=== PATIENT | female | born 1935 | race Caucasian/White ===

== ENCOUNTER 2017-07-05 02:18 | Inpatient (IN) | payer OTHER ==
[~2017-07-05] VITALS: Ht 160 cm; Wt 57.6 kg
[~2017-07-05 02:18] MED LIST: ALLO100T PO; AML5T PO; ASPI-231 PO; Atorvastatin Calcium PO; CLOP75TA28 PO; LEVO112T4 PO; LISI40TA PO; METO50TA7 PO; NITR0.4S29 SL
[2017-07-05] MEDS ORDERED: ONDANSETRON ODT 4 MG TAB PO ONE (02:45)
[2017-07-05 03:03] LABS: Basophils # (auto) 0 uL; CONDITION Y; DEFINITIVE SEE PRINTOUT; Eosinophils # (auto) 0 uL; Eosinophils % (auto) 0.1 % (0.0-7.0); Hematocrit 35.8 % (36.0-46.0); Hemoglobin 11.9 g/dL (12.2-16.2); Lymphocytes # (auto) 0.4 uL; Lymphocytes % (auto) 2.7 % (10.0-50.0); Mean Corpuscular Hemoglobin 27.8 pg (28.0-32.0); Mean Corpuscular Hgb Conc. 33.3 g/dL (32.0-36.0); Mean Corpuscular Volume 83.6 fL (80.0-100.0); Mean Platelet Volume 7.9 fL (7.4-10.4); Monocytes # (auto) 1.2 uL; Monocytes % (auto) 8.9 % (0.0-12.0); Neutrophils # (auto) 11.8 uL; Neutrophils % (auto) 88.3 % (37.0-80.0); Platelet Count (auto) 376 10^3/uL (140-450); White Blood Cell 13.4 10^3/uL (4.4-10.8)
[2017-07-05 03:21] LABS: Albumin 3.1 g/dL (3.4-5.0); Anion Gap 12 (5-15); Aspartate Aminotransferase 15 U/L (15-37); BUN/Creatinine Ratio 22.7; Blood Urea Nitrogen 32 mg/dL (7-18); Calcium 8.8 mg/dL (8.5-10.1); Carbon Dioxide 24 mmol/L (21-32); Chloride 108 mmol/L (98-107); GFR African American 46 mL/min; GFR Non-African American 38 mL/min; Glucose 144 mg/dL (74-106); Potassium 3.3 mmol/L (3.5-5.1); Sodium 144 mmol/L (136-145)
[2017-07-05 03:26] LABS: Alkaline Phosphatase 100 U/L (45-117); Bilirubin, Total 0.7 mg/dL (0.2-1.0); Total Protein 7.1 g/dL (6.4-8.2)
[2017-07-05 03:35] LABS: Platelet Estimate Adequate
[2017-07-05 03:36] LABS: Anisocytosis Slight; Ovalocytes FEW
[2017-07-05 08:02] LABS: Urine Blood Negative /uL (Negative); Urine Color Yellow (Yellow); Urine Glucose Normal (Normal); Urine Hyaline Cast MANY /lpf (0 - 2); Urine Ketone Negative (Negative); Urine Mucus FEW (None Seen); Urine Nitrite Negative (Negative); Urine RBC 3 /hpf (0 - 4); Urine Squamous Epithelial Cell FEW /hpf (<5)
[2017-07-05 08:17] LABS: Urine Bilirubin 1+ (Negative)
[2017-07-05] MEDS ORDERED: cefTRIAXone 1GM/50ML D5W 50 ML IV ONE ×2 (08:38→08:45)
[2017-07-05] MEDS ORDERED: SODIUM CHLORIDE 0.9% 1,000 ML IV ONE (08:45)
[2017-07-05] MEDS ORDERED: GASTROGRAFIN 120 ML SOL ONE (09:52)
[2017-07-05] MEDS ORDERED: ONDANSETRON HCL 4 MG/2 ML VIAL IV ONE (11:20)
[2017-07-05] MEDS ORDERED: ONDANSETRON HCL 4 MG/2 ML VIAL ONE (11:26)
[2017-07-05] MEDS ORDERED: LOSA100T25 PO (14:49)
[2017-07-05] MEDS ORDERED: HYDR100T9 PO (14:49)
[2017-07-05] MEDS ORDERED: ATOR40TA52 PO (14:49)
[2017-07-05] MEDS ORDERED: AMLO10TA2 PO (14:49)
[2017-07-05] MEDS ORDERED: FER325T PO (14:49)
[2017-07-05] MEDS ORDERED: LEV100T PO (14:49)
[2017-07-05] MEDS ORDERED: RANI1TAB6 PO (14:49)
[2017-07-05] MEDS ORDERED: ACETAMINOPHEN 325 MG TAB PO PRN (15:15)
[2017-07-05] MEDS ORDERED: NITROGLYCERIN 0.4 MG SL TAB SL PRN (15:15)
[2017-07-05] MEDS ORDERED: ONDANSETRON HCL 4 MG/2 ML VIAL IV PRN (15:15)
[2017-07-05] MEDS ORDERED: MORPHINE SULF INJ 2 MG/ML SYRINGE 1ML IV PRN (15:15)
[2017-07-05] MEDS ORDERED: POTASSIUM CHLORIDE 20 MEQ, LIDOCAINE 1% (LOCAL ANESTH.) 2 ML in SODIUM CHL 0.9% 100 ML IV ONE (15:15)
[2017-07-05] MEDS: SOD CHL 0.9%/ KCL 20MEQ 1,000 ML IV SCH (16:05)
[2017-07-05] MEDS: FAMOTIDINE (10MG/ML) 2ML VL IV SCH (16:05)
[2017-07-05 17:30] VITALS: BP 121/49
[2017-07-05] MEDS: metroNIDAZOLE 500MG/100ML 100 ML IV SCH (17:38)
[2017-07-05 20:00] VITALS: BP 127/61
[2017-07-05 22:00] VITALS: BP 127/61
[2017-07-06] MEDS: metroNIDAZOLE 500MG/100ML 100 ML IV SCH ×3 (00:37→12:08)
[2017-07-06] MEDS: SOD CHL 0.9%/ KCL 20MEQ 1,000 ML IV SCH ×2 (04:36→11:15)
[2017-07-06 04:58] VITALS: BP 99/46
[2017-07-06 06:24] LABS: Basophils # (auto) 0 uL; Basophils % (auto) 0.3 % (0.0-2.0); CONDITION Y; DEFINITIVE SEE PRINTOUT; Eosinophils # (auto) 0.1 uL; Eosinophils % (auto) 2.1 % (0.0-7.0); Hematocrit 27.8 % (36.0-46.0); Lymphocytes # (auto) 0.8 uL; Lymphocytes % (auto) 17.2 % (10.0-50.0); Mean Corpuscular Hemoglobin 27.7 pg (28.0-32.0); Mean Corpuscular Hgb Conc. 32.5 g/dL (32.0-36.0); Mean Corpuscular Volume 85.2 fL (80.0-100.0); Mean Platelet Volume 8.1 fL (7.4-10.4); Monocytes # (auto) 0.4 uL; Monocytes % (auto) 7.8 % (0.0-12.0); Neutrophils # (auto) 3.3 uL; Neutrophils % (auto) 72.6 % (37.0-80.0); Platelet Count (auto) 253 10^3/uL (140-450); White Blood Cell 4.6 10^3/uL (4.4-10.8)
[2017-07-06 06:49] LABS: Potassium 3.7 mmol/L (3.5-5.1)
[2017-07-06 06:57] LABS: Albumin 2.4 g/dL (3.4-5.0); BUN/Creatinine Ratio 25.2; Calcium 7.9 mg/dL (8.5-10.1)
[2017-07-06 07:00] LABS: Bilirubin, Total 0.3 mg/dL (0.2-1.0); Total Protein 5.5 g/dL (6.4-8.2)
[2017-07-06 07:20] LABS: Anisocytosis Slight; Platelet Estimate Adequate
[2017-07-06 09:00] VITALS: BP 143/66
[2017-07-06] MEDS: FAMOTIDINE (10MG/ML) 2ML VL IV SCH (09:09)
[2017-07-06] MEDS ORDERED: LEVOTHYROXINE SODIUM 100 MCG TAB PO ONE (10:45)
[2017-07-06] MEDS ORDERED: METR250T PO (11:05)
[2017-07-06 13:11] VITALS: BP 107/60
[2017-07-06 17:00] VITALS: BP 158/70
[2017-07-06] MEDS ORDERED: ATORVASTATIN 20 MG TAB PO SCH (22:00)
[2017-07-07] MEDS ORDERED: LEVOTHYROXINE SODIUM 100 MCG TAB PO SCH (10:00)
== END 2017-07-06 18:00 | disposition home health service (06) | DRG 389 ==
LOC: ER 02:18 → TELE 02:19 → TELE-CENTR 17:30
PROVIDERS: ADMIT Hospitalist; ATTEND Hospitalist
DX: K56.60 Unspecified intestinal obstruction (principal); N39.0 Urinary tract infection, site not specified; I11.9 Hypertensive heart disease without heart failure; I10 Essential (primary) hypertension; M10.9 Gout, unspecified; K21.9 Gastro-esophageal reflux disease without esophagitis; I25.10 Atherosclerotic heart disease of native coronary artery without angina pectoris; K59.00 Constipation, unspecified; E03.9 Hypothyroidism, unspecified; Z96.643 Presence of artificial hip joint, bilateral; Z90.710 Acquired absence of both cervix and uterus; Z85.41 Personal history of malignant neoplasm of cervix uteri; Z82.49 Family history of ischemic heart disease and other diseases of the circulatory system; I25.2 Old myocardial infarction; Z92.21 Personal history of antineoplastic chemotherapy; Z79.82 Long term (current) use of aspirin; Z79.899 Other long term (current) drug therapy
CPT/HCPCS: 36415; 74176; 74250; 80053; 81001; 83690; 84484; 85025; 87493; 93005; 96365; 96375; 97163; J0696; J2001; J2405; J3490; Q0162

== ENCOUNTER 2018-04-15 20:28 | Emergency (ER) | payer OTHER ==
[~2018-04-15] VITALS: Ht 157.5 cm; Wt 60.8 kg
[~2018-04-15 20:28] MED LIST changes: -ALLO100T PO; -AML5T PO; +AMLO10TA2 PO; +ATOR40TA52 PO; -Atorvastatin Calcium PO; +HYDR-4298 PO; +LEV100T PO; -LEVO112T4 PO; -LISI40TA PO; -METO50TA7 PO; +METR250T PO; -NITR0.4S29 SL; +RANI1TAB6 PO
[2018-04-15] MEDS ORDERED: PANTOPRAZOLE 40 MG/10 ML VIAL IV STA (20:34)
[2018-04-15] MEDS ORDERED: KETOROLAC TROMETH 30 MG/ML 1ML VIAL IV ONE (20:45)
[2018-04-15] MEDS ORDERED: ONDANSETRON HCL 4 MG/2 ML VIAL IV ONE (20:45)
[2018-04-15 21:42] LABS: Basophils # (auto) 0 uL; Basophils % (auto) 0.1 % (0.0-2.0); Eosinophils # (auto) 0 uL; Eosinophils % (auto) 0.2 % (0.0-7.0); Hematocrit 35.3 % (36.0-46.0); Hemoglobin 11.9 g/dL (12.2-16.2); Lymphocytes # (auto) 0.3 uL; Lymphocytes % (auto) 3.2 % (10.0-50.0); Mean Corpuscular Hemoglobin 29.8 pg (28.0-32.0); Mean Corpuscular Hgb Conc. 33.6 g/dL (32.0-36.0); Mean Corpuscular Volume 88.7 fL (80.0-100.0); Monocytes # (auto) 0.5 uL; Monocytes % (auto) 4.9 % (0.0-12.0); Neutrophils # (auto) 9.9 uL; Neutrophils % (auto) 91.6 % (37.0-80.0); Nucleated Red Blood Cells % 0.1 %; Platelet Count (auto) 242 10^3/uL (140-450); Red Blood Cells 3.98 10^6/uL (4.0-5.20); Red Cell Distribution Width 14.7 % (11.8-14.3); White Blood Cell 10.9 10^3/uL (4.4-10.8)
[2018-04-15 21:56] LABS: Amylase 43 U/L (25-115); Anion Gap 10 (5-15); Blood Urea Nitrogen 26 mg/dL (7-18); Calcium 8.6 mg/dL (8.5-10.1); Carbon Dioxide 20 mmol/L (21-32); Chloride 115 mmol/L (98-107); Glucose 140 mg/dL (74-106); INR 0.95 (0.9-1.15); Lipase 136 U/L (73-393); Magnesium 1.8 mg/dL (1.6-2.6); Partial Thromboplastin Time 27.9 sec (23.78-33.04); Potassium 3.4 mmol/L (3.5-5.1); Prothrombin Time 10.2 sec (9.27-12.13); Sodium 145 mmol/L (136-145)
[2018-04-15 21:57] LABS: Alanine Aminotransferase 18 U/L (13-56); Aspartate Aminotransferase 15 U/L (15-37); GFR African American 59 mL/min; GFR Non-African American 49 mL/min
[2018-04-15] MEDS ORDERED: IOHEXOL 300 MG/ML 100ML BOTTLE IJ ONE (21:58)
[2018-04-15 22:03] LABS: Alkaline Phosphatase 78 U/L (45-117); Bilirubin, Total 0.4 mg/dL (0.2-1.0); Total Protein 6.9 g/dL (6.4-8.2)
[2018-04-16 00:39] VITALS: BP 148/75
== END 2018-04-16 00:40 | disposition home or self-care (01) ==
LOC: ER 20:28 → EDBD 20:28 → ER 04-16 00:40
DX: K80.20 Calculus of gallbladder without cholecystitis without obstruction (principal); R07.89 Other chest pain; I25.2 Old myocardial infarction; E07.89 Other specified disorders of thyroid; K21.9 Gastro-esophageal reflux disease without esophagitis; Z90.710 Acquired absence of both cervix and uterus; Z79.899 Other long term (current) drug therapy
CPT/HCPCS: 36415; 71045; 74176; 80053; 82150; 83690; 83735; 83880; 84443; 84484; 85025; 85610; 85730; 93005; 94761; 96374; 96375; 99285; C9113; J1885; J2405; 81001

== ENCOUNTER 2020-03-04 18:15 | Inpatient (IN) | payer OTHER ==
[~2020-03-04] VITALS: Ht 157.5 cm; Wt 56.5 kg
[~2020-03-04 18:15] MED LIST changes: +AMLO10TA13 PO; -AMLO10TA2 PO; -CLOP75TA28 PO; -METR250T PO; +RANI-435 PO; -RANI1TAB6 PO
[2020-03-04] MEDS ORDERED: PANTOPRAZOLE 40 MG/10 ML VIAL INJ IV ONE (18:30)
[2020-03-04 18:46] LABS: Basophils # (auto) 0.1 10 ^3/uL (0-0.2); Basophils % (auto) 0.5 % (0.0-2.0); Eosinophils # (auto) 0 10 ^3/uL (0-0.8); Eosinophils % (auto) 0.1 % (0.0-7.0); Hematocrit 37.2 % (36.0-46.0); Lymphocytes # (auto) 0.5 10 ^3/uL (0.4-5.4); Lymphocytes % (auto) 4.2 % (10.0-50.0); Mean Corpuscular Hemoglobin 26.9 pg (28.0-32.0); Mean Corpuscular Hgb Conc. 32.3 g/dL (32.0-36.0); Mean Corpuscular Volume 83.2 fL (80.0-100.0); Monocytes # (auto) 0.8 10 ^3/uL (0-1.3); Monocytes % (auto) 6.8 % (0.0-12.0); Neutrophils # (auto) 10.8 10 ^3/uL (1.6-8.6); Neutrophils % (auto) 88.4 % (37.0-80.0); Nucleated Red Blood Cells % 0.1 %; Platelet Count (auto) 418 10^3/uL (140-450); Red Blood Cells 4.47 10^6/uL (4.0-5.20); Red Cell Distribution Width 16.8 % (11.8-14.3); White Blood Cell 12.2 10^3/uL (4.4-10.8)
[2020-03-04 19:01] LABS: Albumin 3.7 g/dL (3.4-5.0); Anion Gap 11 (5-15); Blood Urea Nitrogen 54 mg/dL (7-18); Calcium 9.3 mg/dL (8.5-10.1); Carbon Dioxide 20 mmol/L (21-32); Chloride 105 mmol/L (98-107); Glucose 137 mg/dL (74-106); Lipase 124 U/L (73-393); Magnesium 2.4 mg/dL (1.6-2.6); Potassium 4.3 mmol/L (3.5-5.1); Sodium 136 mmol/L (136-145)
[2020-03-04 19:05] LABS: Alanine Aminotransferase 13 U/L (13-56); Alkaline Phosphatase 114 U/L (45-117); Aspartate Aminotransferase 16 U/L (15-37); BUN/Creatinine Ratio 36.2; Bilirubin, Total 0.7 mg/dL (0.2-1.0); GFR African American 43 mL/min; GFR Non-African American 35 mL/min; Total Protein 8.3 g/dL (6.4-8.2)
[2020-03-04 21:09] LABS: Urine Bacteria NONE SEEN /hpf (None Seen); Urine Blood Negative /uL (Negative); Urine Hyaline Cast FEW /lpf (0 - 2); Urine Specific Gravity 1.019 (1.001-1.035); Urine WBC 14 /hpf (0 - 5)
[2020-03-04] MEDS ORDERED: NITROGLYCERIN 0.4 MG SL TAB SL PRN (21:15)
[2020-03-04] MEDS ORDERED: hydrALAZINE HCL 20 MG/ML VL IV PRN (21:15)
[2020-03-04] MEDS ORDERED: MORPHINE SULF INJ 2 MG/ML SYRINGE 1ML IV PRN (21:15)
[2020-03-04] MEDS ORDERED: FURO20TA3 PO (23:27)
[2020-03-04] MEDS ORDERED: SPIR50TA5 PO (23:27)
[2020-03-04] MEDS ORDERED: POTA10TA51 PO (23:27)
[2020-03-04] MEDS ORDERED: MAGN400T40 OR (23:27)
[2020-03-04] MEDS ORDERED: LOSA-39 PO (23:27)
[2020-03-04] MEDS ORDERED: LORazepam 2MG/ML-1ML VIAL IV ONE (23:30)
[2020-03-04 23:31] VITALS: BP 155/76
[2020-03-05 05:00] VITALS: BP 145/63
[2020-03-05 05:54] LABS: Basophils # (auto) 0 10 ^3/uL (0-0.2); Basophils % (auto) 0.3 % (0.0-2.0); Eosinophils # (auto) 0.1 10 ^3/uL (0-0.8); Eosinophils % (auto) 1.1 % (0.0-7.0); Hematocrit 33.3 % (36.0-46.0); Hemoglobin 10.9 g/dL (12.2-16.2); Lymphocytes # (auto) 0.5 10 ^3/uL (0.4-5.4); Lymphocytes % (auto) 6.4 % (10.0-50.0); Mean Corpuscular Hemoglobin 27.2 pg (28.0-32.0); Mean Corpuscular Hgb Conc. 32.9 g/dL (32.0-36.0); Mean Corpuscular Volume 82.7 fL (80.0-100.0); Monocytes % (auto) 12.3 % (0.0-12.0); Neutrophils # (auto) 6.5 10 ^3/uL (1.6-8.6); Neutrophils % (auto) 79.9 % (37.0-80.0); Nucleated Red Blood Cells % 0.1 %; Platelet Count (auto) 357 10^3/uL (140-450); Red Blood Cells 4.02 10^6/uL (4.0-5.20); Red Cell Distribution Width 16.6 % (11.8-14.3); White Blood Cell 8.1 10^3/uL (4.4-10.8)
[2020-03-05 06:34] LABS: Calcium 8.8 mg/dL (8.5-10.1); Potassium 4.1 mmol/L (3.5-5.1)
[2020-03-05 06:37] LABS: BUN/Creatinine Ratio 40.7
[2020-03-05 07:55] LABS: INR 1.03 (0.9-1.15); Partial Thromboplastin Time 26.2 sec (23.64-32.05)
[2020-03-05] MEDS ORDERED: GASTROGRAFIN 120 ML SOL ONE (09:17)
[2020-03-05] MEDS: ENOXAPARIN SOD 30 MG/0.3 ML SYRINGE SC SCH (11:16)
[2020-03-05] MEDS: LEVOTHYROXINE SODIUM 100 MCG/5 ML INJ IV SCH (11:16)
[2020-03-05] MEDS ORDERED: hydrALAZINE HCL 20 MG/ML VL IV PRN (11:45)
[2020-03-05 13:00] VITALS: BP 154/72
[2020-03-05] MEDS: MORPHINE SULFATE 4 MG/ML SYR/VIAL IV PRN ×2 (14:17→18:42)
[2020-03-05] MEDS: ONDANSETRON HCL 4 MG/2 ML VIAL IV PRN ×3 (14:18→23:16)
[2020-03-05] MEDS: SOD CHL 0.45% 1,000 ML IV SCH (17:01)
[2020-03-05 17:13] VITALS: BP 135/57
[2020-03-05 22:00] VITALS: BP 136/59
[2020-03-06] MEDS: ONDANSETRON HCL 4 MG/2 ML VIAL IV PRN ×2 (03:54→11:18)
[2020-03-06 05:00] VITALS: BP 139/66
[2020-03-06 06:41] LABS: Basophils # (auto) 0 10 ^3/uL (0-0.2); Basophils % (auto) 0.3 % (0.0-2.0); Eosinophils # (auto) 0 10 ^3/uL (0-0.8); Eosinophils % (auto) 0.4 % (0.0-7.0); Hematocrit 35.8 % (36.0-46.0); Hemoglobin 11.6 g/dL (12.2-16.2); Lymphocytes # (auto) 0.4 10 ^3/uL (0.4-5.4); Lymphocytes % (auto) 9.6 % (10.0-50.0); Mean Corpuscular Hemoglobin 27.2 pg (28.0-32.0); Mean Corpuscular Hgb Conc. 32.3 g/dL (32.0-36.0); Mean Corpuscular Volume 84.2 fL (80.0-100.0); Monocytes # (auto) 0.7 10 ^3/uL (0-1.3); Monocytes % (auto) 15.4 % (0.0-12.0); Neutrophils # (auto) 3.3 10 ^3/uL (1.6-8.6); Neutrophils % (auto) 74.3 % (37.0-80.0); Nucleated Red Blood Cells % 0.1 %; Platelet Count (auto) 408 10^3/uL (140-450); Red Blood Cells 4.25 10^6/uL (4.0-5.20); Red Cell Distribution Width 16.2 % (11.8-14.3); White Blood Cell 4.4 10^3/uL (4.4-10.8)
[2020-03-06 06:58] LABS: BUN/Creatinine Ratio 38.4; Calcium 9.2 mg/dL (8.5-10.1); Potassium 4.5 mmol/L (3.5-5.1)
[2020-03-06 09:00] VITALS: BP 157/61
[2020-03-06] MEDS: LEVOTHYROXINE SODIUM 100 MCG/5 ML INJ IV SCH (09:17)
[2020-03-06] MEDS: ENOXAPARIN SOD 30 MG/0.3 ML SYRINGE SC SCH (09:17)
[2020-03-06] MEDS: SOD CHL 0.45% 1,000 ML IV SCH (11:18)
[2020-03-06 13:00] VITALS: BP 139/57
[2020-03-06] MEDS ORDERED: PROMETHAZINE HCL 25 MG/ML 1ML IV PRN (14:15)
[2020-03-06] MEDS ORDERED: FLEET MINERAL OIL ENEMA 133 ML PR ONE (14:15)
[2020-03-06] MEDS ORDERED: BENZOCAINE (DENTAL) 20 % SPRAY 60ML MT PRN (14:15)
[2020-03-06] MEDS ORDERED: SORE THROAT SPRAY 6OZ BOTTLE MT PRN (15:30)
[2020-03-06 17:40] VITALS: BP 163/62
[2020-03-06 18:07] VITALS: BP 152/66
[2020-03-06 22:00] VITALS: BP 144/57
[2020-03-07 05:00] VITALS: BP 131/51
[2020-03-07 06:10] LABS: Basophils # (auto) 0 10 ^3/uL (0-0.2); Basophils % (auto) 0.5 % (0.0-2.0); Eosinophils # (auto) 0.1 10 ^3/uL (0-0.8); Eosinophils % (auto) 1.9 % (0.0-7.0); Hematocrit 31.5 % (36.0-46.0); Hemoglobin 10.2 g/dL (12.2-16.2); Lymphocytes # (auto) 0.5 10 ^3/uL (0.4-5.4); Lymphocytes % (auto) 12.9 % (10.0-50.0); Mean Corpuscular Hemoglobin 27.1 pg (28.0-32.0); Mean Corpuscular Hgb Conc. 32.3 g/dL (32.0-36.0); Mean Corpuscular Volume 83.8 fL (80.0-100.0); Monocytes # (auto) 0.5 10 ^3/uL (0-1.3); Monocytes % (auto) 13.6 % (0.0-12.0); Neutrophils # (auto) 2.6 10 ^3/uL (1.6-8.6); Neutrophils % (auto) 71.1 % (37.0-80.0); Nucleated Red Blood Cells % 0.1 %; Platelet Count (auto) 316 10^3/uL (140-450); Red Blood Cells 3.76 10^6/uL (4.0-5.20); Red Cell Distribution Width 16.5 % (11.8-14.3); White Blood Cell 3.6 10^3/uL (4.4-10.8)
[2020-03-07 06:29] LABS: BUN/Creatinine Ratio 52.3; Calcium 8.3 mg/dL (8.5-10.1); Potassium 3.6 mmol/L (3.5-5.1)
[2020-03-07 09:00] VITALS: BP 145/81
[2020-03-07] MEDS: LEVOTHYROXINE SODIUM 100 MCG/5 ML INJ IV SCH (09:08)
[2020-03-07] MEDS: SOD CHL 0.45% 1,000 ML IV SCH (09:08)
[2020-03-07] MEDS: ENOXAPARIN SOD 30 MG/0.3 ML SYRINGE SC SCH (09:09)
[2020-03-07 13:00] VITALS: BP 119/58
[2020-08-01] MEDS ORDERED: LOP2C PO (11:42)
[2020-08-01] MEDS ORDERED: SULF400T11 PO (11:42)
[2020-08-01] MEDS ORDERED: NYS15TP TOP (12:13)
[2020-08-01] MEDS ORDERED: CHL4PW PO (12:24)
[2020-08-01] MEDS ORDERED: HYDR50TA15 PO (12:24)
[2020-08-01] MEDS ORDERED: LEVO112T4 PO (12:24)
[2020-08-01] MEDS ORDERED: POTA10TA32 PO (12:24)
[2020-08-01] MEDS ORDERED: FURO20TA3 PO (12:24)
[2020-08-01] MEDS ORDERED: DEXA4TAB PO (12:24)
[2020-08-01] MEDS ORDERED: SPIR25TA8 PO (12:24)
[2020-08-01] MEDS ORDERED: SODI650T PO (12:24)
[2020-08-01] MEDS ORDERED: APIX2.5T PO (12:24)
[2020-08-01] MEDS ORDERED: FAMO-12 PO (12:24)
[2020-08-01] MEDS ORDERED: FLUC150T38 PO (17:55)
== END 2020-03-07 14:50 | disposition home health service (06) | DRG 389 ==
LOC: EDBD 18:15 → ER 18:15 → TELE 18:16 → TELE-WESTW 22:51
PROVIDERS: ADMIT Hospitalist; ATTEND Hospitalist
PROC: 0D9670Z Drainage of Stomach with Drainage Device, Via Natural or Artificial Opening (ICD-10-PCS; principal; 2020-03-07)
DX: K56.609 Unspecified intestinal obstruction, unspecified as to partial versus complete obstruction (principal); I13.0 Hypertensive heart and chronic kidney disease with heart failure and stage 1 through stage 4 chronic kidney disease, or unspecified chronic kidney disease; N18.3 Chronic kidney disease, stage 3 (moderate); K80.20 Calculus of gallbladder without cholecystitis without obstruction; E11.22 Type 2 diabetes mellitus with diabetic chronic kidney disease; E03.9 Hypothyroidism, unspecified; E78.5 Hyperlipidemia, unspecified; I25.10 Atherosclerotic heart disease of native coronary artery without angina pectoris; I44.1 Atrioventricular block, second degree; I48.91 Unspecified atrial fibrillation; K21.9 Gastro-esophageal reflux disease without esophagitis; I50.9 Heart failure, unspecified; Z85.41 Personal history of malignant neoplasm of cervix uteri; Z90.49 Acquired absence of other specified parts of digestive tract; I25.2 Old myocardial infarction; Z95.5 Presence of coronary angioplasty implant and graft; Z96.643 Presence of artificial hip joint, bilateral; Z90.710 Acquired absence of both cervix and uterus
CPT/HCPCS: 36415; 74176; 74250; 76705; 80048; 80053; 81001; 83690; 83735; 84484; 85025; 85610; 85730; 93005; 93306; C9113; G0378; J2405; J3490

== ENCOUNTER 2020-03-08 17:20 | Inpatient (IN) | payer OTHER ==
[~2020-03-08] VITALS: Ht 157.5 cm; Wt 71.6 kg
[~2020-03-08 17:20] MED LIST changes: +FURO20TA3 PO; +LOSA-39 PO; +MAGN400T40 OR; +POTA10TA51 PO; +SPIR50TA5 PO
[2020-03-08] MEDS ORDERED: SODIUM CHLORIDE 0.9% 500 ML IVB ONE (17:53)
[2020-03-08] MEDS ORDERED: ONDANSETRON HCL 4 MG/2 ML VIAL IV ONE ×2 (18:00→21:30)
[2020-03-08] MEDS ORDERED: MORPHINE SULFATE 4 MG/ML SYR/VIAL IV ONE (18:00)
[2020-03-08 18:19] LABS: Basophils # (auto) 0 10 ^3/uL (0-0.2); Basophils % (auto) 0.1 % (0.0-2.0); Eosinophils # (auto) 0 10 ^3/uL (0-0.8); Eosinophils % (auto) 0.1 % (0.0-7.0); Hematocrit 37.8 % (36.0-46.0); Hemoglobin 12.3 g/dL (12.2-16.2); Lymphocytes # (auto) 0.5 10 ^3/uL (0.4-5.4); Lymphocytes % (auto) 7.2 % (10.0-50.0); Mean Corpuscular Hemoglobin 27.2 pg (28.0-32.0); Mean Corpuscular Hgb Conc. 32.4 g/dL (32.0-36.0); Mean Corpuscular Volume 83.8 fL (80.0-100.0); Monocytes # (auto) 1.1 10 ^3/uL (0-1.3); Monocytes % (auto) 17.7 % (0.0-12.0); Neutrophils # (auto) 4.8 10 ^3/uL (1.6-8.6); Neutrophils % (auto) 74.9 % (37.0-80.0); Platelet Count (auto) 416 10^3/uL (140-450); Red Blood Cells 4.51 10^6/uL (4.0-5.20); Red Cell Distribution Width 16.4 % (11.8-14.3); White Blood Cell 6.3 10^3/uL (4.4-10.8)
[2020-03-08 18:38] LABS: Albumin 3.2 g/dL (3.4-5.0); BUN/Creatinine Ratio 45.2; Calcium 9.1 mg/dL (8.5-10.1); Potassium 4.2 mmol/L (3.5-5.1)
[2020-03-08 18:41] LABS: Bilirubin, Total 0.7 mg/dL (0.2-1.0); Total Protein 7.7 g/dL (6.4-8.2)
[2020-03-08] MEDS ORDERED: MORPHINE SULF INJ 2 MG/ML SYRINGE 1ML IV ONE (21:30)
[2020-03-09] MEDS ORDERED: MORPHINE SULF INJ 2 MG/ML SYRINGE 1ML IV PRN ×2 (00:30)
[2020-03-09] MEDS ORDERED: NITROGLYCERIN 0.4 MG SL TAB SL PRN (00:30)
[2020-03-09] MEDS ORDERED: LACTULOSE 20Gm/30ML SOLN PO ONE (00:30)
[2020-03-09 01:50] VITALS: BP 155/49
--- NOTE | 2020-03-09 01:50 | NUR ---
MS admit from [facility] admitted to [facility]. Patient oriented to CRISTINA MARCIAL, RN primary RN, unit, room, bed, and unit policies regarding patient care and visiting hours. Patient weighed by bedscale and encouraged to call if they need something. All questions and concerns addressed, patient verbalized understanding.
[2020-03-09 04:35] LABS: Urine Bacteria FEW /hpf (None Seen); Urine Blood Negative /uL (Negative); Urine Hyaline Cast MOD /lpf (0 - 2); Urine Mucus FEW (None Seen); Urine Specific Gravity 1.022 (1.001-1.035); Urine WBC 1 /hpf (0 - 5)
[2020-03-09 05:00] VITALS: BP 132/80
[2020-03-09 06:03] LABS: Basophils # (auto) 0 10 ^3/uL (0-0.2); Basophils % (auto) 0.2 % (0.0-2.0); Eosinophils # (auto) 0 10 ^3/uL (0-0.8); Eosinophils % (auto) 0.5 % (0.0-7.0); Hematocrit 31.5 % (36.0-46.0); Hemoglobin 10.4 g/dL (12.2-16.2); Lymphocytes # (auto) 0.5 10 ^3/uL (0.4-5.4); Lymphocytes % (auto) 12.4 % (10.0-50.0); Mean Corpuscular Hemoglobin 27.5 pg (28.0-32.0); Mean Corpuscular Volume 83.2 fL (80.0-100.0); Monocytes # (auto) 0.6 10 ^3/uL (0-1.3); Monocytes % (auto) 13.8 % (0.0-12.0); Neutrophils # (auto) 2.9 10 ^3/uL (1.6-8.6); Neutrophils % (auto) 73.1 % (37.0-80.0); Platelet Count (auto) 309 10^3/uL (140-450); Red Blood Cells 3.79 10^6/uL (4.0-5.20); Red Cell Distribution Width 16.6 % (11.8-14.3)
[2020-03-09 06:11] LABS: Potassium 4.2 mmol/L (3.5-5.1)
[2020-03-09 06:21] LABS: Albumin 2.7 g/dL (3.4-5.0); Bilirubin, Total 0.5 mg/dL (0.2-1.0); Calcium 8.7 mg/dL (8.5-10.1); Total Protein 6.7 g/dL (6.4-8.2)
[2020-03-09] MEDS: LEVOTHYROXINE SODIUM 100 MCG TAB PO SCH (06:27)
[2020-03-09] MEDS: SODIUM CHLORIDE 0.9% 1,000 ML IV SCH (08:00)
--- NOTE | 2020-03-09 08:00 | NUR ---
RECEIVED PATIENT ALERT AND ORIENTED X4, NOT IN DISTRESS, CLEAR LS IN BILATERAL LUNG LOBED, RR=18, SAT=97%, DEEP BREATHING AND COUGHING ENCOURAGED, DEMONSTRATED WELL, HEART R=58, DENIED CHEST PAIN OR SOB AT THIS MOMENT, ABDOMEN SOFT WITH HYPO ACTIVE BS, LAST BM=03/08/20 REPORTED, URINE INCONTINENT REPORTED, SKIN INTACT WARM TO TOUCH, RADIAL AND PEDAL PULSES PALPABLE, CAP REFILL<3 SECONDS, RESTING ON BED, DENIED PAIN, HEAD OF BED ELEVATED, BED ON LOW POSITION, RAILS UP X2, CALL LIGHT ON REACH, PENDING DIETARY AND SURGICAL CONSULT, WILL CONTINUE MONITORING.
[2020-03-09 08:54] LABS: INR 1.04 (0.9-1.15)
[2020-03-09 09:00] VITALS: BP 150/67
[2020-03-09] MEDS ORDERED: GASTROGRAFIN 120 ML SOL ONE (09:42)
[2020-03-09] MEDS: SPIRONOLACTONE 25 MG TAB PO SCH (10:22)
[2020-03-09] MEDS: LOSARTAN POTASSIUM 50 MG TAB PO SCH (10:23)
[2020-03-09] MEDS: FUROSEMIDE 20 MG TAB PO SCH (10:24)
[2020-03-09] MEDS: ASPirin-EC 81 mg tab PO SCH (10:24)
[2020-03-09] MEDS: amLODIPine BESYLATE 5 MG TAB PO SCH (10:25)
--- NOTE | 2020-03-09 12:11 | NUR ---
Nutrition Assessment Notes Please refer to link for full assessment notes. Est Energy needs: 7621-1259 kcals (20-23 kcal/kgBW) Est Protein needs: 54-60 gms/day (1.0-1.1 gm/kgBW) Will continue to monitor and reassess prn. Addendum: 03/09/20 at [address] Amended: Links added.
[2020-03-09 13:00] VITALS: BP 99/57
[2020-03-09] MEDS: ONDANSETRON HCL 4 MG/2 ML VIAL IV PRN (13:56)
--- NOTE | 2020-03-09 14:00 | NUR ---
NGT INSERTION PROVIDED ORDERED AND REFUSED, C/O N/V VOMIT VELEZ AND GREEN COLORED EMESES NOTED, ZOFRAN IV PRN WAS GIVEN ORDERED.
--- NOTE | 2020-03-09 16:09 | NUR ---
NGT EDUCATION PROVIDED, VERBALIZED UNDERSTANDING, NGT INSERTED ORDERED, TOLERATED AND COOPERATED WELL, PLACEMENT VERIFICATION X RAY WAS DONE, CONNECTED TO LOW CONTINUOS SUCTION, VELEZ AND GREEN COLORED EMESES ON SUCTION NOTED, RESTING ON BED AND DENIED PAIN AT THIS MOMENT, WILL CONTINUE MONITORING.
[2020-03-09 17:00] VITALS: BP 145/51
--- NOTE | 2020-03-09 19:10 | NUR ---
OPENING NOTE- NOC SHIFT PATIENT IS ALERT AND ORIENTED X4, ANSWERS IN COMPLETE SENTENCES AND MAKES APPROPRIATE EYE CONTACT. NO S/SX OF DISTRESS, SOB OR PAIN. PATIENT IS IN BED WATCHING TELEVISION. BED IS LOCKED AT LOWEST, BED RAILS UP X2, BEDSIDE TABLE WITHIN REACH, CALL LIGHT WITHIN REACH. DISCUSSED POC WITH PATIENT AND INSTRUCTED PATIENT TO CALL PRN; PATIENT VERBALIZED UNDERSTANDING. PATIENT HAS NG TUBE WITH INTERMITTENT SUCTION ORDERED. APPROX 5MLS IN CANISTER. SUCTION IS CONNECTED PROPERLY.
--- NOTE | 2020-03-09 19:21 | NUR ---
RESTING ON BED, NGT SUCTION CANISTER FULL OF LIGHT GREEN EMESIS NOTED, CANISTER REMOVED AND REPLACED WITH NEW, NOT IN DISTRESS, REPORT WAS GIVEN TO THE BARREL SCRAPER RN. Addendum: 03/10/20 at 1923 by Anuja Hunt RN RESTING ON BED, NGT SUCTION CANISTER FULL OF LIGHT GREEN 900 CC EMESIS NOTED, CANISTER REMOVED AND REPLACED WITH NEW, NOT IN DISTRESS, REPORT WAS GIVEN TO THE BARREL SCRAPER RN.
--- NOTE | 2020-03-09 20:00 | NUR ---
PATIENT REPORTS NG TUBE FELL OUT. PATIENT REFUSES TO HAVE ANOTHER NG TUBE INSERTED. PATIENT STATES THAT SHE BELIEVES IT IS DONE DRAINING. EDUCATED PATIENT WITH IMPORTANCE OF NG TUBE INSERTION; PATIENT VERBALIZED UNDERSTANDING AND STATED SHE WOULD SPEAK WITH THE DOCTOR IN THE MORNING AND THAT SHE WOULD ALSO BE REQUESTING TO HAVE BREAKFAST.
[2020-03-09 22:00] VITALS: BP 113/43
[2020-03-10] MEDS: SODIUM CHLORIDE 0.9% 1,000 ML IV SCH (04:17)
[2020-03-10 05:00] VITALS: BP 133/34
[2020-03-10 06:08] LABS: Basophils # (auto) 0 10 ^3/uL (0-0.2); Basophils % (auto) 0.2 % (0.0-2.0); Eosinophils # (auto) 0.1 10 ^3/uL (0-0.8); Eosinophils % (auto) 1.3 % (0.0-7.0); Hematocrit 35.5 % (36.0-46.0); Hemoglobin 11.4 g/dL (12.2-16.2); Lymphocytes # (auto) 0.7 10 ^3/uL (0.4-5.4); Lymphocytes % (auto) 12.5 % (10.0-50.0); Mean Corpuscular Hgb Conc. 32.2 g/dL (32.0-36.0); Mean Corpuscular Volume 83.9 fL (80.0-100.0); Monocytes # (auto) 0.4 10 ^3/uL (0-1.3); Monocytes % (auto) 7.2 % (0.0-12.0); Neutrophils # (auto) 4.4 10 ^3/uL (1.6-8.6); Neutrophils % (auto) 78.8 % (37.0-80.0); Nucleated Red Blood Cells % 0.2 %; Platelet Count (auto) 385 10^3/uL (140-450); Red Blood Cells 4.23 10^6/uL (4.0-5.20); Red Cell Distribution Width 16.4 % (11.8-14.3); White Blood Cell 5.5 10^3/uL (4.4-10.8)
[2020-03-10] MEDS: LEVOTHYROXINE SODIUM 100 MCG TAB PO SCH (06:32)
[2020-03-10 06:33] LABS: Potassium 3.8 mmol/L (3.5-5.1)
[2020-03-10 06:42] LABS: BUN/Creatinine Ratio 55.6; Calcium 8.9 mg/dL (8.5-10.1)
--- NOTE | 2020-03-10 07:20 | NUR ---
CLOSING NOTE- NOC SHIFT ENDORSED PATIENT CARE TO DAY SHIFT NURSE ESTEFANY ADORNO. PATIENT IS ALERT AND ORIENTED, RESTING IN BED. NO S/SX OF DISTRESS, SOB OR PAIN. PATIENT IS RUNNING NS AT 50 MLS. ESTEFANY ADORNO IS AWARE THAT PATIENT'S NG TUBE IS OUT AND ENDORSED FOLLOW UP WITH MD.
--- NOTE | 2020-03-10 08:00 | NUR ---
RECEIVED PATIENT ALERT AND ORIENTED X4, NOT IN DISTRESS, CLEAR LS IN BILATERAL LUNG LOBED, RR=18, SAT=98%, DEEP BREATHING AND COUGHING ENCOURAGED, DEMONSTRATED WELL, HEART R=68, DENIED CHEST PAIN OR SOB AT THIS MOMENT, ABDOMEN SOFT WITH HYPO ACTIVE BS, LAST BM=03/08/20 REPORTED, URINE INCONTINENT NOTED, SKIN INTACT WARM TO TOUCH, RADIAL AND PEDAL PULSES PALPABLE, CAP REFILL<3 SECONDS, RESTING ON BED, DENIED PAIN, HEAD OF BED ELEVATED, BED ON LOW POSITION, RAILS UP X2, CALL LIGHT ON REACH, WILL CONTINUE MONITORING.
[2020-03-10 09:00] VITALS: BP 141/48
[2020-03-10] MEDS: SPIRONOLACTONE 25 MG TAB PO SCH (10:24)
[2020-03-10] MEDS: FUROSEMIDE 20 MG TAB PO SCH (10:25)
[2020-03-10] MEDS: ASPirin-EC 81 mg tab PO SCH (10:25)
[2020-03-10] MEDS: LOSARTAN POTASSIUM 50 MG TAB PO SCH (10:27)
[2020-03-10] MEDS: amLODIPine BESYLATE 5 MG TAB PO SCH (10:27)
[2020-03-10 14:00] VITALS: BP 140/54
--- NOTE | 2020-03-10 14:56 | NUR ---
PENDING CARDIAC CONSULT AND ECHO, OUT OF BED TO THE CHAIR FOR 90 MINUETS, BACK TO BED AND RESTING ON BED PENDING NGT INSERTION ORDERED.
[2020-03-10 16:43] VITALS: BP 138/41
--- NOTE | 2020-03-10 17:30 | NUR ---
RESTING ON BED, NGT INSERTED AND CONNECTED TO SUCTION 300CC OF LIGHT GREEN EMESIS NOTED.
--- NOTE | 2020-03-10 19:05 | NUR ---
OPENING NOTE- NOC SHIFT RECEIVED REPORT FROM DAY SHIFT NURSE. PATIENT IS IN BED, BED IS LOCKED AT LOWEST POSITION. HEAD OF BED IS UP >45 DEGREES FOR SAFETY PRECAUTIONS. BEDSIDE TABLE WITHIN REACH, CALL LIGHT WITHIN REACH. PATIENT HAS NG TUBE DRAINING PROPERLY, 200 MLS OF GREEN LIQUID IN CANISTER. DISCUSSED POC WITH PATIENT AND INSTRUCTED PATIENT TO CALL PRN; PATIENT VERBALIZED UNDERSTANDING. WILL CONTINUE TO MONITOR Q1H AND PRN.
--- NOTE | 2020-03-10 19:24 | NUR ---
REPORT WAS GIVEN TO THE ORNAMENTAL METAL FABRICATOR APPRENTICE RN.
[2020-03-10 22:00] VITALS: BP 124/50
--- NOTE | 2020-03-10 22:00 | NUR ---
DAUGHTER CLAIR CALLED. UPDATED FAMILY WITH PATIENT CONDITION AFTER ACCOUNT PASSWORD CONFIRMED. DAUGHTER REQUESTS KATY FOR PATIENT; WILL CONFIRM WITH PATIENT. DAUGHTER STATES THAT PATIENT CALLED HER CRYING WORRIED ABOUT HAVING SURGERY.
--- NOTE | 2020-03-10 23:11 | NUR ---
IV INSERTION IV access obtained, via clean sterile technique by inserting 22 gauge catheter at left forearm after 4 attempt(s) from 3 different nurses. IV secured properly. No trauma to site. Patient tolerated well.
--- NOTE | 2020-03-10 23:11 | NUR ---
BOWEL MOVEMENT PATIENT REQUESTED BED CROWLEY. MODERATE AMOUNT OF DARK STOOL BOTH FORMED AND LIQUID.
--- NOTE | 2020-03-11 | NUR ---
BOWEL MOVEMENT PATIENT HAD SECOND BOWEL MOVEMENT FOR THIS SHIFT. MODERATE AMOUNT OF BOTH FORMED AND LIQUID USING BEDPAN.
[2020-03-11] MEDS: SODIUM CHLORIDE 0.9% 1,000 ML IV SCH (04:55)
[2020-03-11 05:00] VITALS: BP 132/53
[2020-03-11 06:08] LABS: Basophils # (auto) 0 10 ^3/uL (0-0.2); Basophils % (auto) 0.3 % (0.0-2.0); Eosinophils # (auto) 0.1 10 ^3/uL (0-0.8); Eosinophils % (auto) 1.1 % (0.0-7.0); Hematocrit 37.2 % (36.0-46.0); Hemoglobin 11.5 g/dL (12.2-16.2); Lymphocytes # (auto) 0.7 10 ^3/uL (0.4-5.4); Lymphocytes % (auto) 11.4 % (10.0-50.0); Mean Corpuscular Hemoglobin 27.2 pg (28.0-32.0); Mean Corpuscular Hgb Conc. 30.9 g/dL (32.0-36.0); Mean Corpuscular Volume 87.9 fL (80.0-100.0); Monocytes # (auto) 0.4 10 ^3/uL (0-1.3); Monocytes % (auto) 6.5 % (0.0-12.0); Neutrophils # (auto) 5.3 10 ^3/uL (1.6-8.6); Neutrophils % (auto) 80.7 % (37.0-80.0); Platelet Count (auto) 376 10^3/uL (140-450); Red Blood Cells 4.23 10^6/uL (4.0-5.20); Red Cell Distribution Width 17.8 % (11.8-14.3); White Blood Cell 6.6 10^3/uL (4.4-10.8)
[2020-03-11 06:15] LABS: BUN/Creatinine Ratio 60.2; Calcium 8.4 mg/dL (8.5-10.1); Potassium 3.9 mmol/L (3.5-5.1)
[2020-03-11] MEDS: LEVOTHYROXINE SODIUM 100 MCG TAB PO SCH (07:07)
--- NOTE | 2020-03-11 08:00 | NUR ---
Morning note Patient resting in bed with even and unlabored respirations, no distress noted. Instructed patient on POC, fall precautions and to call for assistance as needed. Patient verbalized understanding. Fall precautions in place with call light within reach. NGT present and connected to suction per MD order.
--- NOTE | 2020-03-11 08:26 | NUR ---
Paged Dr. Dooley to notify MD of patient's BM's
[2020-03-11 09:00] VITALS: BP 125/51
--- NOTE | 2020-03-11 09:28 | NUR ---
Updated Dr. Dooley Updated MD on patient's BM's and recent glucose level. MD verbalized understanding. Orders received and read back to verify.
[2020-03-11] MEDS: FUROSEMIDE 20 MG TAB PO SCH (10:35)
[2020-03-11] MEDS: SPIRONOLACTONE 25 MG TAB PO SCH (10:36)
[2020-03-11] MEDS: amLODIPine BESYLATE 5 MG TAB PO SCH (10:36)
[2020-03-11] MEDS: D5W/SOD CHL 0.45%/KCL 20MEQ 1,000 ML IV SCH ×2 (10:37→19:59)
[2020-03-11] MEDS: LOSARTAN POTASSIUM 50 MG TAB PO SCH (10:37)
[2020-03-11] MEDS: ASPirin-EC 81 mg tab PO SCH (10:37)
--- NOTE | 2020-03-11 10:41 | NUR ---
NGT removed per MD order Patient tolerated well. Suction container discolored. 400ml of green liquid in container. Call light within reach.
--- NOTE | 2020-03-11 12:30 | NUR ---
Patient tolerated lunch meal Patient denies N/V, abdominal pain.
[2020-03-11 13:00] VITALS: BP 121/53
--- NOTE | 2020-03-11 14:34 | NUR ---
Nutrition Follow-up Notes Wt.: 59.0 kg Pt was with MD when rounded this am. per pt records pt with SBO slowly resolving. pt now initiated on clear liq diet with no PO recorded yet as pt was NPO this am Est Energy needs: 8234-6840 kcals (20-23 kcal/kgBW), Est Protein needs: 54-60 gms/day (1.0-1.1 gm/kgBW). Will continue to monitor and reassess prn. Labs: BUN 71 H, CREAT 1.18 H, CA 8.4 L. Skin: Damon scale 18 mod risk GI: Pt had 1 BM yesterday per crm marketing specialist. PES: Altered nutrition related lab values r/t current medical condition aeb elev RFTs, low GFR, hyperglycemia, hypoalbuminemia Increased nutrient needs r/t low PO aeb pt`s npo Will continue to monitor PO intake, skin status, pertinent labs and weight trend. F/u in 2-3 days. Rec.: 1.) Gradually advance pt to oral diet when medically feasible and as tolerated . 2) Continue current plan of care
--- NOTE | 2020-03-11 15:15 | NUR ---
Patient had a large liquid brown BM - passing gas Patient cleansed and repositioned. Patient able to turn self independently. Patient denies N/V or abdominal pain. Bed returned to lowest locked position with call light within reach.
--- NOTE | 2020-03-11 15:18 | NUR ---
RE: diet Notified Dr. Vargas of KUB results. verbalized understanding. Order received and read back to verify.
[2020-03-11 16:40] VITALS: BP 116/50
--- NOTE | 2020-03-11 18:10 | NUR ---
Patient tolerated dinner meal Patient denies N/V, abdominal pain.
--- NOTE | 2020-03-11 18:42 | NUR ---
Closing note Patient resting in bed with even and unlabored respirations, no distress noted. Fall precautions in place with call light within reach. Patient denies N/V, or abdominal pain.
--- NOTE | 2020-03-11 19:15 | NUR ---
OPENING NOTE- NOC SHIFT PATIENT IS IN BED RESTING. NO S/SX OF DISTRESS OR SOB. BED IS LOCKED AT LOWEST POSITION, BED RAILS UP X2. PATIENT DENIES PAIN AT THIS TIME. BEDSIDE TABLE WITHIN REACH, CALL LIGHT WITHIN REACH. DISCUSSED POC WITH PATIENT AND INSTRUCTED PATIENT TO CALL USING CALL LIGHT; PATIENT VERBALIZED UNDERSTANDING. WILL CONTINUE TO MONITOR Q1H AND PRN.
--- NOTE | 2020-03-11 19:20 | NUR ---
Care endorsed to KYREE Farley.
--- NOTE | 2020-03-11 19:30 | NUR ---
USED BED CROWLEY. MODERATE AMOUNT LIQUID WITH FORMED STOOL. PARTIAL BED BATH COMPLETED AND COMPLETE BED LINEN CHANGE COMPLETED BY NURSE TURN DOWN WORKER. PATIENT COMFORTABLE IN BED.
[2020-03-11 22:00] VITALS: BP 134/101
--- NOTE | 2020-03-12 01:35 | NUR ---
PATIENT SITTING UP IN BED EATING JELLO INDEPENDENTLY. PATIENT TOLERATES WELL.
[2020-03-12] MEDS: D5W/SOD CHL 0.45%/KCL 20MEQ 1,000 ML IV SCH ×2 (04:26→16:31)
[2020-03-12 05:00] VITALS: BP 165/47
[2020-03-12 06:37] LABS: Basophils # (auto) 0.1 10 ^3/uL (0-0.2); Basophils % (auto) 0.6 % (0.0-2.0); Eosinophils # (auto) 0.1 10 ^3/uL (0-0.8); Eosinophils % (auto) 1.3 % (0.0-7.0); Hematocrit 35.8 % (36.0-46.0); Hemoglobin 11.2 g/dL (12.2-16.2); Lymphocytes # (auto) 0.8 10 ^3/uL (0.4-5.4); Lymphocytes % (auto) 8.7 % (10.0-50.0); Mean Corpuscular Hemoglobin 26.8 pg (28.0-32.0); Mean Corpuscular Hgb Conc. 31.2 g/dL (32.0-36.0); Mean Corpuscular Volume 85.9 fL (80.0-100.0); Monocytes # (auto) 0.7 10 ^3/uL (0-1.3); Monocytes % (auto) 7.2 % (0.0-12.0); Neutrophils % (auto) 82.2 % (37.0-80.0); Platelet Count (auto) 390 10^3/uL (140-450); Red Blood Cells 4.17 10^6/uL (4.0-5.20); Red Cell Distribution Width 17.1 % (11.8-14.3); White Blood Cell 9.8 10^3/uL (4.4-10.8)
[2020-03-12] MEDS: LEVOTHYROXINE SODIUM 100 MCG TAB PO SCH (06:44)
[2020-03-12 06:53] LABS: Calcium 8.2 mg/dL (8.5-10.1); Potassium 4.3 mmol/L (3.5-5.1)
[2020-03-12 06:57] LABS: BUN/Creatinine Ratio 43.1
--- NOTE | 2020-03-12 07:07 | NUR ---
CLOSING NOTE- NOC SHIFT PATIENT IS RESTING IN BED. PATIENT COMPLAINS OF DISCOMFORT TO ABDOMEN; HEAT PACK WAS PROVIDED AND PATIENT REPORTED RELIEF. NO S/SX OF DISTRESS, SOB OR PAIN. WILL ENDORSE PATIENT CARE TO DAY SHIFT RN.
--- NOTE | 2020-03-12 07:30 | NUR ---
Opening Shift Note Assumed care of patient, awake and alert. No S/S of distress/SOB or pain. Bed is low, locked with 2x side rails up. Call light is within reach. Instructed on POC and to call for assist PRN, will continue to monitor for changes Q1hr and PRN.
--- NOTE | 2020-03-12 08:30 | NUR ---
Spoke with Dr. Parkinson Received orders to discharge patient. Orders read back and verified. Will proceed with discharge.
[2020-03-12 09:00] VITALS: BP 163/74
--- NOTE | 2020-03-12 09:05 | NUR ---
Dr. Dooley would like gastrografin enema to be done by radiology before discharging patient. This nurse to inform MD of results. Will continue to monitor.
[2020-03-12] MEDS ORDERED: GASTROGRAFIN 120 ML SOL ONE (09:26)
--- NOTE | 2020-03-12 10:55 | NUR ---
Dr. Vargas at bedside Dr. Vargas recommending colonoscopy for Sunday based on gastrografin enema results. Will notify MD on case.
--- NOTE | 2020-03-12 11:45 | NUR ---
Holding Discharge Spoke with Dr. Parkinson and informed him that Dr. Vargas would like to do a Colonoscopy on Sunday based on results of this mornings gastrografin enema. Received orders to hold discharge at this time. Will carry out orders.
[2020-03-12] MEDS: SPIRONOLACTONE 25 MG TAB PO SCH (11:54)
[2020-03-12] MEDS: ASPirin-EC 81 mg tab PO SCH (11:54)
[2020-03-12] MEDS: amLODIPine BESYLATE 5 MG TAB PO SCH (11:54)
[2020-03-12] MEDS: FUROSEMIDE 20 MG TAB PO SCH (11:55)
[2020-03-12] MEDS: LOSARTAN POTASSIUM 50 MG TAB PO SCH (11:55)
--- NOTE | 2020-03-12 12:16 | NUR ---
Paging Dr. Vargas To inform him that patient agreed to do Colonoscopy on Sunday. Waiting for call back.
[2020-03-12 13:00] VITALS: BP 156/60
[2020-03-12] MEDS ORDERED: MAGNESIUM CITRATE SOLUTION 300 ML BTL PO ONE (13:30)
[2020-03-12] MEDS: ONDANSETRON HCL 4 MG/2 ML VIAL IV PRN ×2 (14:09→21:33)
--- NOTE | 2020-03-12 15:19 | NUR ---
Colonoscopy tomorrow Patient to have colonoscopy tomorrow with Dr. Vargas. Mag citrate to be given today. Will carry out orders.
[2020-03-12 16:33] VITALS: BP 128/62
--- NOTE | 2020-03-12 19:25 | NUR ---
assumed care, pt. awake, no c/o pain and nausea at this time, no sob.
[2020-03-12 22:09] VITALS: BP 155/65
[2020-03-13] VITALS (7 sets, daily range): BP systolic 114–149; BP diastolic 51–64
[2020-03-13] MEDS ORDERED: PANTOPRAZOLE 40 MG/10 ML VIAL INJ IV ONE
[2020-03-13] MEDS ORDERED: PANTOPRAZOLE 40 MG/10 ML VIAL INJ IV PRN
[2020-03-13] MEDS: MORPHINE SULF INJ 2 MG/ML SYRINGE 1ML IV PRN ×4 (00:19→21:09)
[2020-03-13] MEDS: D5W/SOD CHL 0.45%/KCL 20MEQ 1,000 ML IV SCH ×3 (01:33→21:58)
[2020-03-13] MEDS: ONDANSETRON HCL 4 MG/2 ML VIAL IV PRN ×3 (04:49→23:44)
[2020-03-13] MEDS: LEVOTHYROXINE SODIUM 100 MCG TAB PO SCH (06:05)
[2020-03-13 06:35] LABS: Basophils # (auto) 0 10 ^3/uL (0-0.2); Basophils % (auto) 0.2 % (0.0-2.0); Eosinophils # (auto) 0.1 10 ^3/uL (0-0.8); Eosinophils % (auto) 0.7 % (0.0-7.0); Hematocrit 32.7 % (36.0-46.0); Hemoglobin 10.7 g/dL (12.2-16.2); Lymphocytes # (auto) 0.7 10 ^3/uL (0.4-5.4); Lymphocytes % (auto) 10.2 % (10.0-50.0); Mean Corpuscular Hemoglobin 27.4 pg (28.0-32.0); Mean Corpuscular Hgb Conc. 32.8 g/dL (32.0-36.0); Mean Corpuscular Volume 83.3 fL (80.0-100.0); Monocytes # (auto) 0.8 10 ^3/uL (0-1.3); Monocytes % (auto) 10.7 % (0.0-12.0); Neutrophils # (auto) 5.7 10 ^3/uL (1.6-8.6); Neutrophils % (auto) 78.2 % (37.0-80.0); Platelet Count (auto) 356 10^3/uL (140-450); Red Blood Cells 3.93 10^6/uL (4.0-5.20); Red Cell Distribution Width 16.6 % (11.8-14.3); White Blood Cell 7.3 10^3/uL (4.4-10.8)
[2020-03-13 06:57] LABS: Calcium 8.2 mg/dL (8.5-10.1); Potassium 4.4 mmol/L (3.5-5.1)
[2020-03-13 07:02] LABS: Albumin 2.4 g/dL (3.4-5.0); BUN/Creatinine Ratio 29.6
[2020-03-13 07:04] LABS: Bilirubin, Total 0.3 mg/dL (0.2-1.0); Total Protein 5.9 g/dL (6.4-8.2)
--- NOTE | 2020-03-13 07:25 | NUR ---
Opening Shift Note Assumed care of patient, awake and alert and oriented x4. No S/S of distress/SOB, denies pain at this time. Plan of care discussed. Bed is low, locked with 2x side rails up. Call light is within reach. Encouraged to call for assist PRN, will continue to monitor for changes Q1hr and PRN. Patient is scheduled to have colonoscopy today consent signed
[2020-03-13] MEDS ORDERED: diphenhdrAMINE HCL 50 MG/1 ML VL ONE (08:42)
[2020-03-13] MEDS ORDERED: SODIUM CHLORIDE LOCK 10 ML ONE (08:42)
--- NOTE | 2020-03-13 09:00 | NUR ---
Tap water enema done and patient prepared to go to colonoscopy.
--- NOTE | 2020-03-13 09:48 | NUR ---
Patient's heart rate from AM vital signs is 44, and 47 upon recheck before taking for colonoscopy. Made RN in PACU aware of bradycardia. Patient is asymptomatic, denies dizziness or SOB.
--- NOTE | 2020-03-13 09:50 | NUR ---
patient currently is off unit for colonoscopy. will resume scheduled medication upon return to unit.
[2020-03-13] MEDS: MIDAZOLAM HCL 5 MG/ML-1ML VIAL ONE ×2 (10:00→10:08)
[2020-03-13] MEDS: amLODIPine BESYLATE 5 MG TAB PO SCH (10:00)
[2020-03-13] MEDS: fentaNYL CITRATE 100 MCG/2 ML VL ONE ×2 (10:00→10:08)
[2020-03-13] MEDS: SPIRONOLACTONE 25 MG TAB PO SCH (10:00)
[2020-03-13] MEDS: LOSARTAN POTASSIUM 50 MG TAB PO SCH (10:00)
--- NOTE | 2020-03-13 10:18 | NUR ---
Per Dr. Vargas, Colonoscopy went well and cleared from GI perspective. Ordered to advance diet as tolerated.
[2020-03-13] MEDS ORDERED: NALOXONE HCL 0.4 MG/ML VIAL ONE (10:30)
[2020-03-13] MEDS ORDERED: FLUMAZENIL 0.1 MG/ML INJ 10ML MDV IV ONE (10:30)
[2020-03-13] MEDS: ASPirin-EC 81 mg tab PO SCH (11:31)
[2020-03-13] MEDS: FUROSEMIDE 20 MG TAB PO SCH (11:31)
--- NOTE | 2020-03-13 11:40 | NUR ---
Paged Dr. De Leon regarding patient s/p colonoscopy and bradycardia status. Left a message with office staff. Awaiting a call back from Addendum: 03/13/20 at 1237 by Yara Valencia RN Time error Call time was 1040
--- NOTE | 2020-03-13 11:45 | NUR ---
Patient currently on tele monitor due to bradycardia status in the 40s. Patient is asymptomatic. Will continue to monitor for changes.
--- NOTE | 2020-03-13 13:28 | NUR ---
Paged and made MD aware of s/p colonoscopy update and informed of bradycardia, A-fib/A-flutter status. ordered to Monitor HR after eating. Phone cut off in the process. Will page and follow up with doctor to confirm complete orders.
--- NOTE | 2020-03-13 13:32 | NUR ---
Patient's HR continues to fluctuate in the 40s. Patient is resting in bed, denies pain or dizziness. Will continue to monitor.
--- NOTE | 2020-03-13 13:35 | NUR ---
Reassessed patient after paging the MD. HR is 44 while sitting up. Will continue to monitor for changes. paged MD again and awaiting callback
--- NOTE | 2020-03-13 16:33 | NUR ---
Assumed care of patient.
--- NOTE | 2020-03-13 16:46 | NUR ---
RE: Pain; discharge Notified Dr. Parkinson of patient's report of 4/10 pain in the abdomen. Patient reports passing gas. Patient provided with a heat pack for comfort and requesting pain medication. PRN pain medication not available for the rated pain. MD verbalized understanding. Okay to administer one dose of PRN morphine and continue to monitor patient's pain per MD. Patient is okay for discharge after monitoring patient for 1 hour after administration of PRN morphine per MD. Patient verbalized understanding to the plan and is okay with being discharged.
--- NOTE | 2020-03-13 17:32 | NUR ---
Spoke with MD RE: pain & nausea; discharge Updated Dr. Parkinson that patient's pain and nausea has improved, although patient feels "out of it" and "not okay to go home". Patient reports abdominal discomfort. MD verbalized understanding. Order received and read back to verify.
--- NOTE | 2020-03-13 18:52 | NUR ---
Closing note Patient resting in bed with eyes closed; respirations even and unlabored on 1L NC, no distress noted. Fall precautions in place with call light within reach; bed alarm on for safety.
--- NOTE | 2020-03-13 19:19 | NUR ---
Care endorsed to KYREE Lr.
--- NOTE | 2020-03-13 19:20 | NUR ---
OPENING SHIFT NOTE Assumed care or patient who s A&O x4. Currently on 1L NC with no s/s of distress. Patient denies pain at this time, reports nausea. Patient states that she had one episode of emesis "just a little bit ago". Reports that the nausea/emesis returned after eating dinner. Informed that nausea medication is not due at this time. Patient removed from bedpan at this time and keiko-care provided. PIV in right forearm is intact and patent. IVF infusing as ordered. PIV in left forearm intact and patent. NS locked. Bed is in low locked position with side rails up x2. Call light is within reach and patient encouraged to call for assistance when needed. Will continue to monitor for changes PRN.
--- NOTE | 2020-03-13 21:05 | NUR ---
NAUSEA/EMESIS Patient has had 4 episodes of clear yellow emesis totaling 200mL. Patient states she began feeling nauseous after attempting to eat her dinner (full liquid diet). Bowel sounds are present, and abdomen is soft and non-tender. Will continue to monitor.
--- NOTE | 2020-03-13 21:10 | NUR ---
PAIN Patient report 4/10 pain to abdomen. PRN pain medication not available for the rated pain. MD made aware of this my previous RN. Okay to administer PRN morphine and continue to monitor patient's pain per MD.
--- NOTE | 2020-03-14 | NUR ---
OPENING SHIFT NOTE Assumed care of patient who is A&O x4. Currently on RA with no s/s of distress. Denies pain a this time. NGT in right nare at 55cm, to LIS. Yellow colored drainage noted. Patient denies Abdominal pain or nausea at this time. PIV in left forearm intact and patent. Infusing Dobutamine as ordered. Continuous telemetry monitoring in place and current reading is A-flutter at 51. PIV in left hand is in tact and patent, infusing IVF as ordered. POC discussed and patient verbalizes understanding. Bed is in low locked position with collection systems technician rails up x2. Call light is within reach and patient encouraged to call for assistance when needed. Will continue to monitor for changes PRN. Addendum: 03/15/20 at 0028 by RANGEL MCCARTNEY RN RN incorrect time
[2020-03-14 05:00] VITALS: BP 128/52
[2020-03-14 05:16] LABS: Basophils # (auto) 0 10 ^3/uL (0-0.2); Basophils % (auto) 0.3 % (0.0-2.0); Eosinophils # (auto) 0.1 10 ^3/uL (0-0.8); Eosinophils % (auto) 1.1 % (0.0-7.0); Hematocrit 37.1 % (36.0-46.0); Hemoglobin 11.9 g/dL (12.2-16.2); Lymphocytes # (auto) 0.8 10 ^3/uL (0.4-5.4); Lymphocytes % (auto) 8.7 % (10.0-50.0); Mean Corpuscular Hemoglobin 27.1 pg (28.0-32.0); Mean Corpuscular Hgb Conc. 32.2 g/dL (32.0-36.0); Mean Corpuscular Volume 84.4 fL (80.0-100.0); Monocytes # (auto) 0.5 10 ^3/uL (0-1.3); Monocytes % (auto) 5.8 % (0.0-12.0); Neutrophils # (auto) 7.5 10 ^3/uL (1.6-8.6); Neutrophils % (auto) 84.1 % (37.0-80.0); Platelet Count (auto) 309 10^3/uL (140-450); Red Cell Distribution Width 17.1 % (11.8-14.3); White Blood Cell 8.9 10^3/uL (4.4-10.8)
[2020-03-14 05:34] LABS: BUN/Creatinine Ratio 23.5; Calcium 7.9 mg/dL (8.5-10.1); Potassium 4.8 mmol/L (3.5-5.1)
--- NOTE | 2020-03-14 05:45 | NUR ---
PATIENT CARE Per-care provided. Full linen change performed. Patient began to feel nauseous due to turning during care. HOB elevated and emesis bag provided. Will continue to monitor.
[2020-03-14] MEDS: ONDANSETRON HCL 4 MG/2 ML VIAL IV PRN ×2 (06:23→15:27)
[2020-03-14] MEDS: LEVOTHYROXINE SODIUM 100 MCG TAB PO SCH (06:23)
--- NOTE | 2020-03-14 07:30 | NUR ---
Morning note Patient resting in bed with eyes closed; respirations even and unlabored, no distress noted. Fall precautions in place with call light within reach.
[2020-03-14 09:00] VITALS: BP 167/57
[2020-03-14] MEDS: SPIRONOLACTONE 25 MG TAB PO SCH (09:52)
[2020-03-14] MEDS: amLODIPine BESYLATE 5 MG TAB PO SCH (09:52)
[2020-03-14] MEDS: ASPirin-EC 81 mg tab PO SCH (09:52)
[2020-03-14] MEDS: LOSARTAN POTASSIUM 50 MG TAB PO SCH (09:53)
[2020-03-14] MEDS: FUROSEMIDE 20 MG TAB PO SCH (09:53)
[2020-03-14] MEDS: D5W/SOD CHL 0.45%/KCL 20MEQ 1,000 ML IV SCH ×2 (09:54→17:30)
--- NOTE | 2020-03-14 10:06 | NUR ---
Received phone call from Dr. Parkinson Patient's status provided to . verbalized understanding. Orders received and read back to verify.
--- NOTE | 2020-03-14 10:08 | NUR ---
Called Dr. Vargas per request of Dr. Parkinson Updated Dr. Varags on patient's N/V and abdominal discomfort. verbalized understanding. Order received and read back to verify.
--- NOTE | 2020-03-14 11:15 | NUR ---
Called Dr. Vargas to inform MD of KUB results Voicemail left.
--- NOTE | 2020-03-14 11:37 | NUR ---
Patient's daughter called for update Password obtained. Update provided.
--- NOTE | 2020-03-14 12:36 | NUR ---
was at bedside - Dr. Parkinson This Rn was at bedside. Orders received and read back to verify.
--- NOTE | 2020-03-14 12:45 | NUR ---
Paged Dr. Dooley per request of Dr. Parkinson POC to be discussed with the surgeon prior to placement of NGT per Dr. Parkinson.
--- NOTE | 2020-03-14 13:05 | NUR ---
Updated Dr. Dooley RE: KUB results and patient's status. Orders received and read back to verify.
--- NOTE | 2020-03-14 13:56 | NUR ---
Paged Dr. Dooley per request of Dr. Parkinson To notify MD of bradycardia.
--- NOTE | 2020-03-14 14:03 | NUR ---
Spoke with Dr. Vargas & updated MD on KUB results. MD verbalized understanding. Continue to monitor and follow orders of Dr. Dooley and Dr. Parkinson.
--- NOTE | 2020-03-14 14:10 | NUR ---
at bedside - Dr. Garnett
--- NOTE | 2020-03-14 15:00 | NUR ---
RE: NGT Patient anxious regarding inserting of NGT. Allowed patient time to talk and express her feelings. Patient requesting to speak with daughter prior to insertion of NGT.
[2020-03-14] MEDS: MORPHINE SULF INJ 2 MG/ML SYRINGE 1ML IV PRN (15:27)
--- NOTE | 2020-03-14 15:47 | NUR ---
NGT inserted per MD order NGT inserted with clean technique into the right nare. Measurement at 53 cm. Patient tolerated okay. Patient premedicated with PRN Morphine per patient's request. Patient medicated with PRN anti-nausea medication due to nausea. Respirations even and unlabored, no distress noted. Bed returned to lowest locked position with call light within reach.
--- NOTE | 2020-03-14 15:51 | NUR ---
Portable x-ray at bedside
--- NOTE | 2020-03-14 16:39 | NUR ---
Nutrition Follow-up Notes Wt.: 56.0 kg Pt was awake when rounded this morning. Pt noted she is with N/V and abdominal pain, with SBO slowly resolving. pt now initiated on full liq diet with negligible appetite aeb ave 17% PO intake over two days. Will continue to closely monitor pertinent labs, PO intake and skin status prn. Will followup in 2-3 days Est Energy needs: 9359-1329 kcals (20-23 kcal/kgBW), Est Protein needs: 54-60 gms/day (1.0-1.1 gm/kgBW). Will continue to monitor and reassess prn. Labs: GLUC 121 H, ALB 2.4 L Skin: Damon scale 15 mod risk, no wounds. Please refer to wound assessment report for full details. GI: Pt had 1 BM on 03/12 per car bracer. PES: Altered nutrition related lab values r/t current medical condition aeb elev RFTs, low GFR, hyperglycemia, hypoalbuminemia Increased nutrient needs r/t low PO aeb pt`s npo Will continue to monitor PO intake, skin status, pertinent labs and weight trend. F/u in 2-3 days. Rec.: 1.) Gradually advance pt to oral diet when medically feasible and as tolerated . 2) Continue current plan of care
--- NOTE | 2020-03-14 16:47 | NUR ---
Attempted to contact radiology RE: CXR results No answer.
--- NOTE | 2020-03-14 16:55 | NUR ---
IV started 20g IV started to the LFA with clean technique. IV secured and IV education provided. Patient verbalized understanding.
[2020-03-14 17:00] VITALS: BP 119/50
--- NOTE | 2020-03-14 17:15 | NUR ---
Called radiology RE: CXR result Spoke with Charles x-ray tech.
--- NOTE | 2020-03-14 17:26 | NUR ---
Orders received from Dr. Garnett Orders received and read back to verify.
--- NOTE | 2020-03-14 17:41 | NUR ---
Called pharmacy RE: Dobutamine order Medication to be sent to the unit in the next 15 minutes per pharmacy.
--- NOTE | 2020-03-14 17:45 | NUR ---
NGT placed to LIS Drained yellow liquid. NGT secured to nose.
--- NOTE | 2020-03-14 17:57 | NUR ---
Called patient's daughter, Kimberly, to update on patient's status. Kimberly verbalized understanding.
[2020-03-14] MEDS: DOBUTamine 1000MCG/ML 250 ML IV SCH (18:04)
--- NOTE | 2020-03-14 18:53 | NUR ---
Closing note Patient resting in bed with even and unlabored respirations, no distress noted. NGT to LIS per MD order; draining yellow liquid. Patient able to turn self independently in bed. Fall precautions in place with call light within reach.
--- NOTE | 2020-03-14 19:28 | NUR ---
Voicemail left with Dr. Garnett updating MD per MD's request MD requested to be updated an hour after Dobutamine was initiated. Voicemail left.
--- NOTE | 2020-03-14 19:30 | NUR ---
Care endorsed to KYREE Lr.
--- NOTE | 2020-03-14 19:31 | NUR ---
OPENING SHIFT NOTE Assumed care of patient who is A&O x4. Currently on RA with no s/s of distress. Denies pain a this time. NGT in right nare at 55cm, to LIS. Yellow colored drainage noted. Patient denies Abdominal pain or nausea at this time. PIV in left forearm intact and patent. Infusing Dobutamine as ordered. Continuous telemetry monitoring in place and current reading is A-flutter at 51. PIV in left hand is in tact and patent, infusing IVF as ordered. POC discussed and patient verbalizes understanding. Bed is in low locked position with beam sealer rails up x2. Call light is within reach and patient encouraged to call for assistance when needed. Will continue to monitor for changes PRN.
[2020-03-14 20:00] VITALS: BP 127/45
[2020-03-14 22:00] VITALS: BP 127/45
[2020-03-15] VITALS (24 sets, daily range): BP systolic 88–157; BP diastolic 39–72
--- NOTE | 2020-03-15 00:28 | NUR ---
TAP WATER ENEMA Patient instructed on procedure. Patient agrees and verbalizes understanding. Placed onto left side. Lubricated tubing inserted into patient's rectum. Tap water slowly instilled; patient instructed to retain the fluid if possible. Return of small yellow-brown mucous like stool with return of instilled fluid. Patient cleansed and repositioned for comfort. Tolerated procedure well.
[2020-03-15] MEDS: MORPHINE SULF INJ 2 MG/ML SYRINGE 1ML IV PRN ×3 (01:35→09:41)
[2020-03-15] MEDS: D5W/SOD CHL 0.45%/KCL 20MEQ 1,000 ML IV SCH ×3 (03:43→21:55)
--- NOTE | 2020-03-15 03:52 | NUR ---
PAIN Patient requesting pain medication for 4/10 right lower abdominal pain. Informed patient that it was too soon to receive another dose of Morphine. Patient verbalized understanding. Heat pack provided. will continue to monitor.
[2020-03-15] MEDS: hydrALAZINE HCL 20 MG/ML VL IV PRN (05:02)
--- NOTE | 2020-03-15 05:06 | NUR ---
PAIN Patient is reporting cramping pain in right lower quadrant, unrelieved by previous dose of Morphine and heat packs. Spoke with Dr. Mckeon. New orders received to change Morphine schedule to Q4. Will follow through.
[2020-03-15] MEDS: LEVOTHYROXINE SODIUM 100 MCG TAB PO SCH (06:28)
--- NOTE | 2020-03-15 06:30 | NUR ---
NGT OUTPUT 150mL of green-brown fluid out from NGT this shift.
--- NOTE | 2020-03-15 06:32 | NUR ---
Patient is anxious, yelling out in pain. Calming techniques practiced with patient. Pain medication is not due at this time. Heat pack has been applied to area of concern, however patient denies relief. NGT to LIS is patent and draining. Bowel sounds are hypoactive. Patient reports tenderness to palpation of abdomen. Dr. Mckeon has been made aware. Breathing exercises practice with patient to help reduce anxiety.
--- NOTE | 2020-03-15 07:30 | NUR ---
Opening Shift Note Assumed care of patient, who is alert and oriented x4. No S/S of distress/SOB. Patient reporting persistent abdominal pain. Will medicate per MD order. NGT to right nare at 55cm and set to LIS. Noted green fluid in canister. Bed is low, locked with 2x side rails up. Call light is within reach. Instructed on POC and to call for assist PRN, will continue to monitor for changes Q1hr and PRN.
[2020-03-15] MEDS: DOBUTamine 1000MCG/ML 250 ML IV SCH (07:56)
[2020-03-15] MEDS: ONDANSETRON HCL 4 MG/2 ML VIAL IV PRN (09:40)
[2020-03-15] MEDS: LOSARTAN POTASSIUM 50 MG TAB PO SCH (10:00)
[2020-03-15] MEDS: SPIRONOLACTONE 25 MG TAB PO SCH (10:00)
[2020-03-15] MEDS: ASPirin-EC 81 mg tab PO SCH (10:00)
[2020-03-15] MEDS: FUROSEMIDE 20 MG TAB PO SCH (10:00)
[2020-03-15] MEDS: amLODIPine BESYLATE 5 MG TAB PO SCH (10:00)
--- NOTE | 2020-03-15 11:39 | NUR ---
Spoke with Dr. Dooley Updated MD on patients status and read results of abd xray. Per MD he will be doing surgery later today or tomorrow. Will update family.
--- NOTE | 2020-03-15 12:20 | NUR ---
Spoke with Dr. Zelaya Updated MD on patients status. This nurse let him know that per Dr. Dooley surgery will be later on today or possibly tomorrow. Md Zelaya requests that this nurse get in contact with Dr. Dooley and ask if surgery can be done today. This nurse put a page out for Dr. Dooley at this time. Waiting for a call back. This nurse also updated MD on patient's pain level and received new orders at this time. See orders. Will continue to monitor.
[2020-03-15] MEDS ORDERED: MORPHINE SULFATE 4 MG/ML SYR/VIAL IV PRN (12:30)
--- NOTE | 2020-03-15 14:10 | NUR ---
Dr. Dooley at bedside
--- NOTE | 2020-03-15 14:42 | NUR ---
Updated Family Password verified; updated family and let them know that the patient will be having surgery with Dr. Dooley. Family verbalized understanding.
--- NOTE | 2020-03-15 14:48 | NUR ---
Patient taken down to pre-op Both IV's are patent and intact. Dobutamine drip is still running at this time. NGT is clamped. Respirations are even and unlabored. No distress noted upon departure.
[2020-03-15] MEDS ORDERED: ROCURONIUM 10MG/ML 10ML VIAL IV ONE ×4 (15:28→21:30)
[2020-03-15] MEDS ORDERED: fentaNYL CITRATE 100 MCG/2 ML VL ONE (15:28)
[2020-03-15] MEDS ORDERED: SUCCINYLCHOLINE CHLORIDE 20 MG/ML 10ML VIAL IV ONE (15:29)
[2020-03-15] MEDS ORDERED: PROPOFOL 10 MG/ML 20 ML IV ONE (15:38)
[2020-03-15] MEDS ORDERED: ceFAZolin 1GM VL IV ONE (15:40)
[2020-03-15] MEDS ORDERED: MIDAZOLAM HCL 1MG/1ML-2 ML VIAL ONE ×4 (15:41→18:25)
[2020-03-15] MEDS ORDERED: ceFAZolin 1GM/50ML 50 ML IV ONE (15:44)
[2020-03-15] MEDS ORDERED: METHYLENE BLUE 0.5% 5MG/ML 10ml AMP IV ONE (16:59)
[2020-03-15] MEDS ORDERED: POVIDONE IODINE 10 % TOPICAL OINT 30GM TOP ONE (18:02)
[2020-03-15] MEDS ORDERED: DOBUTamine 1000MCG/ML 250 ML IV SCH (18:15)
[2020-03-15] MEDS ORDERED: TPN PER PHARMACY 0 ML IV SCH (18:15)
--- NOTE | 2020-03-15 18:27 | NUR ---
OPEN: RECEIVED PATIENT FROM OR PATIENT BROUGHT OVER FROM OR TO ROOM 105 IN THE ICU. PATIENT PLACED ON VENT AT BEDSIDE BY Yvan BOTELLO. CURRENT VENT SETTINGS ARE AC 14, VT 480 , 50%FIO2, PEEP +5. ETT #7.0, 21 CM AT LIP. NGT TO RIGHT FLOREZ, PLACED TO LIS AT THIST JOSUE PER DR. CHADWICK'S ORDERS. GILLETTE TO GRAVITY, URINE BLUE/GREEN IN COLOR. SCD'S TO CYNTHIA LE. BEAR HUGGER PLACED ON PATIENT AT THIS TIME DUE TO CURRENT TEMP RECTALLY AT 94.3. WARMING MEASURES APPLIED. MD'S AWARE OF PATIENT'S HYPOTHERMIA. CXR AND ABG TO BE TAKEN. CURRENT V/S FOLLOWED: HR 66, A. FIB, RR 14, BP 116/39. MRSA SWAB OF NARES SENT TO LAB. PATIENT HAS PERIPHERAL IV TO LEFT WRIST AND LEFT HAND 20G AND 22G IV'S. DOBUTAMINE GTT INFUSING AT SET RATE OF 5 MCG/KG/MIN. WILL GIVE REPORT TO ONCOMING RN.
--- NOTE | 2020-03-15 19:30 | NUR ---
REPORT RECEIVED, ASSUMED CARE.
[2020-03-15 20:07] LABS: Albumin 1.3 g/dL (3.4-5.0); Anion Gap 10 (5-15); Blood Urea Nitrogen 23 mg/dL (7-18); Calcium 6.9 mg/dL (8.5-10.1); Carbon Dioxide 17 mmol/L (21-32); Chloride 107 mmol/L (98-107); Glucose 140 mg/dL (74-106); Potassium 5.3 mmol/L (3.5-5.1); Sodium 134 mmol/L (136-145)
[2020-03-15 20:11] LABS: Alanine Aminotransferase < 6 U/L (13-56); Alkaline Phosphatase 56 U/L (45-117); Aspartate Aminotransferase 10 U/L (15-37); BUN/Creatinine Ratio 15.9; Bilirubin, Total 0.4 mg/dL (0.2-1.0); GFR African American 44 mL/min; GFR Non-African American 36 mL/min; Total Protein 3.7 g/dL (6.4-8.2)
[2020-03-15] MEDS ORDERED: AMINO ACID INFUSION IN D5W 1,000 ML IV NR (20:30)
--- NOTE | 2020-03-15 20:30 | NUR ---
MD DURANT @ BEDSIDE TO ASSESS PT, GAVE UPDATE AND NEW ORDERS OBTAINED.
--- NOTE | 2020-03-15 20:40 | NUR ---
CALLED SPOKE WITH BOTH PT DAUGHTERS CLIFF AND CLAIR. OBTAINED CONSENT FOR PROCEDURE, PLACED CONSENT IN CHART FOR VIEWING.
[2020-03-15] MEDS: metroNIDAZOLE 500MG/100ML 100 ML IV SCH (21:54)
[2020-03-15] MEDS ORDERED: SODIUM BICARBONATE 8.4 % INJ 50ML VIAL IV ONE (22:15)
--- NOTE | 2020-03-15 22:15 | NUR ---
NOTIFIED MD DURANT OF CXR RESULTS, NEW ORDERS OBTAINED. PT IN NO APPARENT DISTRESS.
[2020-03-15] MEDS: MIDAZOLAM DRIP 50 mg/50mL 50 ML IV SCH (23:02)
--- NOTE | 2020-03-15 23:35 | NUR ---
CALLED MD DURANT WITH ABG RESULTS, LEFT MESSAGE.
[2020-03-15] MEDS: ACCU-CHEK COMFORT CURVE STRIP VI SCH (23:54)
[2020-03-15] MEDS: InsuLIN REG 1unit/0.01ml Soln (100units/ml) SC SCH (23:56)
[2020-03-15] MEDS: ceFAZolin 1GM/50ML 50 ML IV SCH (23:57)
[2020-03-16] VITALS (102 sets, daily range): BP systolic 83–169; BP diastolic 30–52
[2020-03-16] MEDS ORDERED: DEXTROSE (50%) 50ML SYRG IV SCH
[2020-03-16 04:31] LABS: Chloride 106 mmol/L (98-107); Potassium 5.5 mmol/L (3.5-5.1); Sodium 132 mmol/L (136-145)
[2020-03-16 04:36] LABS: Basophils # (auto) 0 10 ^3/uL (0-0.2); Basophils % (auto) 0.2 % (0.0-2.0); Eosinophils # (auto) 0 10 ^3/uL (0-0.8); Eosinophils % (auto) 0.1 % (0.0-7.0); Lymphocytes # (auto) 0.1 10 ^3/uL (0.4-5.4); Lymphocytes % (auto) 1.3 % (10.0-50.0); Mean Corpuscular Hemoglobin 26.8 pg (28.0-32.0); Mean Corpuscular Hgb Conc. 32.1 g/dL (32.0-36.0); Mean Corpuscular Volume 83.6 fL (80.0-100.0); Monocytes # (auto) 0.2 10 ^3/uL (0-1.3); Monocytes % (auto) 1.3 % (0.0-12.0); Neutrophils % (auto) 97.1 % (37.0-80.0); Nucleated Red Blood Cells % 0.1 %; Platelet Count (auto) 193 10^3/uL (140-450); Red Blood Cells 2.99 10^6/uL (4.0-5.20); Red Cell Distribution Width 16.7 % (11.8-14.3); White Blood Cell 11.4 10^3/uL (4.4-10.8)
[2020-03-16 04:48] LABS: Alanine Aminotransferase < 6 U/L (13-56); Albumin 1.1 g/dL (3.4-5.0); Alkaline Phosphatase 51 U/L (45-117); Anion Gap 6 (5-15); Aspartate Aminotransferase 12 U/L (15-37); BUN/Creatinine Ratio 16.8; Bilirubin, Total 0.5 mg/dL (0.2-1.0); Blood Urea Nitrogen 28 mg/dL (7-18); Calcium 6.9 mg/dL (8.5-10.1); Carbon Dioxide 20 mmol/L (21-32); GFR African American 37 mL/min; GFR Non-African American 31 mL/min; Glucose 195 mg/dL (74-106); Magnesium 1.4 mg/dL (1.6-2.6); Phosphorus 2.7 mg/dL (2.5-4.90); Pre Albumin 4.2 mg/dL (20.0-40.0); Total Protein 3.3 g/dL (6.4-8.2)
[2020-03-16] MEDS: ceFAZolin 1GM/50ML 50 ML IV SCH (05:49)
[2020-03-16] MEDS: LEVOTHYROXINE SODIUM 100 MCG TAB PO SCH (05:50)
[2020-03-16] MEDS: ACCU-CHEK COMFORT CURVE STRIP VI SCH ×3 (05:50→18:00)
[2020-03-16] MEDS: InsuLIN REG 1unit/0.01ml Soln (100units/ml) SC SCH ×3 (06:02→18:03)
[2020-03-16] MEDS: metroNIDAZOLE 500MG/100ML 100 ML IV SCH ×3 (06:33→22:13)
--- NOTE | 2020-03-16 06:33 | NUR ---
Respiratory note: RECEIVED PATIENT ON V11 ESPRIT VENT ORALLY INTUBATED WITH A 7.0 ETT SECURED VIA MARIUSZ AT THE 21CM MARKING AT THE LIP, AND MECHANICALLY VENTILATED WITH THE CHARTED SETTINGS. SPO2 95%, LUNG SOUNDS CLEAR T/O, NO SECRETIONS WHEN SUCTIONED. SKIN IS WARM/DRY TO THE TOUCH AND IS INTACT NEAR MARIUSZ SITE. THERE IS A NGT PLACED IN THE RIGHT NARE AND SECURED TO THE NOSE, A TRIPLE LUMEN CENTRAL LINE IS PLACED IN THE LEFT IJ. THERE IS AN ABDOMINAL BINDER ON COVERING SURGICAL SITE, AND TWO BARBIE DRAINS WHICH ARE DRAINING WELL. NO NEW AM CXR TO ASSESS. PATIENT IS UNRESPONSIVE TO BOTH VERBAL/TACTILE STIMULI, AND IS SEDATED ON A VERSED DRIP. SHE IS RESTING COMFORTABLY AND TOLERATING VENT WELL, NO CHANGES MADE. VENT PLUGGED INTO RED OUTLET AND ALL ALARMS ARE SET AND AUDIBLE. WILL CONTINUE TO ASSESS PATIENT WELL VENTILATOR FUNCTION.
--- NOTE | 2020-03-16 07:30 | NUR ---
IVF WITH POTASSIUM SHUT OFF AT THIS TIME DUE TO POTASSIUM LEVEL 5.5. NO ECTOPY ASSESSED.
--- NOTE | 2020-03-16 07:54 | NUR ---
SPOKE WITH DR LARKIN AFTER PAGING HIM, AWARE OF POTASSIUM LEVEL, ORDER TO REPEAT AND CALL BACK.
--- NOTE | 2020-03-16 07:54 | NUR ---
SPOKE WITH DTR CLIFF UPDATED ON PLAN OF CARE
[2020-03-16] MEDS: HYDROmorphone HCL 2 MG/ML VL IV PRN (08:34)
[2020-03-16] MEDS ORDERED: NOREPINEPHRINE 8 MG/250ML KIT 250 ML IV ONE (08:48)
[2020-03-16] MEDS: D5W/SOD CHL 0.45%/KCL 20MEQ 1,000 ML IV SCH (08:52)
[2020-03-16] MEDS: NOREPINEPHRINE 8 MG/250ML KIT 250 ML IV SCH ×2 (08:56→23:01)
--- NOTE | 2020-03-16 09:00 | NUR ---
DR CHADWICK AT BEDSIDE, NEW ORDERS RECEIVED OK FOR DAILY DSG CHANGES TO MEDIAL ABDOMINAL SURGICAL INCISION
[2020-03-16] MEDS: DOPamine 1600MCG/ML D5W 250 ML IV SCH (09:11)
[2020-03-16] MEDS ORDERED: ALBUMIN 25% 50 ML IV ONE ×2 (09:45→16:00)
--- NOTE | 2020-03-16 09:46 | NUR ---
Respiratory note: VENT CHANGES MADE. RR DECREASED TO 16, PEEP INCREASED TO 5, AND VT DECREASED TO [address] BAKER'S VERBAL ORDER. KYREE KNIGHT AWARE OF CHANGES MADE.
[2020-03-16] MEDS ORDERED: FUROSEMIDE 20 MG/2 ML VIAL IV SCH (10:00)
[2020-03-16] MEDS ORDERED: FUROSEMIDE 20 MG/2 ML VIAL IV ONE (10:30)
[2020-03-16] MEDS: MAGNESIUM SULFATE 1GM/100ML 100 ML IV SCH ×4 (11:00→13:32)
[2020-03-16] MEDS: PANTOPRAZOLE 40 MG/10 ML VIAL INJ IV SCH (11:02)
[2020-03-16] MEDS: PIPERACILLIN-TAZOB 2.25GM 50 ML IV SCH ×2 (11:24→20:09)
[2020-03-16] MEDS: MIDAZOLAM DRIP 50 mg/50mL 50 ML IV SCH ×2 (11:28→19:34)
--- NOTE | 2020-03-16 11:35 | NUR ---
Nutrition Follow-up Notes Wt.: 68.1 kg Pt`s intubated sedated post sx yesterday with no family by bedside. pt is currently NPO with possible initiating TPN tonight. Est Energy needs: 6671-3863 kcals (20-23 kcal/kgBW), Est Protein needs: 54-60 gms/day (1.0-1.1 gm/kgBW). Will continue to monitor and reassess prn. Labs: ALB 1.1 L, PREALB 4.2 L,CA 6.9 L, GLU 195 H, BUN 28 H, CREAT 1.67 H Skin: Damon scale 16 mod risk, incision at site of sx. Please refer to wound assessment report for full details. GI: Pt had 1 BM on 03/12 with 150 ml gastric drainage today per locomotive oiler. PES: Altered nutrition related lab values r/t current medical condition aeb elev RFTs, low GFR, hyperglycemia, hypoalbuminemia Increased nutrient needs r/t low PO aeb pt`s npo Will continue to monitor NPO status, skin status, pertinent labs and weight trend. F/u in 2-3 days. Rec.: 1.) Advance PN support to meet > 75% of needs. 2) Gradually advance pt to oral diet when medically feasible and as tolerated . 2) Continue current plan of care
[2020-03-16] MEDS: fentaNYL Drip 2500mCg/250mlNS 250 ML IV SCH (14:00)
--- NOTE | 2020-03-16 14:29 | NUR ---
assessment Patient is 84 year old female in ICU on a vent. Per patients daughter Kimberly prior to admission patient lived home alone and was independent. Patient has a fww for home use. Patient uses [facility] for PCP. Per Kimberly she is moving in with patient on discharge. Kimberly informed me patient will need a shower chair and home health nursing on discharge. I informed Kimberly we would work on patients post discharge needs after extubation and prior to discharge. Kimberly verbalized understanding. Addendum: 03/16/20 at 1433 by Cynthia BURNETT Amended: Links added.
[2020-03-16 14:47] LABS: Hematocrit 29.6 % (36.0-46.0); Hemoglobin 9.6 g/dL (12.2-16.2)
--- NOTE | 2020-03-16 15:23 | NUR ---
PAGED DR Julio BAKER REGARDING MOST RECENT ABG RESULTS, MOST RECENT POTASSIUM AND TO MAKE AWARE OF ONLY 200 ML OUTPUT SINCE LASIX GIVEN AND POSSIBLE NEED FOR MAINTENANCE FLUIDS.
[2020-03-16] MEDS ORDERED: D5W/SOD CHL 0.45% 1,000 ML IV SCH (16:00)
--- NOTE | 2020-03-16 16:00 | NUR ---
PAGED DR CHADWICK REGARDING 200 ML URINE OUTPUT SINCE LASIX GIVEN, GAVE NEW ORDER FOR D5 1/2 NS AT 125ML/HR
--- NOTE | 2020-03-16 16:14 | NUR ---
SPOKE WITH DR Julio BAKER REGARDING ABG RESULTS, LAST POTASSIUM LEVEL GAVE NO ORDERS.
--- NOTE | 2020-03-16 18:00 | NUR ---
SPOKE WITH DR JA PERALTA LAST POTASSIUM LEVEL 5.3. NEW ORDER FOR NS AT 125 ML/HR AND MAG LEVEL IN AM
[2020-03-16] MEDS: SODIUM CHLORIDE 0.9% 1,000 ML IV SCH (18:25)
--- NOTE | 2020-03-16 19:00 | NUR ---
Opening shift note: Primary RN Canelo received report on patient. Patient intubated ETT 7.0/21@LL, VENT settings: AC 16, TV 450, FIO2 40, PEEP 5, O2 Sat 98%, bilateral lungs clear. Central line left IJ 3 lumen, infusing Versed @ 10, Fentanyl @ 75, Levo @ 8, Dopamine @ 2 and NS @ 125mL/hr. Chen catheter draining via gravity with yellow urine. Rectal probe in place. Safety precautions in place. Will continue to monitor.
[2020-03-16] MEDS ORDERED: TPN PER PHARMACY IV NR ×8 (20:00)
[2020-03-17] VITALS (92 sets, daily range): BP systolic 93–165; BP diastolic 28–54
[2020-03-17] MEDS: ACCU-CHEK COMFORT CURVE STRIP VI SCH ×5 (00:18→23:44)
[2020-03-17] MEDS: InsuLIN REG 1unit/0.01ml Soln (100units/ml) SC SCH ×5 (00:19→23:44)
[2020-03-17] MEDS: SODIUM CHLORIDE 0.9% 1,000 ML IV SCH ×3 (02:15→17:23)
[2020-03-17] MEDS: PIPERACILLIN-TAZOB 2.25GM 50 ML IV SCH ×3 (04:00→18:38)
[2020-03-17 04:31] LABS: Chloride 103 mmol/L (98-107); Potassium 4.1 mmol/L (3.5-5.1); Sodium 131 mmol/L (136-145)
[2020-03-17 04:37] LABS: Alanine Aminotransferase < 6 U/L (13-56); Albumin 1.8 g/dL (3.4-5.0); Alkaline Phosphatase 80 U/L (45-117); Anion Gap 6 (5-15); Aspartate Aminotransferase 12 U/L (15-37); BUN/Creatinine Ratio 24.1; Bilirubin, Total 2.2 mg/dL (0.2-1.0); Blood Urea Nitrogen 34 mg/dL (7-18); Calcium 6.8 mg/dL (8.5-10.1); Carbon Dioxide 22 mmol/L (21-32); GFR African American 45 mL/min; GFR Non-African American 38 mL/min; Glucose 166 mg/dL (74-106); Magnesium 2.5 mg/dL (1.6-2.6); Phosphorus 3.1 mg/dL (2.5-4.90); Total Protein 4.5 g/dL (6.4-8.2)
[2020-03-17 04:43] LABS: Hematocrit 27.7 % (36.0-46.0); Hemoglobin 9.2 g/dL (12.2-16.2); Mean Corpuscular Hemoglobin 27.7 pg (28.0-32.0); Mean Corpuscular Hgb Conc. 33.1 g/dL (32.0-36.0); Mean Corpuscular Volume 83.7 fL (80.0-100.0); Platelet Count (auto) 176 10^3/uL (140-450); Red Blood Cells 3.32 10^6/uL (4.0-5.20); Red Cell Distribution Width 17.1 % (11.8-14.3); White Blood Cell 22.9 10^3/uL (4.4-10.8)
[2020-03-17 04:45] LABS: Basophils % (manual) 0 (0.0-2.0); Blast Cells 0; Eosinophils % (manual) 0 (0-7); Metamyelocytes % 0; Myelocytes % 0; Promyelocytes % 0; Reactive Lymphocytes 0
[2020-03-17] MEDS: DOPamine 1600MCG/ML D5W 250 ML IV SCH ×2 (05:26→13:49)
[2020-03-17] MEDS: MIDAZOLAM DRIP 50 mg/50mL 50 ML IV SCH ×3 (05:27→19:18)
[2020-03-17] MEDS: metroNIDAZOLE 500MG/100ML 100 ML IV SCH (05:36)
[2020-03-17 06:25] LABS: Band Neutrophils % (manual) 36; Lymphocytes % (manual) 1 (10.0-50.0); Monocytes % (manual) 1 (0-12)
--- NOTE | 2020-03-17 07:30 | NUR ---
AM ASSESSMENT COMPLETED PT REMAINS INTUBATED SEDATED . PT ON DOPAMINE GTT FOR BRADYCARDIA CURRENTLY AT 11 MCG/KG/MIN, LEVOPHED BEING TITRATED OFF. PT S/P SMALL BOWEL OBSTRUCTION REPAIR. CURRENTLY ON TPN FOR NUTRITION INFUSING VIA TLC CENTRAL LINE. ORAL CARE RENDERED. SUCTIONED MODERATE AMOUNTS OF THICK PETIT SECRETIONS THROUGH ETT. FC DRAINING ADEQUATE AMOUNTS AF CLEAR YELLOW URINE. MONITOR ALARMS VERIFIED.
--- NOTE | 2020-03-17 08:14 | NUR ---
PAGED DR. Julio ROTHMAN , I LEFT A MESSAGE WITH HIS ANSWERING SERVICES TO CALL BACK FOR ABG RESULTS.
[2020-03-17] MEDS: PANTOPRAZOLE 40 MG/10 ML VIAL INJ IV SCH (09:21)
[2020-03-17] MEDS: LEVOTHYROXINE SODIUM 100 MCG/5 ML INJ IV SCH (09:24)
--- NOTE | 2020-03-17 09:24 | NUR ---
DR. Julio SMITH IN TO SEE PT. ALL CURRENT GTTS DISCUSSED WITH . HE'LL REVIEW PT'S CHEST X-RAY AND ABG. MD AWARE THAT PT IS ON SYNTHROID AND WANTS TO RECHECK LABS FOR THYROID. AWARE THAT DR. MENDOZA IS CONTEMPLATING A PACEMAKER. PT CURRENTLY ON DOPAMINE FOR BRADYCARDIA.
--- NOTE | 2020-03-17 09:56 | NUR ---
SEDATION VACATION NOT DONE. PT BRADYCARDIC. ABG UNSTABLE. VENTILATOR SETTINGS ADJUSTED. PT'S SEDATION LEVEL ADEQUATE. DR. SMITH AWARE AND PT'S PRIMARY MD AWARE. DR. GIMENEZ JUST CALLED TO GET AN UPDATE ON PT'S CONDITION. HE WANTS ME TO CALL DR. MENDOZA TO ASK ABOUT THE PERMANENT PACEMAKER.
--- NOTE | 2020-03-17 10:00 | NUR ---
Respiratory note: ROUTINE VENT CHECK DONE. VENT CHANGES DONE PER RATE INCREASED TO 18 AND VT INCREASED TO 480. ABG TO BE OBTAINED IN 6 HOURS. PT TOLERATING CHANGE WELL. RN NOTIFY OF CHANGES.
--- NOTE | 2020-03-17 10:25 | NUR ---
I DISCUSSED PT'S CONDITION WITH DR. MENDOZA. I HAD JUST PREVIOUSLY DISCUSSED PT'S CONDITION WITH PT'S DAUGHTER. PER DAUGHTER PT'S HR RUNS IN THE LOW 40'S TO 50'S AND PT IS HYPERTENSIVE. PT WAS FEELING SYMPTOMATIC JUST BEFORE BEING ADMITTED TO THE HOSPITAL DUE TO DIURETICS & HTN MEDS. AFTER RELATING THIS INFORMATION TO MD. MD STATES HE DOESN'T BELIEVE PT NEEDS A PACEMAKER. REVIEWED PT'S WBC AND ATB'S NEW ATB'S RX. PT IS SEPTIC. NEW ORDERS RECEIVED. RELATED THEM TO PHARMACY. PHARMACIST STATES PT HAS PNA PER CHEST X-RAY. PT WILL BE STARTED ON ZYVOX.
[2020-03-17] MEDS ORDERED: PIPERACILLIN-TAZOB 2.25GM 50 ML IV SCH (10:30)
[2020-03-17] MEDS ORDERED: NITROGLYCERIN 0.4 MG SL TAB SL PRN (11:00)
[2020-03-17] MEDS ORDERED: MORPHINE SULF INJ 2 MG/ML SYRINGE 1ML IV PRN (11:00)
[2020-03-17] MEDS: LINEZOLID 600MG/300ML 300 ML IV SCH ×2 (11:17→23:00)
--- NOTE | 2020-03-17 12:28 | NUR ---
WOUND CARE NOTE: Wound care in to see patient for skin assessment due to low Damon score of 12 and intubation status, putting patient to high risk for skin breakdown. Patient is 84 years old female with admitting diagnosis of SBO. Patient is resting in ICU bed in Rm. 105. Patient is intubated, sedated and mechanically ventilated. Patient appears to be in pain using Pelaez Hernandez Faces Pain Scale. Skin/wound assessment done with the assistance of patient's nurse,KYREE Rueda. No wound noted other than anterior medial abdominal incision with C/D/I dressing, intact BARBIE drain with abdominal binder. Patient is two days s/p Exploratory Laparotomy Resection of Perforated Bowel by Dr. Dooley. No pressure injury noted. Staff initiated skin protection measures with BID/PRN cleaning and application of Barrier cream to sacral, buttocks as preventative. Patient tolerated well, repositioned for comfort facing her Lt. side, redistributed pressure points with pillows. KYREE Rueda at bedside. RECOMMENDATION: Nursing to continue with BID/PRN cleaning and application of Barrier cream to sacral, buttock as preventative, Dietary consult, frequent turning and repositioning as condition permits, redistribute pressure points with pillows, elevate heels on pillows, continue monitoring by wound care while patient is mechanically ventilated. Addendum: 03/17/20 at 1658 by Jennifer Solis RN Amended: Links added.
--- NOTE | 2020-03-17 16:31 | NUR ---
NOTIFIED DR. Julio SMITH OF ABG RESULTS HE REQUESTED. HAPPY WITH IMPROVEMENTS.
--- NOTE | 2020-03-17 19:00 | NUR ---
Opening shift note: Primary RN Canelo received report on patient. Patient intubated ETT 7.0/21@LL, VENT settings: AC 18, TV 480, FIO2 40, PEEP 5, O2 Sat 97%, bilateral lungs clear. Central line left IJ 3 lumen, infusing Versed @ 6, Fentanyl @ 50, Dopamine @ 11 and NS @ 125mL/hr and TPN @ 44mL/hr. Chen catheter draining via gravity with yellow urine. Rectal probe in place. Safety precautions in place. Will continue to monitor.
[2020-03-17] MEDS: fentaNYL Drip 2500mCg/250mlNS 250 ML IV SCH (19:26)
[2020-03-17] MEDS ORDERED: TPN PER PHARMACY IV NR ×9 (20:00)
--- NOTE | 2020-03-17 20:10 | NUR ---
BARBIE OUTPUT RT BARBIE NO OUTPUT LT BARBIE 100 ML OF SEROSANGUINEOUS OUTPUT.
[2020-03-18] VITALS (103 sets, daily range): BP systolic 65–174; BP diastolic 25–59
[2020-03-18] MEDS: PIPERACILLIN-TAZOB 2.25GM 50 ML IV SCH ×2 (01:00→06:37)
[2020-03-18] MEDS: SODIUM CHLORIDE 0.9% 1,000 ML IV SCH ×3 (02:15→18:15)
--- NOTE | 2020-03-18 02:45 | NUR ---
IV D/C: IV to left hand discontinued d/t IV site being in place past 3 days. Catheter fully intact. Patient tolerated intervention well.
[2020-03-18 04:21] LABS: Basophils # (auto) 0 10 ^3/uL (0-0.2); Basophils % (auto) 0.3 % (0.0-2.0); Eosinophils # (auto) 0.1 10 ^3/uL (0-0.8); Eosinophils % (auto) 0.6 % (0.0-7.0); Hemoglobin 9.5 g/dL (12.2-16.2); Lymphocytes # (auto) 0.2 10 ^3/uL (0.4-5.4); Lymphocytes % (auto) 1.2 % (10.0-50.0); Mean Corpuscular Hemoglobin 27.7 pg (28.0-32.0); Mean Corpuscular Hgb Conc. 32.8 g/dL (32.0-36.0); Mean Corpuscular Volume 84.6 fL (80.0-100.0); Monocytes # (auto) 0.2 10 ^3/uL (0-1.3); Monocytes % (auto) 1.2 % (0.0-12.0); Neutrophils # (auto) 14.4 10 ^3/uL (1.6-8.6); Neutrophils % (auto) 96.7 % (37.0-80.0); Platelet Count (auto) 126 10^3/uL (140-450); Red Blood Cells 3.43 10^6/uL (4.0-5.20); Red Cell Distribution Width 17.3 % (11.8-14.3); White Blood Cell 14.9 10^3/uL (4.4-10.8)
[2020-03-18 04:39] LABS: Albumin 1.4 g/dL (3.4-5.0); Calcium 7.1 mg/dL (8.5-10.1)
[2020-03-18 04:43] LABS: BUN/Creatinine Ratio 26.4; Bilirubin, Total 2.1 mg/dL (0.2-1.0); Phosphorus 2.8 mg/dL (2.5-4.90); Total Protein 4.4 g/dL (6.4-8.2)
[2020-03-18 05:00] LABS: Potassium 2.8 mmol/L (3.5-5.1)
--- NOTE | 2020-03-18 05:06 | NUR ---
Critical lab: RN received call from lab regarding patient having a low potassium of 2.8. RN paged primary MD and spoke with occupational therapy specialist doctor "Yo". New orders received and verified.
[2020-03-18] MEDS: POTASSIUM CHL 20MEQ/100ML 100 ML IV SCH ×2 (05:15→07:45)
[2020-03-18] MEDS: ACCU-CHEK COMFORT CURVE STRIP VI SCH ×3 (05:37→17:44)
[2020-03-18] MEDS: InsuLIN REG 1unit/0.01ml Soln (100units/ml) SC SCH ×3 (05:39→17:44)
[2020-03-18] MEDS: DOPamine 1600MCG/ML D5W 250 ML IV SCH ×2 (06:00→17:36)
[2020-03-18] MEDS: MIDAZOLAM DRIP 50 mg/50mL 50 ML IV SCH ×2 (06:00→19:35)
--- NOTE | 2020-03-18 06:06 | NUR ---
Outputs: Urine: 1,600mL NGT: 100mL BARBIE Left: 50mL BARBIE Right: 20mL
[2020-03-18] MEDS ORDERED: VANCOMYCIN PER PHARMACY 0 MG IV SCH (08:00)
[2020-03-18] MEDS: NOREPINEPHRINE 8 MG/250ML KIT 250 ML IV SCH (09:00)
--- NOTE | 2020-03-18 09:15 | NUR ---
DR HINES AT BEDSIDE DISCUSSED PATIENTS STATUS AND PLAN OF CARE. NEW ORDERS RECEIVED
--- NOTE | 2020-03-18 09:22 | NUR ---
DR BAKER AT BEDSIDE DISCUSSED PATIENTS STATUS, NEW VENT ORDERS PLACED AND NEW ORDERS RECEIVED
--- NOTE | 2020-03-18 09:30 | NUR ---
SEDATION VACATION- WEANING SEDATION PATIENT TOLERATES PER PULMONARY ORDERED. Addendum: 03/18/20 at 0934 by Laurie Terrazas RN Amended: Links added.
[2020-03-18] MEDS: fentaNYL Drip 2500mCg/250mlNS 250 ML IV SCH ×2 (09:53→22:18)
[2020-03-18] MEDS ORDERED: LINEZOLID 600MG/300ML 300 ML IV SCH (10:00)
--- NOTE | 2020-03-18 10:10 | NUR ---
Respiratory note: VENT CHANGES DONE PER ORDERS. SIMV 14,480, +5,10,30% ABG TO BE OBTAINED IN 6 HOURS. RN AWARE OF CHANGES. PT TOLERATING VENT CHANGES WELL. WILL CONTINUE TO MONITOR PT.
--- NOTE | 2020-03-18 10:40 | NUR ---
PATIENTS DAUGHTER CLAIR CALLED FOR UPDATE PROVIDED PASSWORD, UPDATED ON CURRENT STATUS AND PLAN OF CARE.
[2020-03-18] MEDS: PANTOPRAZOLE 40 MG/10 ML VIAL INJ IV SCH (10:48)
[2020-03-18] MEDS: VANCOMYCIN 1GM/250ML 250 ML IV SCH (10:48)
[2020-03-18] MEDS: LEVOTHYROXINE SODIUM 100 MCG/5 ML INJ IV SCH (10:49)
--- NOTE | 2020-03-18 11:50 | NUR ---
DR CHADWICK AT BEDSIDE DISCUSSED PATIENTS STATUS. OK FROM SURGICAL STANDPOINT FOR CPAP.
[2020-03-18] MEDS: PIPERACILLIN-TAZOB 3.375GM 100 ML IV SCH ×2 (12:18→17:44)
--- NOTE | 2020-03-18 14:48 | NUR ---
Nutrition Follow-up Notes Wt.: 71.2 kg Pt`s intubated sedated with TPN running at 52 mLs/hr which provides 1290 kcal, 60g, 1050 NCP. This provides 100% of pt energy needs and protein needs. Est Energy needs: 2907-9644 kcals (20-23 kcal/kgBW), Est Protein needs: 54-60 gms/day (1.0-1.1 gm/kgBW). Will continue to monitor and reassess prn. Labs: ALB 1.4 L, CA 7.1 L, GLU 147 H, BUN 24 H Skin: Damon scale 12 high risk, incision at site of sx. Please refer to wound assessment report for full details. GI: Pt had 1 BM on 03/12 with 375 ml gastric drainage 03/17 per pharmacist in charge. PES: Partially resolved: Altered nutrition related lab values r/t current medical condition aeb elev RFTs, low GFR, hyperglycemia, hypoalbuminemia Increased nutrient needs r/t low PO aeb pt`s npo Will continue to monitor NPO status, skin status, pertinent labs and weight trend. F/u in 2-3 days. Rec.: 1.) Continue PN support to meet > 75% of needs. 2) Gradually advance pt to oral diet when medically feasible and as tolerated . 2) Continue current plan of care
--- NOTE | 2020-03-18 19:00 | NUR ---
Opening shift note: Primary RN Canelo received report on patient. Patient intubated ETT 7.0/21@LL, VENT settings: AC 14, TV 480, FIO2 30, PEEP 5, O2 Sat 97%, bilateral lungs clear. Central line left IJ 3 lumen, infusing Versed @ 2, Fentanyl @ 100, Dopamine @ 8 and NS @ 125mL/hr and TPN @ 44mL/hr. Chen catheter draining via gravity with yellow urine. Rectal probe in place. Safety precautions in place. Will continue to monitor.
[2020-03-18] MEDS ORDERED: TPN PER PHARMACY IV NR ×11 (20:00)
[2020-03-19] VITALS (96 sets, daily range): BP systolic 106–149; BP diastolic 29–52
--- NOTE | 2020-03-19 | NUR ---
BARBIE DRAINS: BARBIE#1 -10ML SANGUINEOUS DRAINAGE. BARBIE#2 -30ML SANGUINEOUS DRAINAGE.
[2020-03-19] MEDS: ACCU-CHEK COMFORT CURVE STRIP VI SCH ×4 (00:14→18:03)
[2020-03-19] MEDS: InsuLIN REG 1unit/0.01ml Soln (100units/ml) SC SCH ×4 (00:15→18:00)
--- NOTE | 2020-03-19 01:00 | NUR ---
Care endorsed to Sera ADORNO.
--- NOTE | 2020-03-19 02:00 | NUR ---
Respiratory note: HR NOTED AT 41BPM, RN AT BEDSIDE.
--- NOTE | 2020-03-19 02:00 | NUR ---
PATIENT ADMITTED WITH ABDOMINAL PAIN, NAUSEA-VOMITING,DIARRHEA. MD DIAGNOSIS: RECURRENT SBO. IMAGING: ILIAC ARTERYY OCCLUSION. ON 03/15/2020, DR CHADWICK TOOK THE PATIENT TO OR AND PERFORMED AN EXPLORATORY LAP AND REPAIRED A BOWEL PERFORATION AND BLADDER WOUND. PATIENT IS COMPLETELY SEDATED. NO COUGH OR GAG. NO BLINK. NOT WITHDRAWING EXTREMITIES TO PAINFUL STIMULI. DRY MOUTH. ORAL CARE DONE. SUCTIONED FROM THE ETT A SMALL AMOUNT OF CREAMY SECRETIONS. IN ATRIAL FIB, RATE OF 40-43. ON DOPAMINE DRIP FOR HEART RATE BRADYCARDIA. RESP: ON IMV OF 14, RR 15, TV 480, FIO2 OF 30%, AND PEEP OF 5. PRESSURE SUPPORT OF 10. PLAN FOR CPAP IN AM. DECREASING THE FENTANYL. INCREASED THE DOPAMINE . HAVE A REASONABLE BLOOD PRESSURE. HAS A RIGHT NARE NGT TO LCWS. MODERATE AMOUNT OF CLEAR LIQUID WITH TINY BROWN FLECKS IN SOLUTION. IRRIGATED AND ASPIRATED FROM THE NGT. PLACEMENT IS GOOD. ABDOMEN: INCISIONAL DRESSING IS CLEAN AND DRY. HAS A # 1 AND #2 BARBIE DRAIN. BOTH ARE DRAINING SEROUS FLUID. ABDOMINAL BINDER IS ON. IV ACCESS: LEFT IJ TRIPLE LUMEN CATHETER. MAINTENANCE FLUID RATE WAS DECREASED FROM 125CC TO 50CC/HR. TPN IS AT 52CC/HR. DOPAMINE IS AT 8 MCG/KG/MIN AND FENTANYL IS AT 75 MCG. ALL CULTURES NEGATIVE. WBC IS 14.9 . RECTAL TEMP PROBE IS READING 99. BILATERAL MITTENS ON. SCDS ARE ON. GILLETTE IN PLACE DRAINING CLEAR YELLOW LIQUID TO DOWN DRAIN BAG.
[2020-03-19] MEDS: DOPamine 1600MCG/ML D5W 250 ML IV SCH ×2 (02:31→13:00)
[2020-03-19] MEDS: SODIUM CHLORIDE 0.9% 1,000 ML IV SCH ×2 (02:36→11:13)
--- NOTE | 2020-03-19 03:17 | NUR ---
AM LABS DRAWN FROM CENTRAL LINE
[2020-03-19 03:55] LABS: Basophils # (auto) 0 10 ^3/uL (0-0.2); Eosinophils # (auto) 0.1 10 ^3/uL (0-0.8); Hemoglobin 8.1 g/dL (12.2-16.2); Monocytes # (auto) 0.4 10 ^3/uL (0-1.3); Red Cell Distribution Width 17.4 % (11.8-14.3)
[2020-03-19 03:58] LABS: Basophils % (auto) 0.2 % (0.0-2.0); Hematocrit 24.7 % (36.0-46.0); Lymphocytes # (auto) 0.4 10 ^3/uL (0.4-5.4); Mean Corpuscular Hemoglobin 27.9 pg (28.0-32.0); Mean Corpuscular Hgb Conc. 32.8 g/dL (32.0-36.0); Mean Corpuscular Volume 85.1 fL (80.0-100.0); Monocytes % (auto) 3.5 % (0.0-12.0); Neutrophils # (auto) 11.1 10 ^3/uL (1.6-8.6); Neutrophils % (auto) 92.3 % (37.0-80.0); Platelet Count (auto) 96 10^3/uL (140-450)
--- NOTE | 2020-03-19 04:00 | NUR ---
CHG BATH. ABDOMINAL DRESSING CHANGE. MIDLINE INCISION WELL APPROXIMATED. 2 BARBIE, ONE RIGHT, ONE LEFT. BARBIE ON RIGHT DRAINING A MURKY SAVANNA COLOR. BARBIE ON LEFT DRAINING AN SAVANNA LIQUID. AREA CLEANED WITH CHLOROPREP AND REDRESSED. SECURED WITH TAPE. SHELBY AREA REDNESS. NO DIARRHEA. GILLETTE DRAINING A MARGINAL AMOUNT OF YELLOW LIQUID WITH SEDIMENT.
[2020-03-19 04:16] LABS: Potassium 3.3 mmol/L (3.5-5.1)
[2020-03-19 04:22] LABS: Albumin 1.1 g/dL (3.4-5.0); BUN/Creatinine Ratio 28.3; Bilirubin, Total 1.9 mg/dL (0.2-1.0); Magnesium 1.8 mg/dL (1.6-2.6); Phosphorus 2.9 mg/dL (2.5-4.90); Total Protein 3.9 g/dL (6.4-8.2)
--- NOTE | 2020-03-19 06:00 | NUR ---
BARBIE RIGHT 15CC. BARBIE LEFT 70CC.
[2020-03-19] MEDS: PIPERACILLIN-TAZOB 3.375GM 100 ML IV SCH ×4 (06:46→18:04)
--- NOTE | 2020-03-19 08:51 | NUR ---
PATIENTS DAUGHTER CLAIR CALLED OF UPDATE PROVIDED PASSWORD.UPDATED ON CURRENT STATUS ADDRESSED CONCERNS
--- NOTE | 2020-03-19 09:47 | NUR ---
DR BAKER AT BEDSIDE UPDATED ON PATIENTS STATUS AND NEW ORDERS RECEIVED AND PLACED
[2020-03-19] MEDS ORDERED: DOPamine 1600MCG/ML D5W 250 ML IV SCH (10:00)
[2020-03-19] MEDS ORDERED: FUROSEMIDE 40 MG/4 ML VIAL IV ONE (10:00)
--- NOTE | 2020-03-19 10:16 | NUR ---
DR HINES AT BEDSIDE DISCUSSED PATIENTS STATUS AND PLAN OF CARE. NO NEW ORDERS AT THIS TIME
[2020-03-19] MEDS: LEVOTHYROXINE SODIUM 100 MCG/5 ML INJ IV SCH (11:11)
[2020-03-19] MEDS: VANCOMYCIN 1GM/250ML 250 ML IV SCH (11:11)
[2020-03-19] MEDS: POTASSIUM CHL 20MEQ/100ML 100 ML IV SCH ×2 (11:11→14:47)
[2020-03-19] MEDS: PANTOPRAZOLE 40 MG/10 ML VIAL INJ IV SCH (11:12)
[2020-03-19] MEDS: NOREPINEPHRINE 8 MG/250ML KIT 250 ML IV SCH (11:14)
[2020-03-19] MEDS ORDERED: DOPamine 1600MCG/ML D5W 250 ML IV ONE (11:28)
--- NOTE | 2020-03-19 12:50 | NUR ---
DR CHADWICK AT BEDSIDE DISCUSSED PATIENTS STATUS AND CURRENT PLAN OF CARE.
--- NOTE | 2020-03-19 17:20 | NUR ---
PATIENTS DAUGHTER CLIFF CALLED FOR UPDATE PROVIDED PASSWORD. UPDATED ON CURRENT STATUS AND PLAN OF CARE
--- NOTE | 2020-03-19 17:24 | NUR ---
SEDATION VACATION- ALL SEDATION OFF PRIOR TO SHIFT, PENDING CPAP TRIAL Addendum: 03/19/20 at 1725 by Laurie Terrazas RN Amended: Links added.
[2020-03-19] MEDS: MORPHINE SULF INJ 2 MG/ML SYRINGE 1ML IV PRN (17:43)
--- NOTE | 2020-03-19 18:10 | NUR ---
DR MENDOZA AT BEDSIDE DISCUSSED PATIENTS STATUS, NO NEW ORDERS
--- NOTE | 2020-03-19 19:12 | NUR ---
RT NOTE PT RECEIVED INTUBATED AND ON MECHANICAL VENTILATION. PT IS ON VENT V11. PT INTUBATED WITH A SIZE 7.0 ETT SECURED 22 CM AT THE LIP VIA MARIUSZ. TUBE POSITION MOVED TO THE RIGHT POSITION TO PREVENT ANY SKIN BREAKDOWN. VENT IS PLUGGED INTO RED OUTLET. ALARMS ARE SET AND AUDIBLE. PT WAS NOT TOLERATING SETTINGS ON SIMV. PER DR HINES, ORDER GIVEN TO PLACE PT BACK ON AC MODE. PT WAS SHOWING SIGNS OF INCREASED WOB WITH A HIGH RR. PT TOLERATING NEW AC SETTINGS WELL AT THIS TIME. RT WILL WATCH PT FOR ANY CHANGES IN WOB.
[2020-03-19] MEDS ORDERED: TPN PER PHARMACY IV NR ×11 (20:00)
--- NOTE | 2020-03-19 20:00 | NUR ---
OPEN ASSUMED CARE OF FEMALE PT ORALLY INTUBATED. PT OFF SEDATION. OPENS EYES DURING TURNING AND ORAL CARE. DOES NOT FOLLOW COMMANDS. FALLS BACK TO SLEEP WHEN NOT STIMULATED. COUGH AND GAG POSITIVE. PUPILS EQUAL AND REACTIVE. PT AFIB RATE 40'S ON TRANSCRIPTER. DOPAMINE GTT INFUSING AT 7 MCG/KG/MIN. NGT TO R. NARE CONNECTED TO LCS. DRAINING SMALL AMOUNT OF PALE GREEN DRAINAGE. PLACEMENT VERIFIED. L. IJ TLC IN PLACE WITH CDI DRESSING. ALL PORTS PATENT. PT RECEIVING TPN AT 52.2 ML/HR. PT WITH MIDLINE INCISION WITH SAMANTHA. INCISION COVERED WITH CDI DRESSING AND ABD BINDER. BARBIE DRAINS X [address] BOTH DRAINING SEROUS DRAINAGE. PT WITH UPPER EXT EDEMA WITH WEEPING OBSERVED TO R. ARM. DRY ABSORBANT PAD PLACED AROUND ARM TO WICK MOISTURE FROM SKIN AND BEDDING. GILLETTE TO GRAVITY DRAINING CLEAR BRIGHT YELLOW URINE. CYNTHIA SCD'S IN PLACE. NO INDICATION OF PAIN OBSERVED. BED IN LOWEST LOCKED POSITION. SIDE RAILS UP X 2. BLANCHABLE REDNESS OBSERVED TO SACRUM. OPTIFOAM GENTLE SACRAL DRESSING IN PLACE. BONY PROMINENCES AND CYNTHIA HEELS OFFLOADED WITH PILLOWS. PT IN FULL VIEW OF RN STATION. WILL CONTINUE TO MONITOR.
--- NOTE | 2020-03-19 21:19 | NUR ---
PT OFF SEDATION Addendum: 03/19/20 at 2123 by Catherine Christina RN Amended: Links added.
--- NOTE | 2020-03-19 21:40 | NUR ---
FAMILY CALL PT DAUGHTER CLAIR CALLED UNIT FOR UPDATE ON PT CONDITION. AFTER PASSWORD FOR PHONE GIVEN. UPDATE PROVIDED. ALL QUESTIONS AND CONCERNS ADDRESSED.
[2020-03-20] VITALS (99 sets, daily range): BP systolic 99–157; BP diastolic 35–92
[2020-03-20] MEDS: ACCU-CHEK COMFORT CURVE STRIP VI SCH ×4 (00:18→23:05)
[2020-03-20] MEDS: PIPERACILLIN-TAZOB 3.375GM 100 ML IV SCH ×5 (00:18→23:51)
[2020-03-20] MEDS: InsuLIN REG 1unit/0.01ml Soln (100units/ml) SC SCH ×4 (00:20→23:09)
[2020-03-20] MEDS: DOPamine 1600MCG/ML D5W 250 ML IV SCH (00:51)
--- NOTE | 2020-03-20 04:00 | NUR ---
INCISION CARE/Patient bathe/linen change DRESSING TO ABDOMINAL INCISION REMOVED. MIDLINE ABDOMINAL INCISION WITH INTACT SAMANTHA OBSERVED TO HAVE A SMALL AREA OF PALE YELLOW THIN DRAINAGE FROM BOTTOM OF INCISION BETWEEN SAMANTHA. INCISION CLEANSED WITH CHLORHEXIDINE SWABS. PAT DRY WITH STERILE 4X4'S. NEW ABD PAD PLACED TO MIDLINE INCISION. BARBIE INSERTION SITES X 2 CLEANSED ABOVE. OBSERVED TO HAVE SMALL AMOUNT OF SEROUS DRAINAGE FROM INSERTION SITES. NEW STERILE SPONGES PLACED. COVERED ALL INCISIONS WITH MEDIPORE TAPE. ABDOMINAL BINDER RE- SECURED. Patient given complete bath. Skin integrity assessed for any changes. Partial linen change provided. Patient repositioned for comfort.
[2020-03-20 05:08] LABS: Basophils # (auto) 0 10 ^3/uL (0-0.2); Basophils % (auto) 0.1 % (0.0-2.0); Eosinophils # (auto) 0.1 10 ^3/uL (0-0.8); Eosinophils % (auto) 0.9 % (0.0-7.0); Monocytes # (auto) 0.3 10 ^3/uL (0-1.3); Platelet Count (auto) 88 10^3/uL (140-450)
[2020-03-20 05:10] LABS: Hematocrit 23.7 % (36.0-46.0); Lymphocytes # (auto) 0.3 10 ^3/uL (0.4-5.4); Lymphocytes % (auto) 3.2 % (10.0-50.0); Mean Corpuscular Hemoglobin 28.1 pg (28.0-32.0); Mean Corpuscular Hgb Conc. 33.6 g/dL (32.0-36.0); Mean Corpuscular Volume 83.8 fL (80.0-100.0); Monocytes % (auto) 3.7 % (0.0-12.0); Neutrophils # (auto) 7.7 10 ^3/uL (1.6-8.6); Neutrophils % (auto) 92.1 % (37.0-80.0); Red Blood Cells 2.83 10^6/uL (4.0-5.20); Red Cell Distribution Width 17.7 % (11.8-14.3); White Blood Cell 8.4 10^3/uL (4.4-10.8)
[2020-03-20 05:32] LABS: BUN/Creatinine Ratio 33.3; Calcium 7.3 mg/dL (8.5-10.1); Magnesium 1.8 mg/dL (1.6-2.6); Potassium 3.5 mmol/L (3.5-5.1)
[2020-03-20 05:35] LABS: Bilirubin, Total 1.9 mg/dL (0.2-1.0); Total Protein 4.2 g/dL (6.4-8.2)
[2020-03-20 05:55] LABS: Phosphorus 2.8 mg/dL (2.5-4.90)
[2020-03-20] MEDS: SODIUM CHLORIDE 0.9% 1,000 ML IV SCH (06:22)
--- NOTE | 2020-03-20 06:39 | NUR ---
MD MENDZOA PAGED PAGED DR MENDOZA REGARDING AM LABS AND CLARIFICATION OF COMMUNICATION ORDER. THIS AM K+ LEVEL 3.5 MG LEVEL 1.8. COMMUNICATION ORDER IN PLACE BY DR MENDOZA TO KEEP K+ LEVEL 4.0 OR HIGHER, KEEP MG LEVEL 2.0 OR HIGHER. NO ACCOMPANYING DOSAGES IN ORDER. AWAIT CALL BACK.
--- NOTE | 2020-03-20 08:11 | NUR ---
FAMILY PHONE CALL: Spoke with patient's daughter, informed her that patient remains minimally responsive. Discussed with her that this is prolonged effects of sedation. Updated on patient's overall condition, informed them that patient remains otherwise stable and that the plan continues to be to perform weaning from the ventilator when the patient becomes awake enough to safely perform.
[2020-03-20] MEDS: VANCOMYCIN 1GM/250ML 250 ML IV SCH (10:44)
[2020-03-20] MEDS: LEVOTHYROXINE SODIUM 100 MCG/5 ML INJ IV SCH (10:45)
[2020-03-20] MEDS: PANTOPRAZOLE 40 MG/10 ML VIAL INJ IV SCH (10:45)
--- NOTE | 2020-03-20 11:51 | NUR ---
Nutrition Follow-up Notes Wt.: 71.2 kg Pt`s intubated sedated with TPN running at 52 mLs/hr which provides 1290 kcal, 60g, 1050 NCP. This provides 103-119% kcals and 10-111% proteins. Est Energy needs: 4645-2791 kcals (20-23 kcal/kgBW), Est Protein needs: 54-60 gms/day (1.0-1.1 gm/kgBW). Will continue to monitor and reassess prn. Labs: CA 7.3 L ALB 1.0 L, PREALB 4.2 L, GLU 136 H, BUN 32 H Skin: Damon scale 12 high risk, incision at site of sx. Please refer to wound assessment report for full details. GI: Pt had 1 BM on 03/12 with 25 ml gastric drainage 03/17 per video systems engineer. PES: Partially resolved: Altered nutrition related lab values r/t current medical condition aeb elev RFTs, low GFR, hyperglycemia, hypoalbuminemia Increased nutrient needs r/t low PO aeb pt`s npo Will continue to monitor NPO status, skin status, pertinent labs and weight trend. F/u in 2-3 days. Rec.: 1.) Continue PN support to meet > 75% of needs. 2) Gradually advance pt to oral diet when medically feasible and as tolerated . 2) Continue current plan of care
--- NOTE | 2020-03-20 17:32 | NUR ---
FAMILY PHONE CALL: Patient's daughters called, requesting to speak to patient. Transferred call too portable phone, phone placed on speaker to allow for family interaction. Family inquired after call to their mother if she was responsive to their voices, informed them that there was no visible response from patient. Discussed with them that it could possibly take a couple of more day for the patient to metabolize all the sedation she has been given. Family verbalized understanding.
[2020-03-20] MEDS: NOREPINEPHRINE 8 MG/250ML KIT 250 ML IV SCH (19:00)
[2020-03-20] MEDS: MIDAZOLAM DRIP 50 mg/50mL 50 ML IV SCH (19:00)
[2020-03-20] MEDS: fentaNYL Drip 2500mCg/250mlNS 250 ML IV SCH (19:00)
--- NOTE | 2020-03-20 19:00 | NUR ---
Opening shift note: Primary RN Canelo received report on patient. Patient intubated ETT 7.0/21@LL, VENT settings: AC 18, TV 480, FIO2 30, PEEP 5, O2 Sat 98%, bilateral lungs clear. Central line left IJ 3 lumen, infusing TPN @ 52mL/hr. Chen catheter draining via gravity with yellow urine. Rectal probe in place. Safety precautions in place. Will continue to monitor.
[2020-03-20] MEDS: MORPHINE SULF INJ 2 MG/ML SYRINGE 1ML IV PRN ×2 (19:26→23:07)
[2020-03-20] MEDS ORDERED: TPN PER PHARMACY IV NR ×10 (20:00)
--- NOTE | 2020-03-20 21:00 | NUR ---
Sedation vacation: Sedation vacation not done due to patient not currently on any sedation medications.
--- NOTE | 2020-03-20 23:24 | NUR ---
OUTPUT: BARBIE#1 -10ML SANGUINEOUS DRAINAGE. BARBIE#2 -60ML SANGUINEOUS DRAINAGE. Chen- 200mL
--- NOTE | 2020-03-20 23:49 | NUR ---
Bed bath: Patient given bed bath. Patient tolerated bed bath well with no s/s of discomfort or distress. RN placed new sacral optifoam for preventive measures. Sacral skin still intact.
[2020-03-21] VITALS (49 sets, daily range): BP systolic 97–202; BP diastolic 32–73
--- NOTE | 2020-03-21 00:36 | NUR ---
Dressing change: RN performed dressing change to abdominal incision per MD orders. Patient was noted to develop facial grimacing and restless. RN administered PRN pain medication. RN will continue to monitor and assess patient.
[2020-03-21] MEDS: HYDROmorphone HCL 2 MG/ML VL IV PRN (00:37)
[2020-03-21] MEDS: SODIUM CHLORIDE 0.9% 1,000 ML IV SCH ×2 (02:00→21:30)
--- NOTE | 2020-03-21 04:00 | NUR ---
Critical lab: RN received call from lab regarding a critical Hgb of 6.8 for the patient. Patients last Hbg on previous blood draw was 8.0. RN was advised from labor utilization superintendent to redraw blood and resend to lab due to possible bad blood draw from patient's line. RN ensured to completely flush all three lumens to patient's central line before drawing blood sample. RN redrew patient's blood and sent back to lab. RN awaiting results. Addendum: 03/21/20 at 0448 by GUILLE LI RN RN RN reassessed patient and does not note any signs of bleeding on the patient, nor from abdominal incision.
[2020-03-21 04:14] LABS: Calcium 6.8 mg/dL (8.5-10.1); Magnesium 2.1 mg/dL (1.6-2.6); Potassium 3.3 mmol/L (3.5-5.1)
[2020-03-21 04:19] LABS: Bilirubin, Total 1.4 mg/dL (0.2-1.0); Phosphorus 3.6 mg/dL (2.5-4.90); Total Protein 3.8 g/dL (6.4-8.2)
[2020-03-21 04:33] LABS: Basophils # (auto) 0 10 ^3/uL (0-0.2); Eosinophils # (auto) 0.1 10 ^3/uL (0-0.8); Lymphocytes # (auto) 0.3 10 ^3/uL (0.4-5.4); Lymphocytes % (auto) 5.3 % (10.0-50.0); White Blood Cell 5.6 10^3/uL (4.4-10.8)
[2020-03-21 04:35] LABS: Basophils % (auto) 0.6 % (0.0-2.0); Eosinophils % (auto) 1.5 % (0.0-7.0); Hematocrit 20.6 % (36.0-46.0); Mean Corpuscular Hemoglobin 28.3 pg (28.0-32.0); Mean Corpuscular Hgb Conc. 33.8 g/dL (32.0-36.0); Mean Corpuscular Volume 83.7 fL (80.0-100.0); Monocytes # (auto) 0.4 10 ^3/uL (0-1.3); Monocytes % (auto) 6.4 % (0.0-12.0); Neutrophils # (auto) 4.8 10 ^3/uL (1.6-8.6); Neutrophils % (auto) 86.2 % (37.0-80.0); Platelet Count (auto) 68 10^3/uL (140-450); Red Blood Cells 2.46 10^6/uL (4.0-5.20); Red Cell Distribution Width 17.7 % (11.8-14.3)
[2020-03-21 04:37] LABS: Albumin 0.9 g/dL (3.4-5.0)
--- NOTE | 2020-03-21 04:44 | NUR ---
Critical lab: RN received call from lab regarding redrawn blood showing a Hgb of 7.0. RN will notify
--- NOTE | 2020-03-21 04:45 | NUR ---
RN paged primary MD. On-call Dr. Ram answered RN's page: MD was made aware of patient's condition and medical history. New orders were received and verified.
[2020-03-21] MEDS: POTASSIUM CHL 20MEQ/100ML 100 ML IV SCH ×2 (05:00→06:48)
--- NOTE | 2020-03-21 05:00 | NUR ---
Type and Screen: RN spoke with lab in regards to blood draw for type and screen. Per laborer tree tapping, they will send a tech to draw the patient's blood right now.
[2020-03-21] MEDS: InsuLIN REG 1unit/0.01ml Soln (100units/ml) SC SCH ×4 (05:39→23:32)
[2020-03-21] MEDS: ACCU-CHEK COMFORT CURVE STRIP VI SCH ×4 (05:40→23:31)
[2020-03-21] MEDS: PIPERACILLIN-TAZOB 3.375GM 100 ML IV SCH ×4 (06:00→23:30)
--- NOTE | 2020-03-21 06:00 | NUR ---
Type and Screen: RN called lab again and spoke with lab in regards to blood draw for type and screen. Per salvage laborer, they will send a tech to draw the patient's blood right now and will page their tech to see patient now.
--- NOTE | 2020-03-21 06:00 | NUR ---
OUTPUT: BARBIE#1 -0ML SANGUINEOUS DRAINAGE. BARBIE#2 -50ML SANGUINEOUS DRAINAGE. Chen- 300mL
--- NOTE | 2020-03-21 06:47 | NUR ---
Type and Screen: Patient type and screen being drawn now.
[2020-03-21] MEDS: fentaNYL Drip 2500mCg/250mlNS 250 ML IV SCH (08:49)
[2020-03-21] MEDS: NOREPINEPHRINE 8 MG/250ML KIT 250 ML IV SCH (09:00)
--- NOTE | 2020-03-21 09:12 | NUR ---
FAMILY PHONE CALL; Patient's daughter called, update provided. Informed daughter plan continues to be to attempt weaning from the ventilator once patient is awake enough to safely proceed.
--- NOTE | 2020-03-21 10:30 | NUR ---
NEURO ASSESSMENT: Patient able to squeeze hand on command, attempts to track when name is called. Patient does continue to be sleepy and falls back to sleep once stimulus is removed.
[2020-03-21] MEDS: VANCOMYCIN 1GM/250ML 250 ML IV SCH (10:33)
[2020-03-21] MEDS: LEVOTHYROXINE SODIUM 100 MCG/5 ML INJ IV SCH (10:33)
[2020-03-21] MEDS: PANTOPRAZOLE 40 MG/10 ML VIAL INJ IV SCH (10:33)
[2020-03-21] MEDS: DOPamine 1600MCG/ML D5W 250 ML IV SCH (10:46)
--- NOTE | 2020-03-21 11:11 | NUR ---
TRANSFUSION: Unit of PRBC's began.
--- NOTE | 2020-03-21 12:25 | NUR ---
RT AT BEDSIDE: Caryn RT at bedside, informed her that patient has been able to follow simple commands. Plan to place patient on CPAP trial.
--- NOTE | 2020-03-21 12:30 | NUR ---
Respiratory note: PLACED PT ON CPAP TRIAL PER DR BAKER'S ORDER. PT TOLERATING CHANGE WELL. WILL CONTINUE TO MONITOR PT. RN MADE AWARE.
--- NOTE | 2020-03-21 13:50 | NUR ---
Respiratory note: CPAP TRIAL TERMINATED DUE TO PT BECOMING TACHYPNEIC WITH RESPIRATORY RATE IN MID, TO HIGH 40'S. PT PLACE BACK ON AC MODE WITH ORIGINAL SETTINGS. PT TOLERATING VENT CHANGE WELL. SPO2 96% ON 30% FIO2, HR 73, RR 29, BS CLEAR/DIMINISHED BILATERALLY. RN MADE AWARE. WILL CONTINUE TO MONITOR PT.
[2020-03-21] MEDS: hydrALAZINE HCL 20 MG/ML VL IV PRN (14:18)
[2020-03-21] MEDS: MORPHINE SULF INJ 2 MG/ML SYRINGE 1ML IV PRN ×2 (15:33→21:15)
[2020-03-21 16:50] LABS: Hematocrit 25.9 % (36.0-46.0); Hemoglobin 8.7 g/dL (12.2-16.2)
[2020-03-21] MEDS: MIDAZOLAM DRIP 50 mg/50mL 50 ML IV SCH (18:15)
--- NOTE | 2020-03-21 18:16 | NUR ---
Respiratory note: RECEIVED PT ON VENT V11. ETT TO VENT. VENT CONNECTED TO RED OUTLET AND O2 SOURCE ALARMS ARE SET AND AUDIBLE. AMBU BAG AND MASK AT BEDSIDE. BS ARE DIMINISHED CLEAR T/O NO SXD DONE AT THIS TIME. PTS CURRENT BODY TEMP READS 98.8F. WILL CONTINUE TO MONITOR Q2H AND NEEDED. RT NAME AND PAGER ASSIGNMENT WRITTEN ON PTS ROOM BOARD.
[2020-03-21] MEDS ORDERED: TPN PER PHARMACY IV NR ×12 (20:00)
--- NOTE | 2020-03-21 20:00 | NUR ---
KYREE called indra alejandro to give report to RN receiving patient. Addendum: 03/21/20 at 2006 by GUILLE LI RN RN Wrong patient. Ignore.
--- NOTE | 2020-03-21 20:18 | NUR ---
Respiratory note: AT BEDSIDE FOR ROUTINE VENT CHECK. NO VENT CHANGES DONE AT THIS TIME. CURRENT TEMP IS 99.0F WILL CONTINUE TO MONITOR.
--- NOTE | 2020-03-21 21:00 | NUR ---
Sedation vacation: Sedation vacation not done due to patient not currently on any sedation medications.
--- NOTE | 2020-03-21 22:16 | NUR ---
Respiratory note: AT BEDSIDE FOR ROUTINE VENT CHECK. NO VENT CHANGES DONE AT THIS TIME. CURRENT TEMP IS 99.9F, SXD VIA ETT FOR SMALL PETIT/WHITE. WILL CONTINUE TO MONITOR.
[2020-03-22] VITALS (74 sets, daily range): BP systolic 111–183; BP diastolic 42–75
--- NOTE | 2020-03-22 00:21 | NUR ---
Respiratory note: AT BEDSIDE FOR ROUTINE VENT CHECK. NO VENT CHANGES DONE AT THIS TIME. CURRENT TEMP IS 98.2F, WILL CONTINUE TO MONITOR.
[2020-03-22 00:53] LABS: Hematocrit 26.1 % (36.0-46.0); Hemoglobin 8.9 g/dL (12.2-16.2)
[2020-03-22] MEDS: hydrALAZINE HCL 20 MG/ML VL IV PRN ×3 (02:11→22:50)
--- NOTE | 2020-03-22 02:21 | NUR ---
Respiratory note: AT BEDSIDE FOR ROUTINE VENT CHECK. NO VENT CHANGES DONE AT THIS TIME. CURRENT TEMP IS 97.9F, PT ACTIVELY MOVING ARMS AROUND. PT TENDS TO DESYNCHRONIZE WITH VENTILATOR BREATHING. PT REMINDED TO STAY CALM AND RELAX. KYREE HAN AT BEDSIDE AND NOTED PT AGITATED. WILL CONTINUE TO MONITOR.
[2020-03-22] MEDS: MORPHINE SULF INJ 2 MG/ML SYRINGE 1ML IV PRN ×3 (02:28→13:50)
[2020-03-22 05:11] LABS: Basophils # (auto) 0 10 ^3/uL (0-0.2); Basophils % (auto) 0.2 % (0.0-2.0); Eosinophils # (auto) 0.1 10 ^3/uL (0-0.8); Hemoglobin 8.8 g/dL (12.2-16.2); Lymphocytes # (auto) 0.3 10 ^3/uL (0.4-5.4); Lymphocytes % (auto) 4.6 % (10.0-50.0); Mean Corpuscular Hemoglobin 28.1 pg (28.0-32.0); Mean Corpuscular Hgb Conc. 33.7 g/dL (32.0-36.0); Mean Corpuscular Volume 83.5 fL (80.0-100.0); Monocytes # (auto) 0.4 10 ^3/uL (0-1.3); Monocytes % (auto) 5.5 % (0.0-12.0); Neutrophils # (auto) 5.9 10 ^3/uL (1.6-8.6); Neutrophils % (auto) 88.7 % (37.0-80.0); Nucleated Red Blood Cells % 0.1 %; Platelet Count (auto) 95 10^3/uL (140-450); Red Blood Cells 3.11 10^6/uL (4.0-5.20); Red Cell Distribution Width 16.7 % (11.8-14.3); White Blood Cell 6.6 10^3/uL (4.4-10.8)
[2020-03-22] MEDS: ACCU-CHEK COMFORT CURVE STRIP VI SCH ×4 (05:19→23:12)
[2020-03-22] MEDS: InsuLIN REG 1unit/0.01ml Soln (100units/ml) SC SCH ×4 (05:19→23:13)
[2020-03-22] MEDS: PIPERACILLIN-TAZOB 3.375GM 100 ML IV SCH ×4 (05:19→23:05)
[2020-03-22 05:22] LABS: Calcium 6.9 mg/dL (8.5-10.1); Magnesium 2.5 mg/dL (1.6-2.6)
[2020-03-22 05:25] LABS: Bilirubin, Total 1.5 mg/dL (0.2-1.0); Phosphorus 2.7 mg/dL (2.5-4.90); Total Protein 4.5 g/dL (6.4-8.2)
--- NOTE | 2020-03-22 06:00 | NUR ---
OUTPUT: BARBIE#1 -20ML SANGUINEOUS DRAINAGE. BARBIE#2 -100ML SANGUINEOUS DRAINAGE. Chen- 1,000mL
--- NOTE | 2020-03-22 06:20 | NUR ---
Respiratory note: RECEIVED PATIENT ON V11 ESPRIT VENT ORALLY INTUBATED WITH A 7.0 ETT SECURED VIA MARIUSZ AT THE 22CM MARKING AT THE LIP, AND MECHANICALLY VENTILATED WITH THE CHARTED SETTINGS. SPO2 97%, LUNG SOUNDS CLEAR T/O, NO SECRETIONS WHEN SUCTIONED. SKIN IS WARM/DRY TO THE TOUCH AND IS INTACT NEAR MARIUSZ SITE. THERE IS A NGT PLACED IN THE RIGHT NARE AND SECURED TO THE NOSE, A TRIPLE LUMEN CENTRAL LINE IS PLACED IN THE LEFT IJ. THERE IS AN ABDOMINAL BINDER ON COVERING SURGICAL SITE, AND TWO BARBIE DRAINS WHICH ARE DRAINING WELL. NO NEW AM CXR TO ASSESS. PATIENT IS RESPONSIVE TO BOTH VERBAL/TACTILE STIMULI, AND IS OFF ALL SEDATION. SHE IS RESTING COMFORTABLY AND TOLERATING VENT WELL, NO CHANGES MADE. VENT PLUGGED INTO RED OUTLET AND ALL ALARMS ARE SET AND AUDIBLE. WILL CONTINUE TO ASSESS PATIENT WELL VENTILATOR FUNCTION.
[2020-03-22 06:34] LABS: BUN/Creatinine Ratio 46.4
--- NOTE | 2020-03-22 08:28 | NUR ---
ASSESSMENT PT RESTING IN BED WITH EYES CLOSED, BUT OPENS EYES TO NAME AND FOLLOWS SIMPLE COMMANDS. PUPILS 3 AND BRISK. ABLE TO MOVE ARMS AND LEGS ARE WEAK. LUNGS CLEAR THROUGHOUT. VENTILATOR SETTINGS OF : 7.0 FR ETT/21 AT THE LIP, TV 480, AC 18, 30% FIO2 AND PEEP OF 5. TELE ATRIAL FIB, APPROX 68, WITH INVERTED T WAVE IN LEADS V AND AVR. PALPABLE PULSES TO ALL EXTREMITIES WITH GENERALIZED EDEMA NOTED. SCDS TO BLE. ABD SOFT WITH VERY FEW BOWEL SOUNDS NOTED. MIDLINE DRESSING THAT IS CLEAN AND DRY WITH 2 BARBIE DRAINS. BARBIE DRAIN #1 TO THE RIGHT IS DRAINING STRAW/PINK TINGED FLUID, AND BARBIE DRAIN #2 IS ON THE LEFT AND DRAINING CLEAR STRAW COLORED FLUID, EMPTIED OF 100ML FLUID. ABD BINDER IN PLACE. GILLETTE CATHETER DRAINING CLEAR YELLOW URINE. LAST BM WAS ON 03/12. TURNED FOR COMFORT TO HER LEFT SIDE. SACRUM WITH OPTIFOAM IN PLACE AND SMALL DARK PINK AREA TO SACRUM THAT IS BLANCHABLE. RAILS UP X4 AND BED IN LOW POSITION FOR PT SAFETY. CONTINUE TO MONITOR.
--- NOTE | 2020-03-22 08:45 | NUR ---
CPAP PT STARTED ON CPAP TRIAL , PER MD ORDER, WITH PEEP OF 5 AND PRESSURE SUPPORT OF 7. VS PRE-CPAP/ 64-19-97% AND 181/75. CONTINUE TO MONITOR.
[2020-03-22] MEDS: fentaNYL Drip 2500mCg/250mlNS 250 ML IV SCH (08:49)
--- NOTE | 2020-03-22 08:51 | NUR ---
Respiratory note: PATIENT PLACED ON CPAP MODE FOR WEANING TRIAL PER DR. HUSTON'S WRITTEN ORDER FOR DAILY WEANING TRIALS. SHE IS TOLERATING WELL AT THIS TIME, TAKING SLOW CONTROLLED BREATHS. SHE WAS EXPLAINED THE PROCESS OF CPAP TRIALS AND NODDED TO UNDERSTANDING WHAT WAS NEEDED FROM HER. KYREE NOEL AT BEDSIDE AND AWARE OF CHANGE AND PATIENT'S CURRENT TOLERANCE. WILL CONTINUE TO MONITOR PATIENT CLOSELY THROUGHOUT PROCESS. SPO2: 99% RR: 15 VT: 463 HR: 61 BP: 181/75 ETCO2: 27
[2020-03-22] MEDS: NOREPINEPHRINE 8 MG/250ML KIT 250 ML IV SCH (09:00)
--- NOTE | 2020-03-22 09:00 | NUR ---
SEDATION VACATION PT OFF SEDATION X 4 DAYS WAITING FOR PT TO WAKE FOR CPAP TRIAL. Addendum: 03/22/20 at 1911 by Ivette Price RN Amended: Links added.
--- NOTE | 2020-03-22 09:00 | NUR ---
TOLERATING CPAP WELL. VS: 59-22-95% 158/50. CONTINUE TO MONITOR.
--- NOTE | 2020-03-22 10:02 | NUR ---
FAMILY RECEIVED A PHONE CALL FROM PT'S DAUGHTER AND AFTER VERIFYING THE PASSWORD , I ANSWERED HER QUESTIONS AND UPDATED HER ON THE PT'S CONDITION INCLUDING CPAP TRIAL IN PROCESS.
--- NOTE | 2020-03-22 10:10 | NUR ---
Respiratory note: WEANING PARAMETERS FOLLOWS: ABG: PH 7.49, CO2 33.7, PO2 107, HCO3 25.6, BE 2.5 NIF: -27 FVC: 1035 RSBI: 55 LEAK: >200ML ALL PARAMETERS WNL. SAMUEL MILLARD PAGED AT THIS TIME FOR EXTUBATION ORDERS.
[2020-03-22] MEDS: PANTOPRAZOLE 40 MG/10 ML VIAL INJ IV SCH (10:13)
[2020-03-22] MEDS: LEVOTHYROXINE SODIUM 100 MCG/5 ML INJ IV SCH (10:13)
[2020-03-22] MEDS: VANCOMYCIN 1GM/250ML 250 ML IV SCH (10:13)
--- NOTE | 2020-03-22 10:32 | NUR ---
Respiratory note: PATIENT EXTUBATED AT 1030 POST POSITIVE CPAP TRIAL/WEANING PARAMETERS, AND SAMUEL MILLARD'S TELEPHONE ORDER. SHE WAS PLACED ON 30% COOL AEROSOL MASK, AND NO STRIDOR WAS HEARD ON AUSCULTATION. KYREE NOEL AT BEDSIDE AND AWARE OF ALL CHANGES MADE. PATIENT TOLERATED EXTUBATION WE,, PROCEDURE COMPLETED WITHOUT INCIDENT.
--- NOTE | 2020-03-22 11:00 | NUR ---
PT RESTING COMFORTABLY WITH VSS: 99.1(R) 53-26-95% AND 154/43. CONTINUE TO MONITOR.
[2020-03-22] MEDS: DOPamine 1600MCG/ML D5W 250 ML IV SCH (11:45)
--- NOTE | 2020-03-22 11:47 | NUR ---
Nutrition Follow-up Notes Wt.: 74.3 kg Pt`s extubated on BIPAP when rounded this a, with no family by bedside. pt is currently NPO with TPN running at 52 mLs/hr which provides 1230 kcal, 70g, 950 NCP. This provides 101-118% kcals and 77-100% proteins. Est Energy needs: 5838-8952 kcals (20-23 kcal/kgBW), Est Protein needs: 54-70 gms/day (1.0-1.3 gm/kgBW). Will continue to monitor and reassess prn. reassessed due to severe hypoalb Labs: ALB 1.0 L, CA 6.9 L, GLU 127 H Skin: Damon scale 12 high risk, incision at site of sx. Please refer to wound assessment report for full details. GI: Pt had 1 BM on 03/12 with 25 ml gastric drainage 03/17 per insolvency practitioner. PES: Partially resolved: Altered nutrition related lab values r/t current medical condition aeb elev RFTs, low GFR, hyperglycemia, hypoalbuminemia Increased nutrient needs r/t low PO aeb pt`s npo Will continue to monitor NPO status, skin status, pertinent labs and weight trend. F/u in 2-3 days. Rec.: 1.) Continue PN support to meet > 75% of needs. 2) Gradually advance pt to oral diet when medically feasible and as tolerated . 2) Continue current plan of care
--- NOTE | 2020-03-22 11:55 | NUR ---
RESTING COMFORTABLY. LUNGS REMAIN CLEAR AND SHE IS ON CMM T 30% FIO2 WITH SATS OF 95%. TELE SR 64. ACCUCHECK OF 188 AND GIVEN 3 UNITS OF REGULAR INSULIN SQ. REPOSITIONED TO THE LEFT SIDE.
--- NOTE | 2020-03-22 14:30 | NUR ---
SWALLOW EVALUATION SWALLOW EVALUATION DONE BY ZAN. PT COUGHED WITH THE FIRST BITE OF APPLESAUCE SO ZAN STOPPED THE EVALUATION. SHE STATED SHE WILL COME BACK TOMORROW AND TRY AGAIN.
--- NOTE | 2020-03-22 17:07 | NUR ---
PAIN PT COMPLAINING OF PAIN TO HER RIGHT SHOULDER. TOO EARLY TO GIVE PAIN MED BY CURRENT ORDER. TURNED PT FROM HER BACK TO HER LEFT SIDE TO TAKE PRESSURE OFF OF THE SHOULDER. ALSO APPLIED A HOT PACK WRAPPED IN A PILLOW CASE. CONTINUE TO MONITOR.
[2020-03-22] MEDS: HYDROmorphone HCL 2 MG/ML VL IV PRN (17:48)
[2020-03-22] MEDS: SODIUM CHLORIDE 0.9% 1,000 ML IV SCH (17:48)
[2020-03-22] MEDS: MIDAZOLAM DRIP 50 mg/50mL 50 ML IV SCH (17:48)
--- NOTE | 2020-03-22 18:00 | NUR ---
INTAKE AND OUTPUT PT 'S OUTPUT FOR THIS SHIFT GILLETTE CATHETER 850ML BARBIE #1 10ML BARBIE #2 325ML NGT 25ML NO BM
--- NOTE | 2020-03-22 18:15 | NUR ---
PENDING TRANSFER CALLED AND SPOKE WITH DR HINES REGARDING HIS ORDER TO TRANSFER THE PT TO TELEMETRY. DR CHADWICK HAD STATED EARLIER , WHEN HE ROUNDED ON THE PT, THAT HE DID NOT WANT HER TRANSFERRED OUT OF THE ICU DUE TO THE HIGH AMOUNT OF DRAINAGE FROM THE BARBIE DRAIN ON THE LEFT. MADE DR HINES AWARE AND HE WAS OKAY WITH KEEPING THE PT IN THE ICU.
--- NOTE | 2020-03-22 19:18 | NUR ---
REPORT REPORT GIVEN TO NIGHT RNJERRI. BEDSIDE CHECK DONE.
--- NOTE | 2020-03-22 19:20 | NUR ---
Opening notes Assumed care, alert and oriented with no signs of distress, on O2/nc @ 2L/min, sat 97%, still afib 50's-60's, abdominal dressing intact, NGT connected to LIS, BARBIE bulbs x 2 noted with serous drainage, SCD's to bilateral legs. fairchild catheter draining to a clear light nabila urine. Bed in lowest position with side rails up, bed alarm on.
[2020-03-22] MEDS ORDERED: TPN PER PHARMACY IV NR ×11 (20:00)
--- NOTE | 2020-03-22 21:48 | NUR ---
Received a call from grand daughter Fatoumata, updated on pt's status and POC, all questions and concerns were addressed, verbalized understanding. Addendum: 03/22/20 at 2149 by Ismael Jacques RN wrong pt
--- NOTE | 2020-03-22 22:51 | NUR ---
Elevated BP Hydralazine 10 mg given IV prn, BP 186/58, HR 58.
--- NOTE | 2020-03-22 23:18 | NUR ---
Ice chips given, well tolerated with no signs of choking or coughing
[2020-03-23] VITALS (38 sets, daily range): BP systolic 106–189; BP diastolic 41–69
[2020-03-23] MEDS: MORPHINE SULF INJ 2 MG/ML SYRINGE 1ML IV PRN (00:12)
--- NOTE | 2020-03-23 00:12 | NUR ---
Pt verbalized "I feel uncomfortable and I want to sleep" repositioned for comfort, changed chux under left arm that's weeping, morphine 2mg given as ordered prn.
--- NOTE | 2020-03-23 02:00 | NUR ---
Wound dressing in the the abdominal area done, BARBIE drains x 2 still with serous output, BARBIE drain # 2 > BARBIE drain # 1, surgical incision in the upper area with minimal serous drainage, misa intact, surgical incision covered with abdominal pads and secured with paper tape and abdominal binder.
--- NOTE | 2020-03-23 02:32 | NUR ---
Patient bathe/linen change Patient given complete CHG bath. Skin integrity assessed for any changes. Full linens and gown changed. Patient repositioned for comfort.
[2020-03-23 04:23] LABS: Basophils # (auto) 0 10 ^3/uL (0-0.2); Basophils % (auto) 0.3 % (0.0-2.0); Eosinophils # (auto) 0.1 10 ^3/uL (0-0.8); Eosinophils % (auto) 0.7 % (0.0-7.0); Hematocrit 27.5 % (36.0-46.0); Hemoglobin 9.2 g/dL (12.2-16.2); Lymphocytes # (auto) 0.3 10 ^3/uL (0.4-5.4); Lymphocytes % (auto) 3.9 % (10.0-50.0); Mean Corpuscular Hemoglobin 28.3 pg (28.0-32.0); Mean Corpuscular Hgb Conc. 33.5 g/dL (32.0-36.0); Mean Corpuscular Volume 84.6 fL (80.0-100.0); Monocytes # (auto) 0.4 10 ^3/uL (0-1.3); Monocytes % (auto) 5.3 % (0.0-12.0); Neutrophils # (auto) 7.2 10 ^3/uL (1.6-8.6); Neutrophils % (auto) 89.8 % (37.0-80.0); Platelet Count (auto) 129 10^3/uL (140-450); Red Blood Cells 3.26 10^6/uL (4.0-5.20); Red Cell Distribution Width 17.2 % (11.8-14.3)
[2020-03-23 04:45] LABS: Albumin 1.1 g/dL (3.4-5.0); Calcium 7.3 mg/dL (8.5-10.1); Potassium 4.4 mmol/L (3.5-5.1)
[2020-03-23 04:51] LABS: BUN/Creatinine Ratio 43.1; Bilirubin, Total 1.1 mg/dL (0.2-1.0); Magnesium 2.6 mg/dL (1.6-2.6); Phosphorus 3.1 mg/dL (2.5-4.90); Total Protein 4.7 g/dL (6.4-8.2)
--- NOTE | 2020-03-23 05:00 | NUR ---
Placed on a bedpan twice but did not have BM
[2020-03-23] MEDS: ACCU-CHEK COMFORT CURVE STRIP VI SCH ×4 (05:44→23:43)
[2020-03-23] MEDS: PIPERACILLIN-TAZOB 3.375GM 100 ML IV SCH ×4 (05:49→23:43)
[2020-03-23] MEDS: InsuLIN REG 1unit/0.01ml Soln (100units/ml) SC SCH ×4 (06:28→23:46)
[2020-03-23] MEDS: hydrALAZINE HCL 20 MG/ML VL IV PRN (06:31)
--- NOTE | 2020-03-23 07:50 | NUR ---
BARBIE DRAINS BARBIE DRAINS X 2 TO LEFT AND RIGHT ABD, DRAINING CLEAR STRAW COLORED FLUID. Addendum: 03/23/20 at 1548 by Ivette Price RN Amended: Links added.
--- NOTE | 2020-03-23 07:50 | NUR ---
ASSESSMENT PT AWAKE AND A/O X3. PT MOVES WITH ASSISTANCE. LUNGS CLEAR THROUGHOUT. O2 AT 3 L/M VIA NC WITH O2 SAT OF 95%. TELE ATRIAL FIB, CONTROLLED RATE. ABD SOFT AND TENDER TO THE TOUCH. MIDLINE INCISION WITH SAMANTHA AND MINIMAL AMOUNT OF CLEAR FLUID NOTED FROM UPPER PART OF INCISION LINE. BARBIE DRAINS X2 TO LEFT AND RIGHT ABD, DRAINING SMALL AMOUNT OF CLEAR YELLOW FLUID ON LEFT AND VELEZ CLEAR FLUID FROM RIGHT. ABD BINDER IN PLACE. GILLETTE DRAINING CLEAR YELLOW URINE. RED BLANCHABLE SPOT NOTED ON SACRUM AND OPTIFOAM DRESSING IN PLACE. BLANCHABLE RED SPOT NOTED ON LEFT HIP WITH OPTIFOAM DRESSING IN PLACE. C/O PAIN OT HER BACK , NECK AND ABD. MEDICATED WITH DILAUDID 0.5MG IVP. RAILS UP X4 AND BED IN LOW POSITION FOR PT SAFETY. CONTINUE TO MONITOR.
[2020-03-23] MEDS: HYDROmorphone HCL 2 MG/ML VL IV PRN ×2 (08:02→19:30)
[2020-03-23] MEDS: fentaNYL Drip 2500mCg/250mlNS 250 ML IV SCH (08:49)
[2020-03-23] MEDS: NOREPINEPHRINE 8 MG/250ML KIT 250 ML IV SCH (09:00)
[2020-03-23] MEDS: VANCOMYCIN 1GM/250ML 250 ML IV SCH (10:16)
[2020-03-23] MEDS: PANTOPRAZOLE 40 MG/10 ML VIAL INJ IV SCH (10:16)
[2020-03-23] MEDS: LEVOTHYROXINE SODIUM 100 MCG/5 ML INJ IV SCH (10:16)
[2020-03-23] MEDS: DOPamine 1600MCG/ML D5W 250 ML IV SCH (11:45)
[2020-03-23] MEDS: ONDANSETRON HCL 4 MG/2 ML VIAL IV PRN (12:31)
[2020-03-23] MEDS: SODIUM CHLORIDE 0.9% 1,000 ML IV SCH (12:40)
--- NOTE | 2020-03-23 12:46 | NUR ---
SWALLOW EVALUATED. PATIENT HAS NATURAL TEETH UPPER AND LOWER. ABLE TO TOLERATE PUREE DIET TEXTURE WITH NECTAR THICK LIQUIDS WITH NO OVERT SIGNS OR SYMPTOMS OF ASPIRATION. SOME COUGHING ON TRIAL OF THIN LIQUIDS. NURSING NOTIFIED.
--- NOTE | 2020-03-23 13:00 | NUR ---
PHYSICAL THERAPY ASSISTED PT UP TO THE CHAIR. MAXIMUM ASSIST FROM 3 PEOPLE.
--- NOTE | 2020-03-23 13:42 | NUR ---
DR CHADWICK SPOKE WITH DR CHADWICK LETTING HIM KNOW THAT PT PASSED THE SWALLOW EVALUATION FOR PUREED DIET AND NECTAR THICKENED LIQUIDS. HE ASKED IF SHE HAS ANY BOWEL ACTIVITY AND I LET HIM KNOW THAT PT HAS HAD 2 BMS. OKAY TO START THE PT ON THE PUREED DIET BUT HE DOES NOT WANT THE PT TRANSFERRED OUT OF THE ICU.
--- NOTE | 2020-03-23 14:50 | NUR ---
BACK TO BED AFTER NEARLY 2 HRS UP IN THE CHAIR.
[2020-03-23] MEDS ORDERED: IOTHALAMATE MEGLUMINE INJ 250ML BOT UR ONE (15:38)
[2020-03-23] MEDS: MIDAZOLAM DRIP 50 mg/50mL 50 ML IV SCH (18:15)
--- NOTE | 2020-03-23 19:30 | NUR ---
REPORT REPORT GIVEN TO NIGHT RN, KANU. PT TOOK A FEW BITES OF HER PUREED DIET AND IS COMPLAINING OF ABD PAIN. MEDICATED WITH DILAUDID 0.5MG IVP. RAILS UP AND BED IN LOW POSITION FOR PT SAFETY. CONTINUE TO MONITOR.
[2020-03-23] MEDS ORDERED: TPN PER PHARMACY IV NR ×9 (20:00)
--- NOTE | 2020-03-23 20:00 | NUR ---
OPEN NOTES PATIENT IS AWAKE,WATCHING TV. ORIENTED TO SELF AND PLACE. ABLE TO MOVE LIMBS BUT WEAK. PAIN WAS LESSER ACCORDING TO PATIENT AFTER THE IV DILAUDID. ABLE TO DRINK WELL. WITH NASAL CANNULA AT 3L/MIN, BREATHING COMFORTABLY. SATURATION 96% ABDOMINAL INCISION AND DRAINS CHECKED - DRESSING DRY AND INTACT. ABDOMINAL BINDER IN PLACE. LEFT IJ TLC - FLUSHED AND CHECKED. DRESSING PEELING OFF NEEDS TO BE CHANGED. WITH ONGOING IV TPN AND IV NS - SEE IV SPREADSHEET. GILLETTE CATHETER DRAINING TO YELLOWISH OUTPUT. FULL ASSESSMENT DONE -REFER INTERVENTIONS
--- NOTE | 2020-03-23 20:05 | NUR ---
BLANCHABLE REDNESS ON THE LOWER ABDOMINAL TRUNK TO THE UPPER THIGH NOTED DAY SHIFT RN NOTED THAT IT WAS THERE EARLIER TOO WILL CONTINUE TO MONITOR
--- NOTE | 2020-03-23 22:00 | NUR ---
ELIMINATION PATIENT HAD BM - LOOSE TO SOFT BROWNISH STOOL. CLEANED. LINEN CHANGE DONE.
--- NOTE | 2020-03-23 22:35 | NUR ---
HEART RATE LOW PATIENT'S HR 37-39/MIN AFIB TRANSIENT EPISODE THEN WILL GO BACK UP TO 40-45/MIN BP STABLE PATIENT IS RESTING WILL CONTINUE TO MONITOR
--- NOTE | 2020-03-23 23:25 | NUR ---
CENTRAL LINE DRESSING CHANGED ASEPTICALLY
[2020-03-24] VITALS (34 sets, daily range): BP systolic 112–174; BP diastolic 28–86
--- NOTE | 2020-03-24 03:45 | NUR ---
HYGIENE/WOUND DRESSING CHANGED CLEANED WITH CHG WIPES.LINENS CHANGED ABDOMINAL INCISION AND BARBIE DRAIN SITE DRESSING CHANGED CLEANED WITH CHG SWABS COVERED WITH PRIMAPORE AND GAUZE
[2020-03-24] MEDS: MORPHINE SULF INJ 2 MG/ML SYRINGE 1ML IV PRN ×3 (03:58→20:32)
[2020-03-24 04:40] LABS: Basophils # (auto) 0 10 ^3/uL (0-0.2); Hemoglobin 8.4 g/dL (12.2-16.2)
[2020-03-24 04:42] LABS: Eosinophils # (auto) 0.2 10 ^3/uL (0-0.8); Eosinophils % (auto) 2.8 % (0.0-7.0); Hematocrit 24.8 % (36.0-46.0); Lymphocytes # (auto) 0.9 10 ^3/uL (0.4-5.4); Lymphocytes % (auto) 10.1 % (10.0-50.0); Mean Corpuscular Hemoglobin 28.5 pg (28.0-32.0); Mean Corpuscular Hgb Conc. 33.8 g/dL (32.0-36.0); Mean Corpuscular Volume 84.1 fL (80.0-100.0); Monocytes # (auto) 1.1 10 ^3/uL (0-1.3); Monocytes % (auto) 11.9 % (0.0-12.0); Neutrophils # (auto) 6.7 10 ^3/uL (1.6-8.6); Neutrophils % (auto) 75.2 % (37.0-80.0); Platelet Count (auto) 155 10^3/uL (140-450); Red Blood Cells 2.95 10^6/uL (4.0-5.20); Red Cell Distribution Width 16.7 % (11.8-14.3); White Blood Cell 8.8 10^3/uL (4.4-10.8)
[2020-03-24 04:58] LABS: Albumin 1.1 g/dL (3.4-5.0); Calcium 6.9 mg/dL (8.5-10.1); Potassium 4.2 mmol/L (3.5-5.1)
[2020-03-24 05:02] LABS: Magnesium 2.1 mg/dL (1.6-2.6); Phosphorus 3.3 mg/dL (2.5-4.90)
[2020-03-24 05:03] LABS: BUN/Creatinine Ratio 55.6; Bilirubin, Total 0.8 mg/dL (0.2-1.0); Total Protein 4.7 g/dL (6.4-8.2)
[2020-03-24] MEDS: InsuLIN REG 1unit/0.01ml Soln (100units/ml) SC SCH ×4 (06:00→23:39)
[2020-03-24] MEDS: PIPERACILLIN-TAZOB 3.375GM 100 ML IV SCH ×4 (06:07→23:42)
[2020-03-24] MEDS: ACCU-CHEK COMFORT CURVE STRIP VI SCH ×4 (06:11→23:32)
--- NOTE | 2020-03-24 07:10 | NUR ---
REPORT REPORT GIVEN TO KYREE CARTER
--- NOTE | 2020-03-24 08:00 | NUR ---
OPEN: STATUS RECEIVED REPORT FROM NIGHT RN, KANU. ASSUMED CARE OF ICU PATIENT, FULL CODE STATUS. PATIENT A & O X2, CALM AND FOLLOWS COMMANDS. PATIENT HAVING SOME PAIN IN ABDOMEN AREA, S/P SX. SEE EMAR FOR PAIN MEDICATION TO BE GIVEN. CURRENT TEMP. 98.5 ORALLY. SEE V/S FLOW SHEET FOR FURTHER INFORMATION. PATIENT ON O2 AT 2L VIA NC. NO SOB AT THIS TIME. NPO STATUS FOR PENDING ABD. SERIES PENDING FOR THIS AM. ABDOMINAL BINDER ON PATIENT ABDOMEN AT THIS TIME, X2 BARBIE DRAINS IN PLACE, TO BULB SUCTION. SCD'S TO LE. LEFT IJ TLC PATENT AND FLUSHED AT THIS TIME. TPN AT 62 ML/HR, NS AT 50 ML/HR. SEE MAINTENANCE TEAM LEADER FOR FURTHER PATIENT INFORMATION. CONTINUE CARE.
[2020-03-24] MEDS: fentaNYL Drip 2500mCg/250mlNS 250 ML IV SCH (08:05)
[2020-03-24] MEDS: NOREPINEPHRINE 8 MG/250ML KIT 250 ML IV SCH (08:05)
[2020-03-24] MEDS: SODIUM CHLORIDE 0.9% 1,000 ML IV SCH (08:05)
--- NOTE | 2020-03-24 08:40 | NUR ---
FAMILY CALLED UPDATED PATIENT'S DAUGHTER ON PT'S CURRENT STATUS AND POC FOR TODAY. WAITING FOR PATIENT'S MD'S TO ROUND TODAY. CONTINUE CARE.
--- NOTE | 2020-03-24 08:45 | NUR ---
DR. HINES AT BEDSIDE: UPDATE MD UPDATED ON PT'S CURRENT STATUS, LABS AND TRENDING HEMODYNAMICS AT THIS TIME. WILL CARRY OUT ANY ORDERS GIVEN. WILL CONTINUE CARE. MD ASSESSING AND TALKING WITH PATIENT AT BEDSIDE.
--- NOTE | 2020-03-24 08:50 | NUR ---
Faxed home health and shower chair order to [facility].
--- NOTE | 2020-03-24 09:03 | NUR ---
PAGED DR. CHADWICK AT THIS TIME CLARIFYING ORDERS GIVEN FOR TODAY. WAITING FOR CALL BACK. CONTINUE CARE.
--- NOTE | 2020-03-24 09:07 | NUR ---
MD CALLED BACK: ORDERS MD UPDATED ON PT'S CURRENT STATUS, LABS AND PENDING ABD. SERIES WITH GASTROGRAFFIN. MD SAID TO CANCEL TEST FOR THIS AM. PENDING CYSTOGRAM RESULTS FROM YESTERDAY. WILL CALL MD IF RESULTS COME BACK ABNORMAL. MD TO COME LATER ON TODAY. WILL CONTINUE CARE.
[2020-03-24] MEDS: DOPamine 1600MCG/ML D5W 250 ML IV SCH (09:25)
[2020-03-24] MEDS: VANCOMYCIN 1GM/250ML 250 ML IV SCH (10:39)
[2020-03-24] MEDS: LEVOTHYROXINE SODIUM 100 MCG/5 ML INJ IV SCH (10:39)
[2020-03-24] MEDS: PANTOPRAZOLE 40 MG/10 ML VIAL INJ IV SCH (10:39)
[2020-03-24] MEDS: hydrALAZINE HCL 20 MG/ML VL IV PRN (10:43)
--- NOTE | 2020-03-24 12:00 | NUR ---
WOUND CARE NOTE: IN TO ASSESS PATIENT'S SKIN AT THIS TIME. PATIENT CONTINUES TO BE IN ICU, BED 105A. SHE IS AWAKE, ALERT, SITTING UP IN BED. SHE HAS ABDOMINAL BINDER IN PLACE TO PROTECT HER ABDOMINAL INCISION. DRESSING IS CDI. PATIENT HAS CURRENT JULIANA SCORE OF 15. SHE IS ABLE TO ASSIST WITH HER TURNING/REPOSITIONING, BUT IS WEAK. SHE HAS SMALL BLANCHABLE RED AREA TO SACRUM, BUT NO WOUNDS NOTED, NO AREAS WITH NON BLANCHABILITY. RE APPLIED OPTIFOAM GENTLE SACRAL DRESSING TO UPPER SACRUM PREVENTATIVE. NO OTHER SKIN INTEGRITY ISSUES SEEN AT THIS TIME. RECOMMEND: CONTINUATION WITH ALL WOUND CARE ORDERS PREVIOUSLY PRESCRIBED BY MD. WOUND CARE TEAM WILL CONTINUE TO MONITOR.
--- NOTE | 2020-03-24 12:23 | NUR ---
Nutrition Follow-up Notes Wt.: 70.4 kg Pt`s extubated on BIPAP when rounded this a, with no family by bedside. pt is currently NPO with TPN running at 62 mLs/hr which provides 1310 kcal, 90g, 950 NCP. This provides 105-121% kcals and 128-166% proteins. Est Energy needs: 0063-5954 kcals (20-23 kcal/kgBW), Est Protein needs: 54-70 gms/day (1.0-1.3 gm/kgBW). Will continue to monitor and reassess prn. reassessed due to severe hypoalb Labs: BUN 30 H, CYNTHIA 1.1 H, Skin: Damon scale 14, mod risk, incision at site of sx. Please refer to wound assessment report for full details. GI: Pt had 3 BM today per senior instructor. PES: Partially resolved: Altered nutrition related lab values r/t current medical condition aeb elev RFTs, low GFR, hyperglycemia, hypoalbuminemia Increased nutrient needs r/t low PO aeb pt`s npo Will continue to monitor NPO status, PN tolerance,skin status, pertinent labs and weight trend. F/u in 2-3 days. Rec.: 1.) Continue PN support to meet > 75% of needs. 2) Gradually advance pt to oral diet when medically feasible and as tolerated . 2) Continue current plan of care
--- NOTE | 2020-03-24 13:00 | NUR ---
DOWNGRADE TO [facility] ORDERS GIVEN DOWNGRADE MADE BY DR. CHADWICK. SEE CHART FOR OTHER ORDERS GIVEN. WILL CONTINUE TO MONITOR PATIENT.
--- NOTE | 2020-03-24 14:40 | NUR ---
TRANSFER TO [facility] ROOM 265 REPORT GIVEN TO KYREE MANN. PATIENT TAKEN UP IN BED TO NEW ROOM. ALL PT'S BELONGINGS, JEWELRY TAKEN UP EITHER ON OR IN PATIENT'S BELONGING BAG AT BEDSIDE. PATIENT TAKEN TO ROOM WITH O2 AT 2L VIA NC. GILLETTE TO GRAVITY. X2 BARBIE DRAINS TO BULB SUCTION. LEFT IJ TLC HOOKED UP TO IVF'S, NS AT 50 ML/HR, TPN AT 62 ML/HR. HUNG ZOSYN ONCE IN [facility], SEE EMAR.
--- NOTE | 2020-03-24 14:45 | NUR ---
LIZBETH WALLS received to [facility] via hospital bed on front desk monitor, and portable 02. Patient connected to unit monitoring and oxygen, and weighed by bedscale. Patient oriented to Brooklyn reese RN, unit, room, bed, and unit policies regarding patient care and visiting hours. All questions and concerns addressed, patient verbalized understanding. See interventions for complete assessment.
--- NOTE | 2020-03-24 15:15 | NUR ---
FAMILY CALLED LEFT MESSAGE ON PT'S DAUGHTER, TOBIAS, PHONE AT THIS TIME. CALLED TO INFORM HER ON PT'S TRANSFER TO [facility] ROOM 265, ALSO TO UP DATE ON PT'S CURRENT STATUS. TRANSFER CARE TO KYREE MANN.
--- NOTE | 2020-03-24 15:40 | NUR ---
Patient out of bed to bedside chair with Elly PT and Doron PT, fall precautions in placed. Patient tolerated well.
--- NOTE | 2020-03-24 15:51 | NUR ---
I called [facility] and left michelle for case management asking for update on home freya and shower chair arrangements.
--- NOTE | 2020-03-24 17:17 | NUR ---
Dr Barrientos at bedside, updated on patient's status. Informed of patient's low HR, lowest 35, verbalized understanding. Patient seen and examined. Will carry out new orders.
--- NOTE | 2020-03-24 17:30 | NUR ---
Patient had 80 ml output LT BARBIE, 5ml RT BARBIE, sanguinous.
[2020-03-24] MEDS ORDERED: TPN PER PHARMACY IV NR ×11 (20:00)
--- NOTE | 2020-03-24 23:16 | NUR ---
PT CARE GAVE PT CHG BATH AND FULL DERICK CHANGE. PT TOLERATED TURNING WELL WITH NO DISTRESS. PT TURNED TO OFFLOAD SACRAL PRESSURE.
[2020-03-25] VITALS: BP 153/42
[2020-03-25] MEDS: MORPHINE SULF INJ 2 MG/ML SYRINGE 1ML IV PRN ×2 (00:35→17:39)
[2020-03-25] MEDS: HYDROmorphone HCL 2 MG/ML VL IV PRN ×2 (03:30→09:23)
[2020-03-25 03:41] LABS: Basophils # (auto) 0 10 ^3/uL (0-0.2); Eosinophils # (auto) 0.1 10 ^3/uL (0-0.8); Hemoglobin 7.9 g/dL (12.2-16.2); Lymphocytes # (auto) 0.4 10 ^3/uL (0.4-5.4); Monocytes # (auto) 0.5 10 ^3/uL (0-1.3); Platelet Count (auto) 173 10^3/uL (140-450)
[2020-03-25 03:44] LABS: Basophils % (auto) 0.3 % (0.0-2.0); Eosinophils % (auto) 0.9 % (0.0-7.0); Hematocrit 23.8 % (36.0-46.0); Lymphocytes % (auto) 4.7 % (10.0-50.0); Mean Corpuscular Volume 84.7 fL (80.0-100.0); Monocytes % (auto) 5.9 % (0.0-12.0); Neutrophils # (auto) 7.6 10 ^3/uL (1.6-8.6); Neutrophils % (auto) 88.2 % (37.0-80.0); Nucleated Red Blood Cells % 0.1 %; Red Blood Cells 2.81 10^6/uL (4.0-5.20); Red Cell Distribution Width 16.8 % (11.8-14.3); White Blood Cell 8.6 10^3/uL (4.4-10.8)
[2020-03-25 03:57] LABS: BUN/Creatinine Ratio 44.8; Calcium 6.9 mg/dL (8.5-10.1); Magnesium 2.1 mg/dL (1.6-2.6); Phosphorus 3.5 mg/dL (2.5-4.90)
[2020-03-25 04:00] VITALS: BP 168/85
[2020-03-25 04:00] LABS: Bilirubin, Total 0.6 mg/dL (0.2-1.0); Total Protein 4.6 g/dL (6.4-8.2)
[2020-03-25 04:01] LABS: Pre Albumin 7.9 mg/dL (20.0-40.0)
[2020-03-25] MEDS: hydrALAZINE HCL 20 MG/ML VL IV PRN ×2 (04:02→21:54)
--- NOTE | 2020-03-25 04:09 | NUR ---
PRN HYDRALAZINE ADMIN PTS BP HAS BEEN LABILE ON Q30 MIN CYCLE. CUFF REPOSITIONED AND APPROPRIATE. SYSTOLIC HAS VARIED BETWEEN 120'S-150'S. MORPHINE AND DILAUDID HAVE BEEN GIVEN FOR PAIN. WILL REASSESS BP
--- NOTE | 2020-03-25 04:33 | NUR ---
BP REASSESSMENT 30 MIN AFTER HYDRALAZINE ADMINISTRATION BP IS NOW 125/37 MMHG. NO SIGNS OF DISTRESS NOTED AT THIS TIME. Addendum: 03/25/20 at 0435 by BILL PEDERSEN RN RN HR IS 47/AFIB/AFLUTTER WHICH SEEMS TO BE PTS BASELINE PER RECORDS.
[2020-03-25] MEDS: InsuLIN REG 1unit/0.01ml Soln (100units/ml) SC SCH ×3 (05:48→17:54)
[2020-03-25] MEDS: SODIUM CHLORIDE 0.9% 1,000 ML IV SCH (05:48)
[2020-03-25] MEDS: ACCU-CHEK COMFORT CURVE STRIP VI SCH ×3 (05:48→17:54)
[2020-03-25] MEDS: PIPERACILLIN-TAZOB 3.375GM 100 ML IV SCH ×4 (06:11→23:49)
--- NOTE | 2020-03-25 06:45 | NUR ---
DRESSING CHANGE ABDOMINAL PRIMAPORE DRESSING CHANGED USING STERILE TECHNIQUE. INCISION INTACT WITH SAMANTHA, NO S/S OF INFECTION NOTED. OLD DRESSING WAS SATURATED WITH MODERATE SEROUS DRAINAGE. NEW DRESSING IS TIMED, DATED, AND INITIALED.
--- NOTE | 2020-03-25 07:02 | NUR ---
BARBIE DRAIN OUTPUTS DRAIN #1- RIGHT SIDE- 0 DRAIN #2- LEFT SIDE- 80 ML CLEAR, YELLOW FLUID.
[2020-03-25 07:58] VITALS: BP 130/39
--- NOTE | 2020-03-25 08:00 | NUR ---
OPENING Report received from Ivet ADORNO. Care initiated and initial assessment complete.
--- NOTE | 2020-03-25 09:06 | NUR ---
SPOKE TO MD: KELLY Spoke to Dr. Garnett over the phone. He would like to know if Dr. Dooley wants to discharge drains and patient. Also if Vanco and Zosyn can be changed to Levaquin.
[2020-03-25] MEDS: PANTOPRAZOLE 40 MG/10 ML VIAL INJ IV SCH (09:22)
[2020-03-25] MEDS: LEVOTHYROXINE SODIUM 100 MCG/5 ML INJ IV SCH (09:22)
[2020-03-25] MEDS: VANCOMYCIN 1GM/250ML 250 ML IV SCH (09:22)
--- NOTE | 2020-03-25 10:20 | NUR ---
BEDSIDE: FARRUKH Dooley bedside assessing patient. Remove wound dressings, surgical site to be FAMILY LIFE COUNSELOR. BARBIE drains to remain. Patient may be downgraded.
--- NOTE | 2020-03-25 11:15 | NUR ---
MD BEDSIDE: JOSAFAT Updated on patient status. Nutrition consult to be placed.
[2020-03-25 12:00] VITALS: BP 154/46
--- NOTE | 2020-03-25 12:17 | NUR ---
DRESSINGS CHANGED BARBIE drains dressings changed, timed, dated, and initialed. Surgical site GUDELIA.
--- NOTE | 2020-03-25 14:45 | NUR ---
REPORT GIVEN Report given to Caryn ADORNO.
--- NOTE | 2020-03-25 14:55 | NUR ---
TRANSFERRED Patient transferred to room 279B. Caryn ADORNO made aware and present upon arrival.
--- NOTE | 2020-03-25 15:00 | NUR ---
RECEIVED ZAC TX PATIENT IS AWAKE,ALERT ADD ORIENTED X4. ABLE TO MOVE LIMBS BUT WEAK. FREE OF PAIN AT THIS TIME. WITH NASAL CANNULA AT 2L/MIN, BREATHING COMFORTABLY. SATURATION 99% ABDOMINAL INCISION AND RIGHT AND LEFT DRAINS CHECKED - ABDOMINAL BINDER OFF AND ABD INCISION OPEN TO AIR, WITH MINIMAL CLEAR DRAINAGE FROM TOP STAPLE. LEFT IJ TLC - FLUSHED AND CHECKED. DRESSING PEELING OFF NEEDS TO BE CHANGED. WITH ONGOING IV TPN- SEE IV SPREADSHEET. GILLETTE CATHETER HUNG TO GRAVITY AND DRAINING TO YELLOW URINE. FULL ASSESSMENT DONE -REFER INTERVENTIONS
--- NOTE | 2020-03-25 17:00 | NUR ---
Patient refused to turn and reposition. Risks of immobility explained to patient, patient states "I just cant! I am in pain and i like being on my back", patient offered pain prn to ease turning and repositioning, patient states, "no, im not in pain of I dont move". Will try again later.
[2020-03-25] MEDS: ONDANSETRON HCL 4 MG/2 ML VIAL IV PRN (17:38)
--- NOTE | 2020-03-25 17:59 | NUR ---
attempt #2 to turn and reposition patient. patient refused.
--- NOTE | 2020-03-25 18:24 | NUR ---
BARBIE DRAIN OUTPUTS DRAIN #1- RIGHT SIDE- 0 DRAIN #2- LEFT SIDE- 50 ML CLEAR, YELLOW FLUID.
[2020-03-25] MEDS ORDERED: TPN PER PHARMACY IV NR ×11 (20:00)
--- NOTE | 2020-03-25 20:05 | NUR ---
Opening Shift Note Assumed care of patient, awake and alert. No S/S of distress/SOB or pain. Patient is on 1 liter of oxygen via nasal cannula. Respirations even and unlabored. Instructed on POC and to call for assist PRN, will continue to monitor for changes Q1hr and PRN.
[2020-03-25 22:00] VITALS: BP 165/46
[2020-03-25 22:54] VITALS: BP 139/55
--- NOTE | 2020-03-25 22:54 | NUR ---
BP reassessed after PRN BP medication 10 mg Apresoline IV given. BP is now 139/55.
[2020-03-26] MEDS: ACCU-CHEK COMFORT CURVE STRIP VI SCH ×5 (00:15→23:45)
[2020-03-26] MEDS: MORPHINE SULF INJ 2 MG/ML SYRINGE 1ML IV PRN ×2 (00:15→05:32)
[2020-03-26] MEDS: InsuLIN REG 1unit/0.01ml Soln (100units/ml) SC SCH ×5 (00:16→23:46)
[2020-03-26] MEDS: SODIUM CHLORIDE 0.9% 1,000 ML IV SCH ×2 (01:09→22:32)
--- NOTE | 2020-03-26 02:00 | NUR ---
Patient refuses to turn and reposition. Patient educated that turning is important to prevent skin problems like skin tears and pressure sores. Patient verbalized understanding. Patient continues to refuse to turn and reposition.
--- NOTE | 2020-03-26 04:45 | NUR ---
Chen care done using Chen care wipes.
[2020-03-26] MEDS: PIPERACILLIN-TAZOB 3.375GM 100 ML IV SCH ×4 (05:32→23:33)
[2020-03-26] MEDS: hydrALAZINE HCL 20 MG/ML VL IV PRN ×2 (05:33→16:43)
[2020-03-26 05:35] VITALS: BP 156/58
[2020-03-26 06:10] LABS: Basophils # (auto) 0 10 ^3/uL (0-0.2); Basophils % (auto) 0.3 % (0.0-2.0); Eosinophils # (auto) 0.1 10 ^3/uL (0-0.8); Eosinophils % (auto) 0.7 % (0.0-7.0); Hematocrit 26.6 % (36.0-46.0); Hemoglobin 8.8 g/dL (12.2-16.2); Lymphocytes # (auto) 0.4 10 ^3/uL (0.4-5.4); Lymphocytes % (auto) 4.1 % (10.0-50.0); Mean Corpuscular Hemoglobin 28.3 pg (28.0-32.0); Mean Corpuscular Hgb Conc. 33.2 g/dL (32.0-36.0); Mean Corpuscular Volume 85.3 fL (80.0-100.0); Monocytes # (auto) 0.6 10 ^3/uL (0-1.3); Monocytes % (auto) 5.9 % (0.0-12.0); Neutrophils # (auto) 9.1 10 ^3/uL (1.6-8.6); Platelet Count (auto) 254 10^3/uL (140-450); Red Blood Cells 3.12 10^6/uL (4.0-5.20); Red Cell Distribution Width 17.4 % (11.8-14.3); White Blood Cell 10.3 10^3/uL (4.4-10.8)
[2020-03-26 06:38] LABS: Albumin 1.2 g/dL (3.4-5.0); BUN/Creatinine Ratio 45.7; Bilirubin, Total 0.8 mg/dL (0.2-1.0); Calcium 7.2 mg/dL (8.5-10.1); Magnesium 2.5 mg/dL (1.6-2.6); Phosphorus 3.1 mg/dL (2.5-4.90); Total Protein 5.3 g/dL (6.4-8.2)
--- NOTE | 2020-03-26 06:55 | NUR ---
BARBIE Drain Output Drain #1 on right side had 0 output. Drain #2 on left side had total of 190 ml output for entire shift, output was yellow and clear.
[2020-03-26 07:00] VITALS: BP 164/51
--- NOTE | 2020-03-26 07:00 | NUR ---
CLOSING NOTE No S/S of distress/SOB or pain. Patient is on 1 liter of oxygen via nasal cannula. Respirations even and unlabored. Endorsed to day shift RN regarding patient's blood pressure of 164/51 at 0700 on 03/26/20.
--- NOTE | 2020-03-26 08:50 | NUR ---
Fairchild catheter dc'd Order to discontinue fairchild catheter. Fairchild dc'd with clean technique following deflation of balloon. Patient tolerated well with no complaints of pain. Continue care.
[2020-03-26 09:00] VITALS: BP 150/55
--- NOTE | 2020-03-26 09:00 | NUR ---
Patient up to chair with 2 people assist. Patient tolerated well.
[2020-03-26] MEDS: VANCOMYCIN 1GM/250ML 250 ML IV SCH (09:33)
[2020-03-26] MEDS: LEVOTHYROXINE SODIUM 100 MCG/5 ML INJ IV SCH (09:33)
[2020-03-26] MEDS: PANTOPRAZOLE 40 MG/10 ML VIAL INJ IV SCH (09:33)
--- NOTE | 2020-03-26 10:00 | NUR ---
Received call from Dr. Parkinson. updated on patients latest status, vitals and labs. Per MD Parkinson's request make a call out to Dr. Garnett to inquire about POC/follow up care for patient. Will carry out order.
[2020-03-26] MEDS: HYDROmorphone HCL 2 MG/ML VL IV PRN (10:36)
--- NOTE | 2020-03-26 10:51 | NUR ---
Call out to Dr. Garnett through exchange service. Per rod tape operator MD will return call at ext [phone]. Will await tamiko back.
--- NOTE | 2020-03-26 12:40 | NUR ---
Dr. Parkinson at bed side assessing patient and discussing POC. Patient verbalizes understanding. New orders received. Will carry out.
--- NOTE | 2020-03-26 12:53 | NUR ---
Per Dr. Parkinson's request call out to Dr. Caba to inquire if able to see patient today/update POC. Since no return call from Md. Garnett.
[2020-03-26 13:00] VITALS: BP 146/58
--- NOTE | 2020-03-26 14:17 | NUR ---
PT PT DECLINED PHYSICAL THERAPY THIS AFTERNOON. PT REPORTS THAT SHE HAS BEEN OOB IN BEDSIDE CHAIR THIS MORNING FOR MORE THAN 2 HOURS. Signed: 03/26/20 at 1420 by KIMMY DIAL PTT <Co-Signature Required> Co-Signed: 03/26/20 at 1420 by Ronaldo Lew PT Addendum: 03/26/20 at 1420 by KIMMY DIAL PTT Amended: Links added.
--- NOTE | 2020-03-26 14:26 | NUR ---
Nutrition Follow-up Notes Wt.: 69.9 kg Pt`s extubated on soft diet. Pt reports eating about 50% of meal this morning, no GI symptoms, appetite is not great. Pt has TPN running at 63 mLs/hr which provides 1310 kcal, 90g, 950 NCP. This provides 105-121% kcals and 128-166% proteins. Est Energy needs: 9293-0054 kcals (20-23 kcal/kgBW), Est Protein needs: 54-70 gms/day (1.0-1.3 gm/kgBW). Will continue to monitor and reassess prn. reassessed due to severe hypoalb Labs: BUN 32H, Glu 112H, Alb 1.2L, Ca 7.2L Skin: Damon scale 13, mod risk, incision at site of sx. Please refer to wound assessment report for full details. GI: Pt had 1 BM today per RN doc PES: Partially resolved: Altered nutrition related lab values r/t current medical condition aeb elev RFTs, low GFR, hyperglycemia, hypoalbuminemia Resolved: Increased nutrient needs r/t low PO aeb pt`s npo Will continue to monitor po intake and TPN rate or if TPN d/c, skin status, pertinent labs and weight trend. Recommend continue to advance diet as medically feasible. F/u in 3-5 days
[2020-03-26 17:00] VITALS: BP 162/75
--- NOTE | 2020-03-26 19:25 | NUR ---
SHIFT BARBIE DRAIN OUTPUTS DRAIN #1- RIGHT SIDE- 0 DRAIN #2- LEFT SIDE- 110 ML CLEAR, YELLOW FLUID.
[2020-03-26] MEDS ORDERED: TPN PER PHARMACY IV NR ×11 (20:00)
[2020-03-26 22:00] VITALS: BP 149/60
--- NOTE | 2020-03-26 23:40 | NUR ---
Spoke with Dr. Mckeon regarding patient requesting pain medication for 4/10 pain in abdomen but no PRN pain medication available. New order received: Dilaudid 0.5 mg Q2HR IV PRN for pain.
--- NOTE | 2020-03-27 00:20 | NUR ---
Abdominal incision and BARBIE drain insertion sites cleansed Abdominal incision cleansed with NS and pat dry with 4x4 gauze. Abdominal incision left open to air. Incision had minimal amount of serous drainage noted, no odor noted from drainage. Jeremi intact and incision well-approximated. BARBIE drain insertion site on right side cleansed with NS, pat dry with 4x4 gauze, covered with 4x4 gauze and secured with micropore tape. BARBIE drain insertion site had minimal amount of thick, serous drainage noted, no odor. BARBIE drain insertion site on left side cleansed with NS, pat dry with 4x4 gauze, covered with 4x4 gauze, covered with 4x4 gauze and secured with micropore tape. BARBIE drain insertion site had no drainage noted.
[2020-03-27] MEDS: HYDROmorphone HCL 2 MG/ML VL IV PRN ×7 (00:25→20:06)
[2020-03-27 05:00] VITALS: BP 148/67
[2020-03-27] MEDS: PIPERACILLIN-TAZOB 3.375GM 100 ML IV SCH ×4 (05:56→23:15)
[2020-03-27] MEDS: InsuLIN REG 1unit/0.01ml Soln (100units/ml) SC SCH ×4 (06:00→23:15)
--- NOTE | 2020-03-27 06:00 | NUR ---
Patient refuses to turn and reposition. Patient educated that turning is important to prevent skin problems like skin tears. Patient verbalized understanding. Patient continues to refuse to turn and reposition.
[2020-03-27 06:08] LABS: Basophils # (auto) 0 10 ^3/uL (0-0.2); Basophils % (auto) 0.4 % (0.0-2.0); Eosinophils # (auto) 0.1 10 ^3/uL (0-0.8); Eosinophils % (auto) 1.1 % (0.0-7.0); Hematocrit 24.8 % (36.0-46.0); Hemoglobin 7.9 g/dL (12.2-16.2); Lymphocytes # (auto) 0.3 10 ^3/uL (0.4-5.4); Lymphocytes % (auto) 3.3 % (10.0-50.0); Mean Corpuscular Hemoglobin 27.9 pg (28.0-32.0); Mean Corpuscular Hgb Conc. 31.7 g/dL (32.0-36.0); Mean Corpuscular Volume 87.9 fL (80.0-100.0); Monocytes # (auto) 0.8 10 ^3/uL (0-1.3); Monocytes % (auto) 7.3 % (0.0-12.0); Neutrophils % (auto) 87.9 % (37.0-80.0); Nucleated Red Blood Cells % 0.1 %; Platelet Count (auto) 278 10^3/uL (140-450); Red Blood Cells 2.82 10^6/uL (4.0-5.20); Red Cell Distribution Width 17.7 % (11.8-14.3); White Blood Cell 10.3 10^3/uL (4.4-10.8)
[2020-03-27] MEDS: ACCU-CHEK COMFORT CURVE STRIP VI SCH ×4 (06:12→23:15)
[2020-03-27 06:35] LABS: Bilirubin, Total 0.6 mg/dL (0.2-1.0); Calcium 7.1 mg/dL (8.5-10.1); Magnesium 2.6 mg/dL (1.6-2.6); Phosphorus 3.2 mg/dL (2.5-4.90); Total Protein 4.8 g/dL (6.4-8.2)
--- NOTE | 2020-03-27 06:45 | NUR ---
BARBIE Drain Output Drain #1 on right side had 0 output. Drain #2 on left side had total of 130 ml output for entire shift, output was yellow and clear.
--- NOTE | 2020-03-27 07:00 | NUR ---
CLOSING NOTE No S/S of distress/SOB or pain. Patient is on 1 liter of oxygen via nasal cannula. Respirations even and unlabored.
--- NOTE | 2020-03-27 07:16 | NUR ---
Opening Shift Note: Assumed care of patient, awake and alert. No S/S of distress/SOB or pain. Patient states pain level 4/10 at this time. Bed in lowest locked position, side rails up x 2, call light within reach. Patient instructed on POC and to call for assist PRN, will continue to monitor for changes Q1hr and PRN.
[2020-03-27] MEDS: hydrALAZINE HCL 20 MG/ML VL IV PRN ×2 (08:35→21:46)
[2020-03-27 09:00] VITALS: BP 184/76
[2020-03-27] MEDS: VANCOMYCIN 1GM/250ML 250 ML IV SCH (10:15)
[2020-03-27] MEDS: PANTOPRAZOLE 40 MG/10 ML VIAL INJ IV SCH (10:16)
[2020-03-27] MEDS: LEVOTHYROXINE SODIUM 100 MCG/5 ML INJ IV SCH (10:16)
--- NOTE | 2020-03-27 10:47 | NUR ---
Patient refused to turn at this time.
--- NOTE | 2020-03-27 12:41 | NUR ---
Patient refused to get out of bed at this time. Educated the patient on the importance of ambulating at this time. Patient continued to refused.
[2020-03-27 14:00] VITALS: BP 161/68
--- NOTE | 2020-03-27 16:19 | NUR ---
Attempted PT treatment but pt refused stating her stomach hurts too bad. Consulted with RN, will attempt again tomorrow.
[2020-03-27 17:00] VITALS: BP 155/70
[2020-03-27] MEDS: SODIUM CHLORIDE 0.9% 1,000 ML IV SCH ×2 (18:00→20:00)
--- NOTE | 2020-03-27 19:07 | NUR ---
CLOSING NOTE: Patient laying in bed. No S/S of pain or distress at this time. Bed alarm activated for patient safety. Care endorsed to NOC RN.
[2020-03-27] MEDS ORDERED: TPN PER PHARMACY IV NR ×10 (20:00)
--- NOTE | 2020-03-27 20:00 | NUR ---
Post abdomen operative site open to air,but in the upper site is weeping with light yellowish drainage, cleansed with NS,dried with gauze and covered with gauzed and abdominal pad and taped it.
--- NOTE | 2020-03-27 20:06 | NUR ---
Opening Shift Note Assumed care of patient, awake and alert. No S/S of distress/SOB c/o abdominal pain 06/14. Instructed on POC and to call for assist PRN, will continue to monitor for changes Q1hr and PRN.Medicated with Hydromorphone .5mg.i.v.p. as needed. Addendum: 03/27/20 at 2227 by Lindsey Morales RN pain level of 4 not 06/14.
[2020-03-27 22:00] VITALS: BP 152/100
[2020-03-28] MEDS: HYDROmorphone HCL 2 MG/ML VL IV PRN ×4 (03:06→17:34)
[2020-03-28 05:00] VITALS: BP 153/69
[2020-03-28] MEDS: PIPERACILLIN-TAZOB 3.375GM 100 ML IV SCH ×3 (05:25→17:33)
[2020-03-28] MEDS: ACCU-CHEK COMFORT CURVE STRIP VI SCH ×3 (05:25→17:49)
[2020-03-28] MEDS: InsuLIN REG 1unit/0.01ml Soln (100units/ml) SC SCH ×3 (05:50→17:49)
[2020-03-28 06:13] LABS: Basophils # (auto) 0 10 ^3/uL (0-0.2); Basophils % (auto) 0.5 % (0.0-2.0); Eosinophils # (auto) 0.1 10 ^3/uL (0-0.8); Eosinophils % (auto) 1.2 % (0.0-7.0); Hematocrit 24.5 % (36.0-46.0); Lymphocytes # (auto) 0.5 10 ^3/uL (0.4-5.4); Lymphocytes % (auto) 4.7 % (10.0-50.0); Mean Corpuscular Hemoglobin 28.4 pg (28.0-32.0); Mean Corpuscular Hgb Conc. 32.6 g/dL (32.0-36.0); Mean Corpuscular Volume 87.1 fL (80.0-100.0); Monocytes # (auto) 0.7 10 ^3/uL (0-1.3); Monocytes % (auto) 7.4 % (0.0-12.0); Neutrophils # (auto) 8.5 10 ^3/uL (1.6-8.6); Neutrophils % (auto) 86.2 % (37.0-80.0); Platelet Count (auto) 328 10^3/uL (140-450); Red Blood Cells 2.81 10^6/uL (4.0-5.20); Red Cell Distribution Width 17.4 % (11.8-14.3); White Blood Cell 9.9 10^3/uL (4.4-10.8)
--- NOTE | 2020-03-28 06:20 | NUR ---
J.p Drain in the left side 70ccpale yellow output, right side is 0.
[2020-03-28] MEDS: hydrALAZINE HCL 20 MG/ML VL IV PRN ×3 (06:28→22:04)
[2020-03-28 06:31] LABS: Potassium 4.3 mmol/L (3.5-5.1)
[2020-03-28 06:43] LABS: Albumin 1.1 g/dL (3.4-5.0); BUN/Creatinine Ratio 47.9; Bilirubin, Total 0.7 mg/dL (0.2-1.0); Calcium 7.2 mg/dL (8.5-10.1); Magnesium 2.3 mg/dL (1.6-2.6); Phosphorus 3.4 mg/dL (2.5-4.90); Total Protein 5.4 g/dL (6.4-8.2)
--- NOTE | 2020-03-28 07:12 | NUR ---
Report given to Pili Osei, patient is resting no respiratory distress, dressing dry and intact.
--- NOTE | 2020-03-28 07:13 | NUR ---
Opening Shift Note: Assumed care of patient, awake and alert. No S/S of distress/SOB. Patient states pain level 4/10, appropriate medication to be given. Bed in lowest locked position, side rails up x 2, call light within reach. Bed alarm activated for patient safety. Patient instructed on POC and to call for assist PRN, will continue to monitor for changes Q1hr and PRN.
[2020-03-28 08:27] VITALS: BP 177/73
[2020-03-28] MEDS: VANCOMYCIN 1GM/250ML 250 ML IV SCH (09:46)
[2020-03-28] MEDS: PANTOPRAZOLE 40 MG/10 ML VIAL INJ IV SCH (09:47)
[2020-03-28] MEDS: LEVOTHYROXINE SODIUM 100 MCG/5 ML INJ IV SCH (09:47)
--- NOTE | 2020-03-28 10:17 | NUR ---
PATIENT OUT OF BED WITH PHYSICAL THERAPY.
--- NOTE | 2020-03-28 11:01 | NUR ---
PATIENT BACK TO BED WITH HELP OF PHYSICAL THERAPY. PATIENT TOLERATED WELL. WILL CONTINUE TO MONITOR.
[2020-03-28 12:56] VITALS: BP 167/57
[2020-03-28] MEDS: HYDROcodone-ACET 5/325MG TAB PO PRN ×2 (13:53→23:25)
[2020-03-28 16:51] VITALS: BP 156/67
--- NOTE | 2020-03-28 19:16 | NUR ---
CLOSING NOTE: Patient resting in bed. No S/S of distress at this time. BARBIE drain #2 output 120 mL. Bed alarm activated for patient safety. Care endorsed to LIA RN.
[2020-03-28] MEDS: TPN PER PHARMACY IV NR ×11 (19:59)
[2020-03-28] MEDS: SODIUM CHLORIDE 0.9% 1,000 ML IV SCH (20:00)
[2020-03-28 22:00] VITALS: BP 158/67
--- NOTE | 2020-03-28 22:46 | NUR ---
FAMILY CALL Spoke to Kimberly, the patient's daughter, and updated her on the patient's condition and plan of care. Kimberly stated that she would like to speak to the attending physician for discharge planning. Will endorse in the morning.
[2020-03-29 05:00] VITALS: BP 179/73
[2020-03-29] MEDS: HYDROcodone-ACET 5/325MG TAB PO PRN ×2 (05:00→18:18)
--- NOTE | 2020-03-29 05:35 | NUR ---
ELEVATED BP The patient's BP is 179/733.Will treat with PRN Hydralazine.
[2020-03-29] MEDS: hydrALAZINE HCL 20 MG/ML VL IV PRN (05:40)
[2020-03-29] MEDS: ACCU-CHEK COMFORT CURVE STRIP VI SCH ×4 (06:00→18:16)
[2020-03-29] MEDS: PIPERACILLIN-TAZOB 3.375GM 100 ML IV SCH ×2 (06:00)
[2020-03-29] MEDS: InsuLIN REG 1unit/0.01ml Soln (100units/ml) SC SCH ×4 (06:00→18:00)
[2020-03-29 07:01] LABS: Basophils # (auto) 0.1 10 ^3/uL (0-0.2); Eosinophils # (auto) 0.1 10 ^3/uL (0-0.8)
--- NOTE | 2020-03-29 07:02 | NUR ---
BARBIE DRAIN OUTPUT J.P Drain #1 had 0 output while #2 45 ml of pale yellow output.
[2020-03-29 07:04] LABS: Basophils % (auto) 0.8 % (0.0-2.0); Eosinophils % (auto) 0.7 % (0.0-7.0); Hematocrit 23.6 % (36.0-46.0); Lymphocytes # (auto) 0.3 10 ^3/uL (0.4-5.4); Lymphocytes % (auto) 3.6 % (10.0-50.0); Mean Corpuscular Hemoglobin 28.7 pg (28.0-32.0); Mean Corpuscular Hgb Conc. 33.9 g/dL (32.0-36.0); Mean Corpuscular Volume 84.6 fL (80.0-100.0); Monocytes # (auto) 0.7 10 ^3/uL (0-1.3); Monocytes % (auto) 8.2 % (0.0-12.0); Neutrophils # (auto) 7.7 10 ^3/uL (1.6-8.6); Neutrophils % (auto) 86.7 % (37.0-80.0); Nucleated Red Blood Cells % 0.1 %; Platelet Count (auto) 398 10^3/uL (140-450); Red Blood Cells 2.79 10^6/uL (4.0-5.20); Red Cell Distribution Width 17.4 % (11.8-14.3); White Blood Cell 8.9 10^3/uL (4.4-10.8)
--- NOTE | 2020-03-29 07:10 | NUR ---
Opening Shift Note: Assumed care of patient, awake and alert x 3. No S/S of distress/SOB or pain. Patient states pain level at this time 0/10. Bed in lowest locked position, election assistant rails up x 2, call light within reach. Bed alarm activated for patient safety. Patient instructed on POC and to call for assist PRN, will continue to monitor for changes Q1hr and PRN.
[2020-03-29 07:23] LABS: Magnesium 2.1 mg/dL (1.6-2.6); Phosphorus 3.3 mg/dL (2.5-4.90)
[2020-03-29 07:27] LABS: Potassium 3.8 mmol/L (3.5-5.1)
[2020-03-29 07:35] LABS: Albumin 1.2 g/dL (3.4-5.0); BUN/Creatinine Ratio 41.2; Bilirubin, Total 0.6 mg/dL (0.2-1.0); Calcium 7.2 mg/dL (8.5-10.1); Total Protein 5.5 g/dL (6.4-8.2)
[2020-03-29 07:49] VITALS: BP 150/66
[2020-03-29] MEDS: PANTOPRAZOLE 40 MG/10 ML VIAL INJ IV SCH (10:10)
[2020-03-29] MEDS: LEVOTHYROXINE SODIUM 100 MCG/5 ML INJ IV SCH (10:10)
[2020-03-29] MEDS: VANCOMYCIN 1GM/250ML 250 ML IV SCH (10:10)
[2020-03-29] MEDS: ENOXAPARIN SOD 40 MG/0.4 ML SYRINGE SC SCH (10:11)
[2020-03-29] MEDS: HYDROmorphone HCL 2 MG/ML VL IV PRN ×3 (10:11→20:05)
[2020-03-29] MEDS ORDERED: OMNIPAQUE ORAL SOLN 500ml 12mg/ml PO ONE (10:46)
[2020-03-29] MEDS ORDERED: IOHEXOL 300 MG/ML 100ML BOTTLE IJ ONE (10:46)
[2020-03-29] MEDS: ALBUMIN 25% 50 ML IV SCH ×2 (12:05→18:17)
[2020-03-29 13:00] VITALS: BP 151/64
--- NOTE | 2020-03-29 15:39 | NUR ---
Patient refused PT. Rn Laura was notified. Addendum: 03/29/20 at 1540 by TASHI MINOR PTT Amended: Links added.
[2020-03-29 16:55] VITALS: BP 148/69
[2020-03-29] MEDS: FUROSEMIDE 20 MG/2 ML VIAL IV SCH (18:16)
--- NOTE | 2020-03-29 18:56 | NUR ---
CLOSING NOTE: Patient in bed. No S/S of pain, distress or SOB. Bed alarm set. Care endorsed.
--- NOTE | 2020-03-29 19:20 | NUR ---
Opening Shift Note: Assumed care of patient. Patient awake, alert, and oriented X 4. No S/S of respiratory distress noted. Patient reports pain that will be addressed per Dr. swann. Respirations regular and non-labored.Patient on 1 lpm NC with SpO2 91%. Two BARBIE drains are patent and drain serous fluid. Bed in lowest locked position, side rails up x 2, call light within reach. Bed alarm activated for patient safety. Patient instructed on POC and to call for assistance as needed. Will continue to monitor for changes Q1hr and PRN.
[2020-03-29] MEDS: TPN PER PHARMACY IV NR ×11 (19:56)
[2020-03-29] MEDS ORDERED: TPN PER PHARMACY IV NR ×11 (20:00)
[2020-03-29] MEDS: SODIUM CHLORIDE 0.9% 1,000 ML IV SCH (20:57)
[2020-03-29 22:39] VITALS: BP 176/53
[2020-03-30] MEDS: ACCU-CHEK COMFORT CURVE STRIP VI SCH ×5 (00:36→20:19)
[2020-03-30] MEDS: HYDROmorphone HCL 2 MG/ML VL IV PRN ×4 (01:37→23:12)
[2020-03-30] MEDS: ALBUMIN 25% 50 ML IV SCH (02:55)
--- NOTE | 2020-03-30 03:04 | NUR ---
BARBIE DRAIN OUTPUT BARBIE Drain #1 had 0 ML output; BARBIE Drain #2 had 50 ml of pale yellow output.
[2020-03-30 04:00] VITALS: BP 180/65
[2020-03-30] MEDS: hydrALAZINE HCL 20 MG/ML VL IV PRN ×2 (04:02→11:20)
[2020-03-30 05:24] VITALS: BP 189/57
[2020-03-30] MEDS: FUROSEMIDE 20 MG/2 ML VIAL IV SCH ×2 (05:44→17:18)
[2020-03-30] MEDS: InsuLIN REG 1unit/0.01ml Soln (100units/ml) SC SCH ×5 (05:53→20:34)
[2020-03-30 06:12] LABS: Basophils # (auto) 0.1 10 ^3/uL (0-0.2); Basophils % (auto) 0.8 % (0.0-2.0); Eosinophils # (auto) 0 10 ^3/uL (0-0.8); Eosinophils % (auto) 0.5 % (0.0-7.0); Hematocrit 23.6 % (36.0-46.0); Hemoglobin 7.7 g/dL (12.2-16.2); Lymphocytes # (auto) 0.4 10 ^3/uL (0.4-5.4); Lymphocytes % (auto) 4.8 % (10.0-50.0); Mean Corpuscular Hemoglobin 27.7 pg (28.0-32.0); Mean Corpuscular Hgb Conc. 32.9 g/dL (32.0-36.0); Mean Corpuscular Volume 84.2 fL (80.0-100.0); Monocytes # (auto) 0.8 10 ^3/uL (0-1.3); Monocytes % (auto) 10.4 % (0.0-12.0); Neutrophils # (auto) 6.3 10 ^3/uL (1.6-8.6); Neutrophils % (auto) 83.5 % (37.0-80.0); Nucleated Red Blood Cells % 0.2 %; Platelet Count (auto) 438 10^3/uL (140-450); Red Cell Distribution Width 17.8 % (11.8-14.3); White Blood Cell 7.5 10^3/uL (4.4-10.8)
[2020-03-30 06:34] LABS: Albumin 1.7 g/dL (3.4-5.0); Calcium 7.5 mg/dL (8.5-10.1); Magnesium 2.3 mg/dL (1.6-2.6); Potassium 3.9 mmol/L (3.5-5.1)
[2020-03-30 06:40] LABS: BUN/Creatinine Ratio 39.7; Bilirubin, Total 0.6 mg/dL (0.2-1.0); Total Protein 5.9 g/dL (6.4-8.2)
--- NOTE | 2020-03-30 07:19 | NUR ---
Opening Shift Note: Assumed care of patient, patient asleep at this time. No S/S of distress/SOB or pain. Bed in lowest locked position, side rails up x 2, call light within reach. Patient will be instructed on POC and to call for assist PRN, will continue to monitor for changes Q1hr and PRN.
[2020-03-30 09:00] VITALS: BP 163/57
[2020-03-30] MEDS: LEVOTHYROXINE SODIUM 100 MCG/5 ML INJ IV SCH (09:25)
[2020-03-30] MEDS: POTASSIUM CHL 20 Meq TABLET PO SCH (09:26)
[2020-03-30] MEDS: PANTOPRAZOLE 40 MG/10 ML VIAL INJ IV SCH (09:26)
[2020-03-30] MEDS: ENOXAPARIN SOD 40 MG/0.4 ML SYRINGE SC SCH (09:26)
[2020-03-30] MEDS: HYDROcodone-ACET 5/325MG TAB PO PRN ×2 (09:26→17:19)
--- NOTE | 2020-03-30 09:47 | NUR ---
I faxed SNF order to [facility].
[2020-03-30 11:32] LABS: INR 1.12 (0.9-1.15)
--- NOTE | 2020-03-30 12:49 | NUR ---
Nutrition Follow-up Notes Wt.: 72.6 kg Pt`s extubated on soft diet with inadeiqte PO of 50% x 4 per RN doc. pt also on PN at 65 mLs/hr which provides 1310 kcal, 90g, 950 NCP. This provides 105-121% kcals and 128-166% proteins. Est Energy needs: 5550-7843 kcals (20-23 kcal/kgBW), Est Protein needs: 54-70 gms/day (1.0-1.3 gm/kgBW). Will continue to monitor and reassess prn. reassessed due to severe hypoalb Labs: GLU 110 H, ALB 1.7 L, CA 7.5 L. Skin: Damon scale 17, mod risk, incision at site of sx. Please refer to wound assessment report for full details. GI: Pt had 1 BM today per RN doc PES: Partially resolved: Altered nutrition related lab values r/t current medical condition aeb elev RFTs, low GFR, hyperglycemia, hypoalbuminemia Resolved: Increased nutrient needs r/t low PO aeb pt`s npo Will continue to monitor po intake and TPN rate or if TPN d/c, skin status, pertinent labs and weight trend. F/u in 3-5 days Rec: 1) consider ensure enlive 1 carton bid as PO is low. 2) consider to taper PN support as pt tolerates PO well. 3) continue current plan of care
[2020-03-30 13:42] VITALS: BP 192/69
--- NOTE | 2020-03-30 17:00 | NUR ---
Patient blood pressure at this time is 202/76 Spoke with Heriberto Peterson NP. New orders received. read back and verified.
[2020-03-30 17:06] VITALS: BP 202/76
[2020-03-30] MEDS ORDERED: LABETALOL HCL 5 MG/ML 4ML SYRINGE IV ONE (17:15)
--- NOTE | 2020-03-30 19:15 | NUR ---
Opening Shift Note: Assumed care of patient. Patient is awake, alert, and oriented X 4. No S/S of respiratory distress or pain. Bed in lowest locked position, side rails up x 2, call light within reach. Tele box matches the monitor. TPN running at 65 ml/h through IJ. Patient instructed on POC and to call for assistance as needed. Will continue to monitor for changes Q1hr and PRN.
--- NOTE | 2020-03-30 19:20 | NUR ---
DRESSING CHANGED TO ABDOMINAL INCISION. BARBIE DRAIN #2 OUTPUT 20 ML, NO OUT PUT FOR DRAIN #1
--- NOTE | 2020-03-30 19:48 | NUR ---
Closing note: Patient resting in bed. No S.S of pain, distress or SOB at this time. Care endorsed to NOC RN
[2020-03-30] MEDS ORDERED: TPN PER PHARMACY IV NR ×11 (20:00)
[2020-03-30] MEDS: SODIUM CHLORIDE 0.9% 1,000 ML IV SCH (20:37)
[2020-03-30 21:15] VITALS: BP 184/89
[2020-03-31] VITALS (7 sets, daily range): BP systolic 158–211; BP diastolic 75–86
[2020-03-31] MEDS: LABETALOL HCL 5 MG/ML 4ML SYRINGE IV PRN ×2 (01:07→05:11)
--- NOTE | 2020-03-31 05:12 | NUR ---
BARBIE DRAIN OUTPUT BARBIE Drain #1 had 0 ML output; BARBIE Drain #2 had 55 ml of pale yellow output.
[2020-03-31 06:02] LABS: Albumin 1.6 g/dL (3.4-5.0); Calcium 7.8 mg/dL (8.5-10.1); Magnesium 2.5 mg/dL (1.6-2.6); Potassium 4.5 mmol/L (3.5-5.1)
[2020-03-31] MEDS: FUROSEMIDE 20 MG/2 ML VIAL IV SCH ×2 (06:04→17:10)
[2020-03-31] MEDS: ACCU-CHEK COMFORT CURVE STRIP VI SCH ×3 (06:05→17:08)
[2020-03-31] MEDS: HYDROmorphone HCL 2 MG/ML VL IV PRN (06:05)
[2020-03-31 06:06] LABS: BUN/Creatinine Ratio 42.7; Bilirubin, Total 0.6 mg/dL (0.2-1.0); Phosphorus 3.6 mg/dL (2.5-4.90); Total Protein 6.2 g/dL (6.4-8.2)
[2020-03-31] MEDS: InsuLIN REG 1unit/0.01ml Soln (100units/ml) SC SCH ×3 (06:53→17:08)
--- NOTE | 2020-03-31 07:30 | NUR ---
Opening Shift Note: Assumed care of patient. Patient awake, alert, and oriented X 4. No S/S of respiratory distress noted.up in chair, Respirations regular and non-labored.Patient on 2 liters NC, Two BARBIE drains are patent and drain serous fluid. Bed in lowest locked position,call light within reach. Patient instructed on POC and to call for assistance as needed. Will continue to monitor for changes Q1hr and PRN.
--- NOTE | 2020-03-31 08:45 | NUR ---
MD VISIT DR. CHADWICK HERE TO SEE AND EXAMINED PATIENT
--- NOTE | 2020-03-31 08:55 | NUR ---
HAD EPISODE OF LOOSE LIQUIDLY YELLOW COLOR STOOL
--- NOTE | 2020-03-31 08:55 | NUR ---
PATIENT CLEAN AND MADE COMFORTABLE,BUTTOCKS REDNESS DUE TO MOISTURE SKIN BLANCHABLE
--- NOTE | 2020-03-31 09:32 | NUR ---
JUDY Rodriguez SENIOR PENSIONS ADMINISTRATOR STATED NEEDING ORDER FOR HOSPITAL BED TO BE PUT IN (PER PATIENT DAUGHTER REQUEST)
--- NOTE | 2020-03-31 10:02 | NUR ---
WOUND CARE NOTE: Wound care in to see patient for skin integrity monitoring. Patient is now in [place] [facility]/telemetry unit. Patient is resting in bed in Rm. 279B. She's awake, alert and oriented. She's in no stated pain at this time. Patient remain wound free other than abdominal incision s/p Exploratory Lap with C/D/I dressing and intact BARBIE drain. Patient tolerated skin examination well. Repositioned for comfort facing her Lt side, redistributed pressure points with pillows. Bed in low position, call ryan within reach, bed alarm on. RECOMMENDATION: Continuation of all wound care orders prescribed by MD, continue with skin/wound plan of care, continue monitoring by wound care while patient is hospitalized. Addendum: 03/31/20 at 1428 by Jennifer Solis RN Amended: Links added.
--- NOTE | 2020-03-31 10:30 | NUR ---
BACK TO BED,TOLERATED ACTIVITY
[2020-03-31] MEDS: PANTOPRAZOLE 40 MG/10 ML VIAL INJ IV SCH (10:45)
[2020-03-31] MEDS: LEVOTHYROXINE SODIUM 100 MCG/5 ML INJ IV SCH (10:45)
[2020-03-31] MEDS: HYDROcodone-ACET 5/325MG TAB PO PRN ×2 (10:46→20:34)
[2020-03-31] MEDS: ENOXAPARIN SOD 40 MG/0.4 ML SYRINGE SC SCH (10:46)
[2020-03-31] MEDS: POTASSIUM CHL 20 Meq TABLET PO SCH (10:46)
--- NOTE | 2020-03-31 10:46 | NUR ---
C/O ABDOMINAL INCISIONAL PAIN,SCALE OF 7/10,PATIENT MEDICATED WITH NORCO 5/325 PO,SEE eMAR FOR DETAIL.
--- NOTE | 2020-03-31 11:44 | NUR ---
Faxed order for hospital bed to [facility].
--- NOTE | 2020-03-31 12:05 | NUR ---
Spoke to Kyler from Radiology re IR to drain abscess,stated per IR MD unable to do due to no access to the abscess to be drain
--- NOTE | 2020-03-31 12:29 | NUR ---
OOB,UP IN CHAIR ASSISTED BY SILVERIO
--- NOTE | 2020-03-31 13:25 | NUR ---
DR. KC CALLED RECEIVED ORDER FOR STAT MIDLINE INSERTION
[2020-03-31 13:50] LABS: % Iron Saturation 10.8 % (15-50)
--- NOTE | 2020-03-31 17:10 | NUR ---
SBP 196/81,HR 55 REPORTED BY TAMAR SAWYER
--- NOTE | 2020-03-31 17:16 | NUR ---
BLOOD PRESSURE RECHECKED SBP 158/75 HR 43
--- NOTE | 2020-03-31 18:03 | NUR ---
BARBIE DRAINED #1 0,#2 5CC
--- NOTE | 2020-03-31 19:00 | NUR ---
DR. IYER CALLED RE DISCHARGE ORDER INFORMED DAUGHTER CALLED THIS AFTERNOON STILL WAITING FOR HOSPITAL BED TO DELIVERED,MID LINE NOT INSERTED YET BUT PICC LINE RN HERE TO INSERT LINE,INFORMED MD GRAF PATIENT ALSO ON TPN AND NOTHING WAS SET UP AND PATIENT NEEDING TRANSPORTATION TO HOME.RECEIVED INSTRUCTION TO CALL HIS TELECOMMUNICATIONS LINESWORKER MARCOS AT [phone] TO INFORM ABOVE.REPORT GIVEN TO MARCOS FITZGERALD SHIFT RN FOR CONTINUATION OF CARE,AND FOR ABOVE INFORMATION.
[2020-03-31] MEDS: SODIUM CHLORIDE 0.9% 1,000 ML IV SCH (20:00)
--- NOTE | 2020-03-31 20:09 | NUR ---
Called Mission Commander Michelle, left a message: Called case management social workermanager ornelas via provided number #[phone] Sebastian request. Left a message regarding patients discharge order and need for TPN and transport arrangements for home. Also notified that Daughter is still waiting for hospital bed to arrive at the home today per Day shift nurse. Waiting for call back.
[2020-03-31] MEDS: TPN PER PHARMACY IV NR ×11 (21:12)
--- NOTE | 2020-03-31 22:10 | NUR ---
Midline Placement: Patient educated on need for midline placement. All risks and benefits explained and all questions and concerns addresses prior to procedure. 4Fr 20cm midline inserted via right basilic vein using Ultrasound. Sterile technique utilized. Blood return obtained from single lumen and flushed easily with NS using proper technique. Midline secured with saline lock; biodisc and occlusive dressing applied. Primary RN notified. Midline lot #[id number]. External length 0cm Internal length 20cm
--- NOTE | 2020-04-01 04:02 | NUR ---
PATIENT HAD A SMALL BOWEL MOVEMENT AND INCONTINENT OF BOTH BOWEL AND BLADDER. COMPLETE BED CHANGED DONE.
--- NOTE | 2020-04-01 04:10 | NUR ---
Elevated blood pressure: Patient had an elevated blood pressure of 193/84 first check and blood pressure of 198/72 second check. Heart rate 53. Called and spoke with Dr. Yo dick for MD Garcia at this time. Notified of elevated blood pressure. New orders received. To place orders.
[2020-04-01] MEDS: HYDROcodone-ACET 5/325MG TAB PO PRN ×5 (04:21→22:30)
[2020-04-01] MEDS: hydrALAZINE HCL 20 MG/ML VL IV PRN ×2 (04:27→17:42)
--- NOTE | 2020-04-01 05:16 | NUR ---
Faxed Midline placement report: Faxed midline placement report to [facility] pharmacy, fax number #[phone] as given by Day shift RN. Per Day shift RN Jemma Sewell from [facility] pharmacy needs information regarding midline to be faxed to #[phone].
[2020-04-01 05:26] VITALS: BP 193/84
[2020-04-01] MEDS: InsuLIN REG 1unit/0.01ml Soln (100units/ml) SC SCH ×4 (06:00→17:43)
[2020-04-01] MEDS: ACCU-CHEK COMFORT CURVE STRIP VI SCH ×4 (06:29→17:42)
[2020-04-01] MEDS: FUROSEMIDE 20 MG/2 ML VIAL IV SCH ×2 (06:40→17:42)
--- NOTE | 2020-04-01 06:58 | NUR ---
Elevated blood pressure: Patient still had elevated blood pressure at 194/75, heart rate 56. Got in contact with Dr. Yo Garcia MD. Notified that patient still has elevated blood pressure. New orders received. To place orders.
[2020-04-01] MEDS ORDERED: hydrALAZINE HCL 20 MG/ML VL IV ONE (07:00)
[2020-04-01 07:26] LABS: Albumin 1.6 g/dL (3.4-5.0); Calcium 7.8 mg/dL (8.5-10.1)
[2020-04-01 07:30] LABS: BUN/Creatinine Ratio 45.9; Bilirubin, Total 0.6 mg/dL (0.2-1.0); Phosphorus 3.4 mg/dL (2.5-4.90)
--- NOTE | 2020-04-01 07:30 | NUR ---
Opening Note Received pt AAOx4 lying in bed eating breakfast. Pt oriented to staff and POC. Bed is locked at lowest position and side rails are up x2. Pt able to demonstrate how to assist with self turn every two hours with assistance. Benefits of turning every two hours discussed with the patient. Call light is within reach and the pt was advised to call if she needs anything. Patient verbalized understanding. Pt repositioned to take pressure off sacrum and heels. Will continue to monitor. Signed: 04/01/20 at 1710 by SAE KING <Co-Signature Required> Co-Signed: 04/01/20 at 1710 by Johana Riley RN
--- NOTE | 2020-04-01 07:30 | NUR ---
BARBIE DRAINED #1: 0ML, BARBIE #2: 70ML OF SEROUS FLUID
--- NOTE | 2020-04-01 08:09 | NUR ---
I faxed home TPN/home health order to [facility].
--- NOTE | 2020-04-01 08:51 | NUR ---
AT BEDSIDE DR HINES AT BEDSIDE, DISCUSSING POC, CONT CARE
[2020-04-01] MEDS ORDERED: cloNIDine HCL 0.1 MG TAB PO ONE (09:00)
--- NOTE | 2020-04-01 09:22 | NUR ---
I spoke with [facility] Terry Cloth Cutter Hand Michelle-she said [facility] is providing the home TPN. SG to deliver hospital bed-Michelle will call me back regarding the home health arrangements.
--- NOTE | 2020-04-01 09:25 | NUR ---
RADIOLOGIST CONSULT ORDERED SPOKE WITH DR HINES AND REQUESTED A RADIOLOGIST CONSULT TO POSSIBLY DRAIN PLEURAL EFFUSION, SPOKE WITH SONAM CIRCULATION SALES REPRESENTATIVE, STATES THERE IS NOT RADIOLOGY MD AND POSSIBLY DR PÉREZ CAN DO IT, DR HINES INFORMED, CONT CARE
[2020-04-01 09:35] VITALS: BP 187/64
[2020-04-01] MEDS: ENOXAPARIN SOD 40 MG/0.4 ML SYRINGE SC SCH (10:00)
[2020-04-01] MEDS: LEVOTHYROXINE SODIUM 100 MCG/5 ML INJ IV SCH (10:04)
[2020-04-01] MEDS: POTASSIUM CHL 20 Meq TABLET PO SCH (10:04)
[2020-04-01] MEDS: PANTOPRAZOLE 40 MG/10 ML VIAL INJ IV SCH (10:04)
[2020-04-01 12:30] VITALS: BP 150/58
--- NOTE | 2020-04-01 12:30 | NUR ---
Ambulation Refusal Asked pt if she was okay to walk around the unit or get out of bed to the chair. Pt refused and stated she "is tired". Pt educated on the importance and the benefits of getting up and out of bed as well as ambulation. pt verbalized understanding but continued to refuse getting out of bed or ambulating. Will continue to reassess and encourage ambulation and the willingness to get out of bed. Signed: 04/01/20 at 1716 by SAE KING <Co-Signature Required> Co-Signed: 04/01/20 at 1716 by Johana Riley RN
--- NOTE | 2020-04-01 13:05 | NUR ---
I spoke with HERITA Windows Migration Technician Michelle-she said home health will be provided by [facility]. [facility] to provided home IV TPN-[facility] to [facility] at [phone] ([phone]).
[2020-04-01 13:24] LABS: INR 1.08 (0.9-1.15); Partial Thromboplastin Time 29.6 sec (23.64-32.05)
--- NOTE | 2020-04-01 13:50 | NUR ---
Dressing Change Abdominal incision dressing soiled, dressing changed. midline incision cleaned with NS and sterile gauze. Pt tolerated and medicated prior. Noted 19 misa well approximated and in place. Both BARBIE drains intact and patent. Will continue to monitor. Signed: 04/01/20 at 1725 by SAE KING <Co-Signature Required> Co-Signed: 04/01/20 at 1725 by Johana Riley RN
--- NOTE | 2020-04-01 14:13 | NUR ---
PT PT DECLINED PHYSICAL THERAPY THIS AFTERNOON. Signed: 04/01/20 at 1414 by KIMMY DIAL PTT <Co-Signature Required> Co-Signed: 04/01/20 at 1414 by Ronaldo Lew PT Addendum: 04/01/20 at 1414 by KIMMY DIAL PTT Amended: Links added.
--- NOTE | 2020-04-01 15:58 | NUR ---
Nutrition Follow-up Notes Wt.: 72.1 kg Pt`s extubated on soft diet with inadequate PO of 25% and 5% 04/01. Pt states soft food is not good. pt also on PN at 65 mLs/hr which provides 1310 kcal, 90g, 950 NCP. This provides 105-121% kcals and 128-166% proteins. Est Energy needs: 0259-9820 kcals (20-23 kcal/kgBW), Est Protein needs: 54-70 gms/day (1.0-1.3 gm/kgBW). Will continue to monitor and reassess prn. reassessed due to severe hypoalb Labs: BUN 34H, Gluc 114H, Ca 7.8L, Alb 1.6L Skin: Damon scale 16, mod risk, incision at site of sx. Please refer to wound assessment report for full details. GI: Pt had 3 BM today per RN doc PES: Partially resolved: Altered nutrition related lab values r/t current medical condition aeb elev RFTs, low GFR, hyperglycemia, hypoalbuminemia Resolved: Increased nutrient needs r/t low PO aeb pt`s npo Will continue to monitor po intake and TPN rate or if TPN d/c, skin status, pertinent labs and weight trend. F/u in 3-5 days Rec: 1) consider ensure enlive 1 carton bid as PO is low. 2) consider to taper PN support as pt tolerates PO well. 3) continue current plan of care
[2020-04-01 16:34] VITALS: BP 198/82
--- NOTE | 2020-04-01 16:48 | NUR ---
TATIANA HELD SPOKE WITH SONAM MACHINE CUTTER, STATES PT'S RIGHT PLEURAL EFFUSION CAN BE DRAINED TOMORROW IN THE MORNING, DR HINES INFORMED AND STATES TO HOLD PT ONE MORE DAY, ALSO AWARE PICC CONSENT NEEDS TO BE SIGNED BY HIMSELF BEFORE PICC CAN BE INSERTED PER ZAID THE PICC RN
--- NOTE | 2020-04-01 16:53 | NUR ---
[employer] placed on will call, can be called at pick up attendant ([phone]).
--- NOTE | 2020-04-01 18:00 | NUR ---
DR GOLD AT BEDSIDE AWARE THAT DC WAS HELD, NO NEW ORDERS RECEIVED, CONT CARE
--- NOTE | 2020-04-01 18:51 | NUR ---
BLOOD PRESSURE RE-ASSESSMENT BP 159/58, PT ASYMPTOMATIC, CONT CARE
--- NOTE | 2020-04-01 19:15 | NUR ---
Opening Shift Note Received report from kieran Coffman RN. Assumed care of patient, awake and alert. No S/S of distress/SOB or pain. Instructed on POC and to call for assist PRN, will continue to monitor for changes Q1hr and PRN. Bed placed in lowest locked position with side rails up x 2 for safety and call light is within reach. Will monitor
[2020-04-01] MEDS: TPN PER PHARMACY IV NR ×11 (19:35)
[2020-04-01] MEDS ORDERED: TPN PER PHARMACY IV NR ×11 (20:00)
[2020-04-01] MEDS: SODIUM CHLORIDE 0.9% 1,000 ML IV SCH (20:00)
[2020-04-01 22:00] VITALS: BP 142/72
--- NOTE | 2020-04-01 22:00 | NUR ---
ROUNDS Assisted FOUNDRY LABORER COREROOM to changed patient. Patient is incontinent of bladder. Cream applied to groin and sacrum area for redness due to moisture. Will monitor.
[2020-04-02] MEDS: InsuLIN REG 1unit/0.01ml Soln (100units/ml) SC SCH ×4 (00:39→18:00)
--- NOTE | 2020-04-02 04:00 | NUR ---
ROUNDS Patient had a small bowel movement. Assisted MISSILE INSPECTOR to changed patient. Patient is incontinent of bowel and bladder. Cream applied to groin and sacrum area for redness due to moisture. Will monitor.
[2020-04-02] MEDS: HYDROcodone-ACET 5/325MG TAB PO PRN ×3 (04:32→15:18)
--- NOTE | 2020-04-02 05:01 | NUR ---
BARBIE DRAIN OUTPUT OUTPUT IS 85ML OF SEROUS FLUID TO BARBIE DRAIN #2, BARBIE DRAIN #1 HAS NO OUTPUT. WILL MONITOR
[2020-04-02] MEDS: ACCU-CHEK COMFORT CURVE STRIP VI SCH ×4 (06:00→18:00)
[2020-04-02] MEDS: FUROSEMIDE 20 MG/2 ML VIAL IV SCH ×2 (06:40→18:00)
[2020-04-02] MEDS: hydrALAZINE HCL 20 MG/ML VL IV PRN ×2 (06:43→14:02)
--- NOTE | 2020-04-02 06:43 | NUR ---
HYDRALAZINE 10MG GIVEN FOR BLOOD PRESSURE OF 197/78. DAY NURSE AWARE.
--- NOTE | 2020-04-02 07:30 | NUR ---
Opening Note Received pt AxOx4, patient lying in bed, sleeping, breathing even and unlabored, currently on O2 2L via NC. Pt oriented to staff and POC. Bed is locked at lowest position and side rails are up x2. Pt able to demonstrate how to assist with turning, pt repositioned at this time to take pressure off sacrum and heels. Benefits of turning every two hours discussed with the patient. Call light is within reach and the pt was advised to call if she needs anything. Patient verbalized understanding. Bed alarm on, ML to SUSANA patent and benign, 3 lument central line to left neck, asymptomatic, infusing TPN as ordered. Will continue to monitor.
[2020-04-02 07:44] LABS: Potassium 3.9 mmol/L (3.5-5.1)
[2020-04-02 07:52] LABS: Albumin 1.4 g/dL (3.4-5.0); BUN/Creatinine Ratio 50.6; Bilirubin, Total 0.6 mg/dL (0.2-1.0); Magnesium 2.1 mg/dL (1.6-2.6); Phosphorus 3.6 mg/dL (2.5-4.90); Total Protein 5.3 g/dL (6.4-8.2)
--- NOTE | 2020-04-02 08:45 | NUR ---
AT BEDSIDE DR HINES AT BEDSIDE, DISCUSSING POC WITH PT, MD AWARE OF MORNING VITALS INCLUDING BP 200/82, RE-ASSESSED AND BP 187/78, P 54, MD STATES " YES I AM RESUMING HER HOME MEDICATIONS FOR HER BLOOD PRESSURE", CONT CARE
[2020-04-02 09:00] VITALS: BP 200/82
[2020-04-02] MEDS: PANTOPRAZOLE 40 MG/10 ML VIAL INJ IV SCH (09:50)
[2020-04-02] MEDS: LEVOTHYROXINE SODIUM 100 MCG/5 ML INJ IV SCH (09:50)
[2020-04-02] MEDS: POTASSIUM CHL 20 Meq TABLET PO SCH (09:50)
[2020-04-02] MEDS: ENOXAPARIN SOD 40 MG/0.4 ML SYRINGE SC SCH (09:52)
--- NOTE | 2020-04-02 09:56 | NUR ---
PT REFUSED P.T. Signed: 04/02/20 at 57 by KIMMY DIAL PTT <Co-Signature Required> Co-Signed: 04/02/20 at 956 by Ronaldo Lew PT Addendum: 04/02/20 at 956 by KIMMY DIAL PTT Amended: Links added.
[2020-04-02] MEDS ORDERED: LOSARTAN POTASSIUM 50 MG TAB PO SCH (10:00)
[2020-04-02] MEDS ORDERED: FLORASTOR (S. BOULARDII) 250 MG CAP PO SCH (10:00)
[2020-04-02] MEDS ORDERED: amLODIPine BESYLATE 5 MG TAB PO SCH (10:00)
[2020-04-02] MEDS ORDERED: FUROSEMIDE 100 MG/10ML VIAL IV ONE (10:00)
[2020-04-02 10:34] LABS: Basophils # (auto) 0.1 10 ^3/uL (0-0.2); Eosinophils # (auto) 0.1 10 ^3/uL (0-0.8); Lymphocytes # (auto) 0.5 10 ^3/uL (0.4-5.4); Neutrophils # (auto) 6.9 10 ^3/uL (1.6-8.6); Red Cell Distribution Width 18.2 % (11.8-14.3)
[2020-04-02 10:35] LABS: Basophils % (auto) 0.9 % (0.0-2.0); Hematocrit 24.3 % (36.0-46.0); Lymphocytes % (auto) 5.7 % (10.0-50.0); Mean Corpuscular Hemoglobin 27.9 pg (28.0-32.0); Mean Corpuscular Hgb Conc. 32.9 g/dL (32.0-36.0); Mean Corpuscular Volume 84.9 fL (80.0-100.0); Monocytes # (auto) 0.8 10 ^3/uL (0-1.3); Monocytes % (auto) 9.9 % (0.0-12.0); Neutrophils % (auto) 82.5 % (37.0-80.0); Platelet Count (auto) 493 10^3/uL (140-450); Red Blood Cells 2.86 10^6/uL (4.0-5.20); White Blood Cell 8.4 10^3/uL (4.4-10.8)
--- NOTE | 2020-04-02 11:22 | NUR ---
WOUND CARE NOTE: PATIENT NOTED TO HAVE A NON BLANCHABLE REDNESS TO THE RIGHT HEEL. WOUND PHOTO TAKEN BY BEDSIDE NURSE FOR REFERENCE, NEW WOUND CONSULT ORDERED. PATIENT HAS A SMALL 1 X 1 CM NON BLANCHING AREA TO THE RIGHT HEEL. SKIN IS DARK RED, NON BLANCHING. PERIWOUND IS BRIGHT RED, PINK. SKIN REMAINS INTACT, NO DRAINING/WEEPING NOTED. LEFT OPEN TO AIR. RECOMMEND: ABIEL FOAM BOOT TO BILATERAL FEET/HEELS FOR 100 PERCENT OFFLOADING OF PRESSURE, CONTINUATION WITH ALL OTHER WOUND CARE ORDERS PREVIOUSLY PRESCRIBED BY MD. WOUND CARE TEAM WILL CONTINUE TO MONITOR. Addendum: 04/02/20 at 1650 by Mahsa Sood RN Amended: Links added.
--- NOTE | 2020-04-02 12:00 | NUR ---
DR PÉREZ AT BEDSIDE FOR THORACENTESIS WITH ASSISTANCE OF SONAM ADORNO, CONSENTS SIGNED AND IN CHART, PT AXOX4, CONT CARE
--- NOTE | 2020-04-02 12:08 | NUR ---
THORACENTESIS COMPLETE PT ASSESSED AND NO CURRENT C/O SOB OR ANY OTHER DISCOMFORT, CURRENTLY ON 2L VIA NC, CONT CARE Addendum: 04/02/20 at 1947 by Johana Riley RN DRESSING TO RIGHT BACK CDI
[2020-04-02 13:00] VITALS: BP 210/82
--- NOTE | 2020-04-02 14:00 | NUR ---
SKIN CARE PT CLEANSED, REPOSITIONED AND Z-GUARD OINTMENT APPLIED TO SACRUM AND INNER THIGHS, BLE ELEVATED ON PILLOW TO OFF LOAD PRESSURE, CONT CARE
--- NOTE | 2020-04-02 14:21 | NUR ---
PICC line placement Patient educated on need for PICC line placement. All risks and benefits explained and all questions and concerns addressed prior to procedure. Noted past medical history and allergies with no contraindications. INR and Plt counts within acceptable range. Midline in place to right upper extremity. PICC line was exchanged over guidewire using sterile technique. 20 cm midline D/C'd with catheter in tact. 5 fr PICC line inserted via right basilic vein using [employer] Tot[employer] US and Tip Location System. Sterile technique with maximum barrier precautions utilized. Blood return obtained from each of the 2 lumens and each flushed easily with NS using proper technique. PICC secured with Stat-lock; biodisc and occlusive dressing applied. Stat portable chest x-ray obtained for PICC tip placement. *Baseline Arm Circumference 28 cm. Internal length 42 cm. External length 0. PICC lot #[id number]
[2020-04-02] MEDS ORDERED: LIDOCAINE 1% (LOCAL ANESTH.) PF 5ml SDV ID ONE (14:30)
--- NOTE | 2020-04-02 14:43 | NUR ---
Okay to use PICC line Xray completed and reviewed. Okay to use PICC line. Johana ADORNO notified.
--- NOTE | 2020-04-02 15:00 | NUR ---
RE-ASSESS BP 159/67, P 62, NO DISTRESS NOTED AT THIS TIME
--- NOTE | 2020-04-02 15:32 | NUR ---
I faxed PICC line report/CXR to [facility].
--- NOTE | 2020-04-02 15:52 | NUR ---
I called [facility] and spoke with Can Patcher Pinky [phone]-she said TPN will be delivered to patient's home in the morning by [facility] (phone number [phone]) and [facility] (phone number [phone])will send nurse out tomorrow to see patient. [employer] (phone number [phone]) to picker tender helper patient at 2000-nurse Johana made aware.
--- NOTE | 2020-04-02 16:00 | NUR ---
OXYGEN REMOVED TO ASSESS PT ON ROOM AIR ASSESSED O2 ON RA @ 1650, 02 93%, RR 16, DR HINES AWARE, CONT CARE
--- NOTE | 2020-04-02 16:30 | NUR ---
Central line removal 3 lumen Central line to left neck DC'd with sterile technique, sutures removed carefully and catheter fully intact. Pressure dressing applied to site. Patient tolerated procedure well. Discharged with aftercare instructions per Dr Knox
[2020-04-02 17:18] VITALS: BP 160/80
[2020-04-02 17:52] VITALS: BP 160/80
--- NOTE | 2020-04-02 19:30 | NUR ---
Opening Shift Note Received report from Johana ADORNO. Assumed care of patient, awake and alert. No S/S of distress/SOB or pain. Instructed on POC and to call for assist PRN. Fall precaution measures in place, will continue to monitor for changes Q1hr and PRN. Patient is for discharge at 8pm, awaiting for transport. Resource KYREE Beavers did discharge wound photo and MRSA swab.
[2020-04-02] MEDS ORDERED: TPN PER PHARMACY IV NR ×12 (20:00)
--- NOTE | 2020-04-02 20:12 | NUR ---
Discharge instructions given as ordered. Encourage to follow up with PMD as instructed. All questions and concerns addressed. Patient verbalized understanding. Medication reconciliation form completed and copy given to patient. Right upper arm PICC maintained for TPN application at home. Telemetry unit returned to ICU. Patient taken by Deloris Nick to vehicle via gurney with all personal belongings. No distress noted at time of departure. Daily Harris informed of departure. Addendum: 04/02/20 at 2128 by Pedro Betts RN Addendum: Patient was discharged with 2 BARBIE drain on post op site.
[2020-04-02] MEDS ORDERED: SODIUM CHLOR 0.9% PF (SALINE LOCK) 10ML VIAL/SYR IV SCH (22:00)
[2020-08-01] MEDS ORDERED: LOP2C PO (11:42)
[2020-08-01] MEDS ORDERED: SULF400T11 PO (11:42)
[2020-08-01] MEDS ORDERED: NYS15TP TOP (12:13)
[2020-08-01] MEDS ORDERED: CHL4PW PO (12:24)
[2020-08-01] MEDS ORDERED: SPIR25TA8 PO (12:24)
[2020-08-01] MEDS ORDERED: HYDR50TA15 PO (12:24)
[2020-08-01] MEDS ORDERED: FURO20TA3 PO (12:24)
[2020-08-01] MEDS ORDERED: APIX2.5T PO (12:24)
[2020-08-01] MEDS ORDERED: DEXA4TAB PO (12:24)
[2020-08-01] MEDS ORDERED: SODI650T PO (12:24)
[2020-08-01] MEDS ORDERED: LEVO112T4 PO (12:24)
[2020-08-01] MEDS ORDERED: POTA10TA32 PO (12:24)
[2020-08-01] MEDS ORDERED: FAMO-12 PO (12:24)
[2020-08-01] MEDS ORDERED: FLUC150T38 PO (17:55)
== END 2020-04-02 20:12 | disposition home or self-care (01) | DRG 329 ==
LOC: ER 17:20 → OVERFLOW 17:21 → WEST WING 03-09 01:54 → TELE-WESTW 03-13 16:15 → ICU WEST 03-15 18:27 → DOU IN ICU 03-24 14:37 → TELE-WESTW 03-25 14:55
PROVIDERS: ADMIT Nurse Practitioner; ATTEND Internal Medicine
PROC: 0DJD8ZZ Inspection of Lower Intestinal Tract, Via Natural or Artificial Opening Endoscopic (ICD-10-PCS; principal; 2020-03-13 09:58)
PROC: 02HV33Z Insertion of Infusion Device into Superior Vena Cava, Percutaneous Approach (ICD-10-PCS; 2020-03-15)
PROC: B548ZZA Ultrasonography of Superior Vena Cava, Guidance (ICD-10-PCS; 2020-03-15)
PROC: 0DBE0ZZ Excision of Large Intestine, Open Approach (ICD-10-PCS; 2020-03-15)
PROC: 0DB80ZZ Excision of Small Intestine, Open Approach (ICD-10-PCS; 2020-03-15)
PROC: 0TQB0ZZ Repair Bladder, Open Approach (ICD-10-PCS; 2020-03-15)
PROC: 30233N1 Transfusion of Nonautologous Red Blood Cells into Peripheral Vein, Percutaneous Approach (ICD-10-PCS; 2020-03-16)
PROC: 5A1955Z Respiratory Ventilation, Greater than 96 Consecutive Hours (ICD-10-PCS; 2020-03-22)
PROC: 0BH17EZ Insertion of Endotracheal Airway into Trachea, Via Natural or Artificial Opening (ICD-10-PCS; 2020-03-22)
PROC: 0W993ZX Drainage of Right Pleural Cavity, Percutaneous Approach, Diagnostic (ICD-10-PCS; 2020-04-02)
DX: K56.609 Unspecified intestinal obstruction, unspecified as to partial versus complete obstruction (principal); K65.9 Peritonitis, unspecified; J15.211 Pneumonia due to Methicillin susceptible Staphylococcus aureus; K63.1 Perforation of intestine (nontraumatic); J96.20 Acute and chronic respiratory failure, unspecified whether with hypoxia or hypercapnia; I74.5 Embolism and thrombosis of iliac artery; E87.2 Acidosis; N17.9 Acute kidney failure, unspecified; K56.50 Intestinal adhesions [bands], unspecified as to partial versus complete obstruction; K80.20 Calculus of gallbladder without cholecystitis without obstruction; N18.3 Chronic kidney disease, stage 3 (moderate); I25.10 Atherosclerotic heart disease of native coronary artery without angina pectoris; E03.9 Hypothyroidism, unspecified; K21.9 Gastro-esophageal reflux disease without esophagitis; E78.5 Hyperlipidemia, unspecified; K64.8 Other hemorrhoids; M10.9 Gout, unspecified; M19.90 Unspecified osteoarthritis, unspecified site; I12.9 Hypertensive chronic kidney disease with stage 1 through stage 4 chronic kidney disease, or unspecified chronic kidney disease; Z85.41 Personal history of malignant neoplasm of cervix uteri; Z95.5 Presence of coronary angioplasty implant and graft; Z79.899 Other long term (current) drug therapy; Z79.82 Long term (current) use of aspirin; Z90.710 Acquired absence of both cervix and uterus; Z82.49 Family history of ischemic heart disease and other diseases of the circulatory system; N32.89 Other specified disorders of bladder; R00.1 Bradycardia, unspecified; D63.1 Anemia in chronic kidney disease
CPT/HCPCS: 36415; 36569; 36600; 71045; 74018; 74176; 74177; 74250; 74270; 74430; 76604; 76705; 80048; 80053; 80202; 81001; 82040; 82805; 82962; 83540; 83550; 83690; 83735; 83986; 84100; 84132; 84443; 84478; 85007; 85014; 85018; 85025; 85027; 85610; 85730; 86850; 86900; 86901; 86920; 87040; 87070; 87077; 87081; 87186; 87205; 87493; 89051; 92610; 93005; 93970; 94002; 94003; 94640; 96361; 96374; 96375; 96376; 97110; 97116; 97163; 97530; C9113; G0378; J0330; J0690; J1815; J2250; J2405; J2543; J2704; J3480; J3490; J7131

== ENCOUNTER 2020-04-03 17:19 | Inpatient (IN) | payer OTHER ==
[~2020-04-03] VITALS: Ht 157.5 cm; Wt 70.7 kg
[~2020-04-03 17:19] MED LIST changes: -AMLO10TA13 PO; -ASPI-231 PO; -FURO20TA3 PO; -LOSA-39 PO; -RANI-435 PO; -SPIR50TA5 PO
[2020-04-03] MEDS ORDERED: hydrALAZINE HCL 20 MG/ML VL IV ONE (18:15)
[2020-04-03 19:23] LABS: Basophils # (auto) 0.1 10 ^3/uL (0-0.2); Hemoglobin 8.5 g/dL (12.2-16.2); Lymphocytes # (auto) 0.6 10 ^3/uL (0.4-5.4); Lymphocytes % (auto) 6.2 % (10.0-50.0); White Blood Cell 10.1 10^3/uL (4.4-10.8)
[2020-04-03 19:30] LABS: Basophils % (auto) 1.2 % (0.0-2.0); Eosinophils % (auto) 0.6 % (0.0-7.0); INR 1.17 (0.9-1.15); Monocytes % (auto) 7.2 % (0.0-12.0); Neutrophils % (auto) 84.8 % (37.0-80.0); Nucleated Red Blood Cells % 0.1 %; Partial Thromboplastin Time 27.9 sec (23.64-32.05)
[2020-04-03] MEDS ORDERED: cefTRIAXone 1GM/50ML D5W 50 ML IV ONE (19:30)
[2020-04-03 19:31] LABS: Neutrophils # (auto) 8.6 10 ^3/uL (1.6-8.6)
[2020-04-03 19:32] LABS: Eosinophils # (auto) 0.1 10 ^3/uL (0-0.8); Monocytes # (auto) 0.7 10 ^3/uL (0-1.3); Red Blood Cells 2.83 10^6/uL (4.0-5.20)
[2020-04-03 19:33] LABS: Mean Corpuscular Hgb Conc. 32.8 g/dL (32.0-36.0); Mean Corpuscular Volume 91.6 fL (80.0-100.0); Platelet Count (auto) 502 10^3/uL (140-450); Red Cell Distribution Width 19.5 % (11.8-14.3)
[2020-04-03 19:36] LABS: Albumin 1.4 g/dL (3.4-5.0); Anion Gap 9 (5-15); Blood Urea Nitrogen 34 mg/dL (7-18); Calcium 7.1 mg/dL (8.5-10.1); Carbon Dioxide 25 mmol/L (21-32); Chloride 99 mmol/L (98-107); Potassium 5.1 mmol/L (3.5-5.1); Sodium 133 mmol/L (136-145)
[2020-04-03 19:44] LABS: Alanine Aminotransferase 29 U/L (13-56); Alkaline Phosphatase 163 U/L (45-117); Aspartate Aminotransferase 29 U/L (15-37); BUN/Creatinine Ratio 33.3; Bilirubin, Total 0.5 mg/dL (0.2-1.0); GFR African American 66 mL/min; GFR Non-African American 55 mL/min; Total Protein 5.5 g/dL (6.4-8.2)
[2020-04-03 20:28] LABS: Urine Bacteria MOD /hpf (None Seen); Urine Blood 2+ /uL (Negative); Urine WBC 3166 /hpf (0 - 5); Urine WBC Clumps PRESENT /hpf (None Seen)
[2020-04-03 20:35] LABS: Urine Specific Gravity 1.015 (1.001-1.035)
[2020-04-03 21:11] LABS: Glucose 783 mg/dL (74-106)
[2020-04-03] MEDS ORDERED: SODIUM CHLORIDE 0.9% 1,000 ML IV SCH (23:26)
[2020-04-03] MEDS ORDERED: MORPHINE SULF INJ 2 MG/ML SYRINGE 1ML IV PRN (23:30)
[2020-04-03] MEDS ORDERED: NITROGLYCERIN 0.4 MG SL TAB SL PRN (23:30)
[2020-04-03] MEDS ORDERED: ONDANSETRON HCL 4 MG/2 ML VIAL IV PRN (23:30)
[2020-04-03] MEDS ORDERED: DEXTROSE (50%) 50ML SYRG IV PRN (23:30)
[2020-04-03] MEDS ORDERED: MORPHINE SULFATE 4 MG/ML SYR/VIAL IV PRN (23:30)
[2020-04-04] VITALS (7 sets, daily range): BP systolic 165–206; BP diastolic 68–81
[2020-04-04] MEDS: hydrALAZINE HCL 20 MG/ML VL IV PRN ×4 (01:09→22:31)
[2020-04-04] MEDS ORDERED: ALPRAZolam 0.25 MG TAB PO ONE (03:00)
[2020-04-04] MEDS ORDERED: hydrALAZINE HCL 20 MG/ML VL IV ONE (03:00)
[2020-04-04] MEDS ORDERED: TPN PER PHARMACY 0 ML IV SCH (03:00)
[2020-04-04] MEDS: ACCU-CHEK COMFORT CURVE STRIP VI SCH ×3 (06:48→17:00)
[2020-04-04] MEDS ORDERED: InsuLIN REG 1unit/0.01ml Soln (100units/ml) SC SCH ×2 (07:00→22:00)
[2020-04-04] MEDS: cefTRIAXone 1GM/50ML D5W 50 ML IV SCH (08:50)
[2020-04-04] MEDS: PANTOPRAZOLE 40 MG/10 ML VIAL INJ IV SCH (08:51)
[2020-04-04] MEDS ORDERED: ENOXAPARIN SOD 30 MG/0.3 ML SYRINGE SC SCH (10:00)
[2020-04-04 10:44] LABS: Eosinophils # (auto) 0 10 ^3/uL (0-0.8); Monocytes # (auto) 0.6 10 ^3/uL (0-1.3)
[2020-04-04 10:46] LABS: Basophils # (auto) 0.1 10 ^3/uL (0-0.2); Basophils % (auto) 0.6 % (0.0-2.0); Eosinophils % (auto) 0.6 % (0.0-7.0); Hematocrit 24.4 % (36.0-46.0); Hemoglobin 8.1 g/dL (12.2-16.2); Lymphocytes # (auto) 0.5 10 ^3/uL (0.4-5.4); Lymphocytes % (auto) 5.7 % (10.0-50.0); Mean Corpuscular Hemoglobin 28.2 pg (28.0-32.0); Mean Corpuscular Hgb Conc. 33.2 g/dL (32.0-36.0); Mean Corpuscular Volume 84.8 fL (80.0-100.0); Monocytes % (auto) 7.4 % (0.0-12.0); Neutrophils # (auto) 7.5 10 ^3/uL (1.6-8.6); Neutrophils % (auto) 85.7 % (37.0-80.0); Platelet Count (auto) 487 10^3/uL (140-450); Red Blood Cells 2.88 10^6/uL (4.0-5.20); Red Cell Distribution Width 18.7 % (11.8-14.3); White Blood Cell 8.8 10^3/uL (4.4-10.8)
[2020-04-04] MEDS: hydrALAZINE HCL 25 MG TAB PO SCH ×2 (10:50→16:30)
[2020-04-04] MEDS: SODIUM CHLORIDE 0.9% 1,000 ML IV SCH (10:50)
[2020-04-04 10:59] LABS: Albumin 1.4 g/dL (3.4-5.0); Calcium 7.4 mg/dL (8.5-10.1); Magnesium 2.1 mg/dL (1.6-2.6); Potassium 3.2 mmol/L (3.5-5.1)
[2020-04-04 11:04] LABS: BUN/Creatinine Ratio 45.9; Bilirubin, Total 0.3 mg/dL (0.2-1.0); Phosphorus 2.7 mg/dL (2.5-4.90); Pre Albumin 11.8 mg/dL (20.0-40.0); Total Protein 5.5 g/dL (6.4-8.2)
[2020-04-04] MEDS: POTASSIUM CHL 20MEQ/100ML 100 ML IV SCH ×2 (12:03→13:52)
[2020-04-04] MEDS ORDERED: CLINIMIX PER PHARMACY IV NR (13:30)
[2020-04-04] MEDS ORDERED: amLODIPine BESYLATE 5 MG TAB PO ONE (18:00)
[2020-04-04] MEDS ORDERED: LOSARTAN POTASSIUM 50 MG TAB PO ONE (18:00)
[2020-04-04] MEDS: TPN PER PHARMACY IV NR ×10 (20:50)
[2020-04-04] MEDS: ATORVASTATIN 20 MG TAB PO SCH (22:30)
[2020-04-05] MEDS ORDERED: DEXTROSE (50%) 50ML SYRG IV SCH
[2020-04-05] MEDS: ACCU-CHEK COMFORT CURVE STRIP VI SCH ×5 (00:29→23:56)
[2020-04-05] MEDS: InsuLIN REG 1unit/0.01ml Soln (100units/ml) SC SCH ×5 (00:39→23:58)
[2020-04-05] MEDS: hydrALAZINE HCL 20 MG/ML VL IV PRN (05:05)
[2020-04-05 05:18] VITALS: BP 185/74
[2020-04-05 06:44] LABS: Hematocrit 26.2 % (36.0-46.0); Hemoglobin 8.8 g/dL (12.2-16.2); Mean Corpuscular Hgb Conc. 33.4 g/dL (32.0-36.0); Mean Corpuscular Volume 86.8 fL (80.0-100.0); Platelet Count (auto) 477 10^3/uL (140-450); Red Blood Cells 3.02 10^6/uL (4.0-5.20); Red Cell Distribution Width 18.9 % (11.8-14.3); White Blood Cell 8.1 10^3/uL (4.4-10.8)
[2020-04-05] MEDS ORDERED: hydrALAZINE HCL 20 MG/ML VL IV PRN ×2 (06:45)
[2020-04-05 06:53] LABS: Basophils % (manual) 0 (0.0-2.0); Blast Cells 0; Eosinophils % (manual) 0 (0-7); Promyelocytes % 0; Reactive Lymphocytes 0
[2020-04-05 06:59] LABS: Potassium 3.4 mmol/L (3.5-5.1)
[2020-04-05 07:08] LABS: Albumin 1.5 g/dL (3.4-5.0); Bilirubin, Total 0.5 mg/dL (0.2-1.0); Calcium 7.5 mg/dL (8.5-10.1); Magnesium 1.9 mg/dL (1.6-2.6); Phosphorus 2.6 mg/dL (2.5-4.90); Total Protein 5.8 g/dL (6.4-8.2)
[2020-04-05] MEDS: LEVOTHYROXINE SODIUM 100 MCG TAB PO SCH (07:11)
[2020-04-05] MEDS: MORPHINE SULF INJ 2 MG/ML SYRINGE 1ML IV PRN ×2 (07:12→13:42)
[2020-04-05 07:27] LABS: Band Neutrophils % (manual) 2; Lymphocytes % (manual) 9 (10.0-50.0); Metamyelocytes % 1; Monocytes % (manual) 10 (0-12); Myelocytes % 1
[2020-04-05] MEDS ORDERED: POTASSIUM CHL 20MEQ/100ML 100 ML IV ONE (08:45)
[2020-04-05 09:30] VITALS: BP 182/73
[2020-04-05] MEDS ORDERED: amLODIPine BESYLATE 5 MG TAB PO SCH (10:00)
[2020-04-05] MEDS: PANTOPRAZOLE 40 MG/10 ML VIAL INJ IV SCH (10:10)
[2020-04-05] MEDS: FUROSEMIDE 20 MG/2 ML VIAL IV SCH (10:10)
[2020-04-05] MEDS: LOSARTAN POTASSIUM 50 MG TAB PO SCH (10:11)
[2020-04-05] MEDS: NIFEdipine ER 30 MG TAB PO SCH (10:11)
[2020-04-05] MEDS: cefTRIAXone 1GM/50ML D5W 50 ML IV SCH (10:12)
[2020-04-05] MEDS: SODIUM CHLORIDE 0.9% 1,000 ML IV SCH (10:30)
[2020-04-05] MEDS ORDERED: IOTHALAMATE MEGLUMINE INJ 250ML BOT UR ONE (12:10)
[2020-04-05 13:00] VITALS: BP 193/79
[2020-04-05] MEDS: hydrALAZINE HCL 25 MG TAB PO SCH ×2 (13:41→22:08)
[2020-04-05 16:57] VITALS: BP 157/76
[2020-04-05] MEDS: TPN PER PHARMACY IV NR ×10 (19:44)
[2020-04-05] MEDS ORDERED: TPN PER PHARMACY IV NR ×11 (20:00)
[2020-04-05 22:00] VITALS: BP 146/61
[2020-04-05] MEDS: ATORVASTATIN 20 MG TAB PO SCH (22:08)
[2020-04-05 23:58] VITALS: BP 150/60
[2020-04-06] MEDS ORDERED: TEMAZEPAM 15 MG CAP PO ONE (00:15)
[2020-04-06 05:00] VITALS: BP 151/64
[2020-04-06] MEDS: ACCU-CHEK COMFORT CURVE STRIP VI SCH ×3 (05:53→18:00)
[2020-04-06] MEDS: InsuLIN REG 1unit/0.01ml Soln (100units/ml) SC SCH ×3 (05:53→18:00)
[2020-04-06] MEDS: hydrALAZINE HCL 25 MG TAB PO SCH ×2 (05:53→14:00)
[2020-04-06] MEDS: LEVOTHYROXINE SODIUM 100 MCG TAB PO SCH (05:54)
[2020-04-06 06:05] LABS: Hemoglobin 9.1 g/dL (12.2-16.2)
[2020-04-06 06:08] LABS: Hematocrit 27.6 % (36.0-46.0); Mean Corpuscular Hemoglobin 27.8 pg (28.0-32.0); Mean Corpuscular Hgb Conc. 32.8 g/dL (32.0-36.0); Mean Corpuscular Volume 84.9 fL (80.0-100.0); Platelet Count (auto) 470 10^3/uL (140-450); Red Blood Cells 3.26 10^6/uL (4.0-5.20); Red Cell Distribution Width 18.6 % (11.8-14.3); White Blood Cell 7.1 10^3/uL (4.4-10.8)
[2020-04-06 06:23] LABS: Potassium 3.4 mmol/L (3.5-5.1)
[2020-04-06 06:30] LABS: Albumin 1.5 g/dL (3.4-5.0); BUN/Creatinine Ratio 57.5; Bilirubin, Total 0.4 mg/dL (0.2-1.0); Calcium 7.6 mg/dL (8.5-10.1); Phosphorus 3.5 mg/dL (2.5-4.90); Total Protein 5.9 g/dL (6.4-8.2)
[2020-04-06 07:01] LABS: Basophils % (manual) 0 (0.0-2.0); Blast Cells 0; Eosinophils % (manual) 0 (0-7); Metamyelocytes % 0; Myelocytes % 0; Promyelocytes % 0; Reactive Lymphocytes 0
[2020-04-06 07:44] LABS: Band Neutrophils % (manual) 1; Lymphocytes % (manual) 18 (10.0-50.0); Monocytes % (manual) 3 (0-12)
[2020-04-06 08:52] VITALS: BP 145/78
[2020-04-06] MEDS: PANTOPRAZOLE 40 MG/10 ML VIAL INJ IV SCH (09:01)
[2020-04-06] MEDS: FUROSEMIDE 20 MG/2 ML VIAL IV SCH (09:02)
[2020-04-06] MEDS: NIFEdipine ER 30 MG TAB PO SCH (09:02)
[2020-04-06] MEDS: cefTRIAXone 1GM/50ML D5W 50 ML IV SCH (09:02)
[2020-04-06] MEDS: LOSARTAN POTASSIUM 50 MG TAB PO SCH (09:04)
[2020-04-06] MEDS: SODIUM CHLORIDE 0.9% 1,000 ML IV SCH (10:30)
[2020-04-06] MEDS ORDERED: POTASSIUM CHL 20MEQ/100ML 100 ML IV ONE (10:30)
[2020-04-06 13:07] VITALS: BP 138/60
[2020-04-06 17:23] VITALS: BP 121/70
== END 2020-04-06 20:05 | disposition home health service (06) | DRG 698 ==
LOC: EDBD 17:19 → ER 17:19 → TELE 17:20 → TELE-WESTW 04-04 01:45
PROVIDERS: ADMIT Hospitalist; ATTEND Hospitalist
PROC: BT101ZZ Fluoroscopy of Bladder using Low Osmolar Contrast (ICD-10-PCS; principal; 2020-04-05)
DX: T83.83XA Hemorrhage due to genitourinary prosthetic devices, implants and grafts, initial encounter (principal); J18.9 Pneumonia, unspecified organism; N39.0 Urinary tract infection, site not specified; K56.609 Unspecified intestinal obstruction, unspecified as to partial versus complete obstruction; I16.1 Hypertensive emergency; E11.65 Type 2 diabetes mellitus with hyperglycemia; N18.9 Chronic kidney disease, unspecified; E11.22 Type 2 diabetes mellitus with diabetic chronic kidney disease; I25.10 Atherosclerotic heart disease of native coronary artery without angina pectoris; K21.9 Gastro-esophageal reflux disease without esophagitis; E78.5 Hyperlipidemia, unspecified; I12.9 Hypertensive chronic kidney disease with stage 1 through stage 4 chronic kidney disease, or unspecified chronic kidney disease; D64.9 Anemia, unspecified; Z66 Do not resuscitate; E03.9 Hypothyroidism, unspecified; M19.90 Unspecified osteoarthritis, unspecified site; M10.9 Gout, unspecified; E05.90 Thyrotoxicosis, unspecified without thyrotoxic crisis or storm; F32.9 Major depressive disorder, single episode, unspecified; Z90.710 Acquired absence of both cervix and uterus; Z79.899 Other long term (current) drug therapy; Z79.82 Long term (current) use of aspirin; Z95.1 Presence of aortocoronary bypass graft; Z82.49 Family history of ischemic heart disease and other diseases of the circulatory system; Z85.41 Personal history of malignant neoplasm of cervix uteri; Z98.61 Coronary angioplasty status; Y92.89 Other specified places as the place of occurrence of the external cause
CPT/HCPCS: 36415; 71045; 74176; 74430; 80048; 80053; 81001; 82040; 82962; 83036; 83605; 83690; 83735; 84100; 84478; 84484; 85007; 85025; 85027; 85610; 85730; 87040; 87081; 87086; 87088; 87186; 87493; 93005; 96365; 96375; C9113; G0378; J0696; J1815; J3480; J7131

== ENCOUNTER 2020-06-11 20:19 | Inpatient (IN) | payer OTHER ==
[~2020-06-11] VITALS: Ht 160 cm; Wt 56.8 kg
[2020-06-11 20:00] VITALS: BP 140/58
[2020-06-11 22:03] LABS: Basophils # (auto) 0 10 ^3/uL (0-0.2); Eosinophils # (auto) 0 10 ^3/uL (0-0.8); Lymphocytes # (auto) 0.9 10 ^3/uL (0.4-5.4); White Blood Cell 6.6 10^3/uL (4.4-10.8)
[2020-06-11 22:05] LABS: Basophils % (auto) 0.2 % (0.0-2.0); Eosinophils % (auto) 0.1 % (0.0-7.0); Hematocrit 35.1 % (36.0-46.0); Hemoglobin 10.8 g/dL (12.2-16.2); Lymphocytes % (auto) 13.9 % (10.0-50.0); Mean Corpuscular Hemoglobin 28.9 pg (28.0-32.0); Mean Corpuscular Hgb Conc. 30.8 g/dL (32.0-36.0); Mean Corpuscular Volume 93.9 fL (80.0-100.0); Monocytes # (auto) 0.4 10 ^3/uL (0-1.3); Monocytes % (auto) 6.7 % (0.0-12.0); Neutrophils # (auto) 5.2 10 ^3/uL (1.6-8.6); Neutrophils % (auto) 79.1 % (37.0-80.0); Nucleated Red Blood Cells % 0.1 %; Platelet Count (auto) 213 10^3/uL (140-450); Red Blood Cells 3.74 10^6/uL (4.0-5.20); Red Cell Distribution Width 20.4 % (11.8-14.3)
[2020-06-11 22:19] LABS: INR 1.24 (0.9-1.15); Partial Thromboplastin Time 39.3 sec (23.0-31.2)
[2020-06-11 22:23] LABS: Albumin 1.9 g/dL (3.4-5.0); BUN/Creatinine Ratio 33.8; Calcium 7.9 mg/dL (8.5-10.1); Magnesium 1.3 mg/dL (1.6-2.6); Potassium 4.4 mmol/L (3.5-5.1)
[2020-06-11 22:28] LABS: Bilirubin, Total 0.4 mg/dL (0.2-1.0); Total Protein 5.5 g/dL (6.4-8.2)
[2020-06-11] MEDS ORDERED: SODIUM BICARBONATE 8.4 % INJ 50ML VIAL IV ONE (23:15)
[2020-06-12] MEDS ORDERED: SODIUM BICARBONATE 50ML VIAL 100 ML in D5W 5% 1,000 ML IV ONE ×2
[2020-06-12] MEDS ORDERED: SODIUM BICARBONATE 8.4 % INJ 50ML VIAL IV ONE (00:48)
[2020-06-12 01:44] LABS: Urine Bacteria NONE SEEN /hpf (None Seen); Urine Blood 2+ /uL (Negative); Urine WBC 3249 /hpf (0 - 5); Urine WBC Clumps PRESENT /hpf (None Seen)
[2020-06-12] MEDS: MAGNESIUM SULFATE 1GM/100ML 100 ML IV SCH ×4 (02:00→04:10)
[2020-06-12] MEDS ORDERED: ONDANSETRON ODT 4 MG TAB PO PRN (02:00)
[2020-06-12] MEDS: FAMOTIDINE 20 MG TAB PO SCH ×3 (02:23→21:02)
[2020-06-12] MEDS: hydrALAZINE HCL 25 MG TAB PO SCH ×4 (02:24→21:01)
[2020-06-12] MEDS ORDERED: DIPHENOXYLATE W/ATROPINE 2.5 MG TAB PO PRN (06:00)
[2020-06-12] MEDS: cefTRIAXone 1GM/50ML D5W 50 ML IV SCH (06:53)
[2020-06-12] MEDS ORDERED: CHOLESTYRAMINE 4 GM POWDER PO SCH (07:00)
[2020-06-12] MEDS: LEVOTHYROXINE SODIUM 112 MCG TAB PO SCH (07:48)
[2020-06-12] MEDS ORDERED: ENOXAPARIN SOD 40 MG/0.4 ML SYRINGE SC SCH (10:00)
[2020-06-12] MEDS ORDERED: MAGNESIUM SULFATE 1GM/100ML 100 ML IV SCH (10:00)
[2020-06-12] MEDS ORDERED: APIXABAN 5 MG TAB PO SCH (10:00)
[2020-06-12] MEDS: NYSTATIN TOPICAL CREAM 15GM TOP SCH ×2 (10:00→21:02)
--- NOTE | 2020-06-12 10:02 | NUR ---
Telemetry admit from [facility] admitted to Telemetry unit after SBAR received. Patient oriented to Rina Palomares, primary RN, unit, room, bed, and unit policies regarding patient care and visiting hours. Patient now on continuous telemetry monitoring, tele box #[id number] and telemetry reading on arrival to unit is paced at 60. Patient placed on bedside oxygen, weighed by bedscale and encouraged to call if they need something. All questions and concerns addressed, patient verbalized understanding.
--- NOTE | 2020-06-12 10:15 | NUR ---
Vital signs BP 130/68, HR60, spo2 100% RA, patient alert and oriented x3. No s/o pain, no s/s of distress noted stated. Fall precautions in place. Will continue to monitor.
[2020-06-12] MEDS: amLODIPine BESYLATE 5 MG TAB PO SCH (11:09)
[2020-06-12] MEDS: APIXABAN 5 MG TAB PO SCH ×2 (11:09→21:02)
[2020-06-12 11:33] LABS: Basophils # (auto) 0 10 ^3/uL (0-0.2); Basophils % (auto) 0.5 % (0.0-2.0); Eosinophils # (auto) 0 10 ^3/uL (0-0.8); Eosinophils % (auto) 0.5 % (0.0-7.0); Hematocrit 31.6 % (36.0-46.0); Hemoglobin 10.3 g/dL (12.2-16.2); Lymphocytes # (auto) 0.7 10 ^3/uL (0.4-5.4); Lymphocytes % (auto) 16.8 % (10.0-50.0); Mean Corpuscular Hemoglobin 29.3 pg (28.0-32.0); Mean Corpuscular Hgb Conc. 32.7 g/dL (32.0-36.0); Mean Corpuscular Volume 89.5 fL (80.0-100.0); Monocytes # (auto) 0.3 10 ^3/uL (0-1.3); Monocytes % (auto) 8.3 % (0.0-12.0); Neutrophils # (auto) 3.1 10 ^3/uL (1.6-8.6); Neutrophils % (auto) 73.9 % (37.0-80.0); Platelet Count (auto) 195 10^3/uL (140-450); Red Blood Cells 3.53 10^6/uL (4.0-5.20); White Blood Cell 4.2 10^3/uL (4.4-10.8)
[2020-06-12 11:36] LABS: Red Cell Distribution Width 20.5 % (11.8-14.3)
[2020-06-12] MEDS ORDERED: APIX2.5T PO (11:41)
[2020-06-12] MEDS ORDERED: AMLO5TAB15 PO (11:42)
[2020-06-12] MEDS ORDERED: CHL4PW GT (11:42)
[2020-06-12] MEDS ORDERED: FAMO-12 PO (11:43)
[2020-06-12 11:52] LABS: Magnesium 2.6 mg/dL (1.6-2.6); Phosphorus 1.6 mg/dL (2.5-4.90)
[2020-06-12 11:58] LABS: Albumin 1.9 g/dL (3.4-5.0); Calcium 7.7 mg/dL (8.5-10.1); Potassium 3.4 mmol/L (3.5-5.1)
[2020-06-12 12:01] LABS: BUN/Creatinine Ratio 26.5; Bilirubin, Total 0.4 mg/dL (0.2-1.0)
[2020-06-12] MEDS ORDERED: LOPERAMIDE HCL 2 MG CAP PO PRN (12:15)
[2020-06-12] MEDS: SODIUM BICARBONATE 50ML VIAL 75 ML in SOD CHL 0.45% 1,000 ML IV SCH ×2 (13:30→22:57)
--- NOTE | 2020-06-12 13:56 | NUR ---
URINE SPECIMEN URINE SAMPLE COLLECTED AND SENT TO LAB.
--- NOTE | 2020-06-12 17:55 | NUR ---
Rounds Patient is comfortably sitting up, eating dinner. IV fluids running at 80mls/hr, on RA, RR even and unlabored. Bed at lowest locked position and call light within reach.
[2020-06-12] MEDS: CHOLESTYRAMINE 4 GM POWDER PO SCH ×2 (18:07→22:01)
--- NOTE | 2020-06-12 18:50 | NUR ---
closing note patient is comfortably resting in bed. will endorse care to NOC RN.
--- NOTE | 2020-06-12 19:30 | NUR ---
Opening Shift Note Assumed care of patient, awake and alert. No S/S of distress/SOB or pain. Instructed on POC and to call for assist PRN, will continue to monitor for changes Q1hr and PRN.
[2020-06-12 20:00] VITALS: BP 140/58
[2020-06-12 22:00] VITALS: BP 140/58
[2020-06-13 05:00] VITALS: BP 152/64
[2020-06-13] MEDS: hydrALAZINE HCL 25 MG TAB PO SCH ×3 (05:02→21:55)
[2020-06-13] MEDS: SODIUM BICARBONATE 50ML VIAL 75 ML in SOD CHL 0.45% 1,000 ML IV SCH (05:03)
[2020-06-13 05:44] LABS: Basophils # (auto) 0 10 ^3/uL (0-0.2); Basophils % (auto) 0.2 % (0.0-2.0); Eosinophils # (auto) 0 10 ^3/uL (0-0.8); Eosinophils % (auto) 0.9 % (0.0-7.0); Hematocrit 29.2 % (36.0-46.0); Hemoglobin 9.6 g/dL (12.2-16.2); Lymphocytes % (auto) 22.8 % (10.0-50.0); Mean Corpuscular Hemoglobin 28.7 pg (28.0-32.0); Mean Corpuscular Hgb Conc. 32.8 g/dL (32.0-36.0); Mean Corpuscular Volume 87.6 fL (80.0-100.0); Monocytes # (auto) 0.4 10 ^3/uL (0-1.3); Monocytes % (auto) 9.1 % (0.0-12.0); Neutrophils # (auto) 2.8 10 ^3/uL (1.6-8.6); Nucleated Red Blood Cells % 0.2 %; Platelet Count (auto) 161 10^3/uL (140-450); Red Blood Cells 3.33 10^6/uL (4.0-5.20); White Blood Cell 4.2 10^3/uL (4.4-10.8)
[2020-06-13] MEDS: CHOLESTYRAMINE 4 GM POWDER PO SCH ×4 (05:51→21:56)
[2020-06-13 05:57] LABS: BUN/Creatinine Ratio 30.8; Calcium 7.2 mg/dL (8.5-10.1); Phosphorus 1.7 mg/dL (2.5-4.90); Potassium 3.4 mmol/L (3.5-5.1)
[2020-06-13] MEDS: LEVOTHYROXINE SODIUM 112 MCG TAB PO SCH (06:42)
[2020-06-13 06:57] LABS: Red Cell Distribution Width 20.1 % (11.8-14.3)
--- NOTE | 2020-06-13 08:00 | NUR ---
OPENING SHIFT NOTE ASSUMED CARE OF PATIENT AWAKE AND ALERT X2. NO S/S OF DISTRESS NOTED OR COMPLAINTS OF PAIN. UPON ASSESSMENT PATIENT FOUND TO BE LAYING IN A LARGE AMOUNT OF DRYING FECES. BED BATH AND COMPLETE LINEN CHANGE PROVIDED. PATIENT UPDATED ON POC AND PATIENT VERBALIZED UNDERSTANDING. BED IS IN LOWEST, LOCKED POSITION WITH SIDE RAILS UP X2, CALL LIGHT WITHIN REACH, AND BED ALARM ON FOR SAFETY. WILL CONTINUE TO MONITOR Q1H AND PRN.
[2020-06-13 09:00] VITALS: BP 138/58
[2020-06-13] MEDS: cefTRIAXone 1GM/50ML D5W 50 ML IV SCH (10:02)
[2020-06-13] MEDS: amLODIPine BESYLATE 5 MG TAB PO SCH (10:03)
[2020-06-13] MEDS: NYSTATIN TOPICAL CREAM 15GM TOP SCH ×2 (10:03→21:56)
[2020-06-13] MEDS: APIXABAN 5 MG TAB PO SCH ×2 (10:03→21:56)
[2020-06-13] MEDS: FAMOTIDINE 20 MG TAB PO SCH ×2 (10:03→21:56)
[2020-06-13] MEDS ORDERED: SODIUM BICARBONATE 50ML VIAL 75 ML, POTASSIUM CHLORIDE 20 MEQ in SOD CHL 0.45% 1,000 ML IV SCH (11:00)
[2020-06-13] MEDS ORDERED: POTASSIUM PHOSPHATE 44 MEQ in D5W 5% 250 ML IV ONE (11:15)
--- NOTE | 2020-06-13 11:43 | NUR ---
WOUND CARE NOTE: Wound care in to see patient per wound care request regarding multiple skin integrity issue that are noted present on admission. Bedside nurse took photograph of patient's wounds upon admission for reference. Patient is 84 years old female with admitting diagnosis of Hyperchloremic. Patient is resting in bed in Rm. 290B. Patient is awake, alert and oriented to self with confusion. Patient is in no stated pain at this time and she appears to be in no pain using Pelaez Hernandez Faces Pain Scale. She needs assistance in turning and repositioning and her Damon score is 12. Skin assessment done with the assistance of patient's nurse, KYREE Sellers. Patient came in with complains of diarrhea. Her groins, inner thighs, sacral, buttocks and posterior thighs noted with moist erythremic skin. Patient passed small amount of soft stool, keiko care given. She receiving BID application of Nystatin powder to groins intertrigo per MD order. Applied Z Guard cream to sacral, buttocks and covered upper sacrum with with Opti foam gentle dressing. Patient's bilateral heel also noted with non-blanchable redness consistent with stage 1 pressure injury. Staff is elevating patient's heels on pillows.Patient has scabbed wound, incision to lower abdomen history of exploratory laparotomy with C/D/I dressing. Patient tolerated well, repositioned for comfort, redistributed pressure points with pillows. Bed in low position, call ryan within reach, bed alarm on. RECOMMENDATION: Nursing to continue with BID/PRN cleaning and application of Nystatin powder to groin intertrigo, Z Guard cream to sacral, buttocks per MD order, Dietary consult, frequent turning and repositioning schedule as condition permits, redistribute pressure points with pillows, elevate heels on pillows, air mattress (ordered), continue monitoring by wound care while patient is hospitalized. Addendum: 06/13/20 at 1507 by Jennifer Solis RN Amended: Links added.
[2020-06-13] MEDS: SODIUM BICARBONATE 50ML VIAL 75 ML, POTASSIUM CHLORIDE 20 MEQ in SOD CHL 0.45% 1,000 ML IV SCH ×2 (11:57→22:14)
[2020-06-13 13:00] VITALS: BP 135/61
--- NOTE | 2020-06-13 13:07 | NUR ---
AIR MATTRESS: Air mattress ordered at [facility]. MEGAN 06/13/20 @ 1901 Reference #[id number]. Please call [facility] at if needed to follow up. Addendum: 06/13/20 at 1307 by Jennifer Solis RN Amended: Links added.
--- NOTE | 2020-06-13 14:11 | NUR ---
Est energy needs 1230-6062 kcal (25-30 kcal/kg BW 56.9kg) Est protein needs 57-63g (1-1.1g/kg BW 56.9kg r/t low alb) Will reassess prn. Addendum: 06/13/20 at [address] Amended: Links added.
[2020-06-13 20:00] VITALS: BP 139/66
[2020-06-13 22:00] VITALS: BP 139/66
[2020-06-14] VITALS (8 sets, daily range): BP systolic 137–156; BP diastolic 55–67
[2020-06-14] MEDS: LEVOTHYROXINE SODIUM 112 MCG TAB PO SCH (06:29)
[2020-06-14] MEDS: hydrALAZINE HCL 25 MG TAB PO SCH ×2 (06:29→18:14)
[2020-06-14] MEDS: CHOLESTYRAMINE 4 GM POWDER PO SCH ×3 (06:29→18:14)
--- NOTE | 2020-06-14 07:30 | NUR ---
Opening Shift Note Assumed care of patient, awake and alert. No S/S of distress/SOB or pain. Instructed on POC and to call for assist PRN, will continue to monitor for changes Q1hr and PRN. Bed is locked and in lowest position. Call light within reach.
[2020-06-14 08:15] LABS: Basophils # (auto) 0 10 ^3/uL (0-0.2); Basophils % (auto) 0.4 % (0.0-2.0); Eosinophils # (auto) 0 10 ^3/uL (0-0.8); Eosinophils % (auto) 0.8 % (0.0-7.0); Hematocrit 29.7 % (36.0-46.0); Hemoglobin 9.5 g/dL (12.2-16.2); Lymphocytes % (auto) 25.4 % (10.0-50.0); Mean Corpuscular Hemoglobin 28.7 pg (28.0-32.0); Mean Corpuscular Volume 89.9 fL (80.0-100.0); Monocytes # (auto) 0.4 10 ^3/uL (0-1.3); Neutrophils # (auto) 2.4 10 ^3/uL (1.6-8.6); Neutrophils % (auto) 62.4 % (37.0-80.0); Nucleated Red Blood Cells % 0.4 %; Platelet Count (auto) 188 10^3/uL (140-450); White Blood Cell 3.9 10^3/uL (4.4-10.8)
[2020-06-14 08:30] LABS: Red Cell Distribution Width 20.5 % (11.8-14.3)
[2020-06-14 08:39] LABS: Potassium 4.4 mmol/L (3.5-5.1)
[2020-06-14 08:40] LABS: Calcium 7.1 mg/dL (8.5-10.1)
[2020-06-14 08:42] LABS: BUN/Creatinine Ratio 26.9
[2020-06-14] MEDS: cefTRIAXone 1GM/50ML D5W 50 ML IV SCH ×2 (08:46→09:00)
[2020-06-14] MEDS: SODIUM BICARBONATE 50ML VIAL 75 ML, POTASSIUM CHLORIDE 20 MEQ in SOD CHL 0.45% 1,000 ML IV SCH ×2 (08:57→19:48)
--- NOTE | 2020-06-14 09:55 | NUR ---
Contacted Kimberly, pt's daughter, regarding hospice consult. Pt resides with her other twin daughter, Brooks, in the daughters home. Daughter Brooks and Kimberly have POA for pt. Per daughter, Kimberly ( who was a hospice nurse), pt was on hospice previously with [facility]. She stated that pt and family are not ready for pt to and that pt still has a lot of life to live. stated she did not want pt on hospice until she was failure to thrive or dying. Informed daughter of hospice philosophy and educated regarding the benefits of hospice prior to last stages. Kimberly continued to decline and stated she'd been contacted by a hospice cash application representative yesterday but could not remember the name. Per Kimberly she does not want to go with [facility] or any other hospice at this time and that pt as well as family wants to focus on pt getting better. Will continue to follow up and provide intervention as appropriate.
[2020-06-14] MEDS: NYSTATIN TOPICAL CREAM 15GM TOP SCH (10:00)
[2020-06-14] MEDS: FAMOTIDINE 20 MG TAB PO SCH (11:34)
[2020-06-14] MEDS: APIXABAN 5 MG TAB PO SCH (11:35)
[2020-06-14] MEDS: amLODIPine BESYLATE 5 MG TAB PO SCH (11:35)
--- NOTE | 2020-06-14 15:00 | NUR ---
PHONE CALL MADE TO DAUGHTER REGARDING PATIENT DISCHARGE. DAUGHTER WOULD LIKE TRANSPORTATION PROVIDED FOR PATIENT VIA [employer] [facility] WILL BE CONTACTED TO ORDER TRANSPORTATION VIA [facility] [facility].
--- NOTE | 2020-06-14 16:57 | NUR ---
PHONE CALL RECEIVED FROM MICROBIOLOGY DEPARTMENT REGARDING PATIENT URINE CULTURE POSITIVE FOR MDRO-KLEBSIELLA PNEUMONIAE. PAGED DR. HINES REGARDING MICROBIOLOGY RESULTS AND GIVEN SUSCEPTIBILITIES. DR. HINES ORDERED NITROFURANTOIN 100 MG PO ONCE. PATIENT WILL CONTINUE WITH MEDICATIONS AT HOME, DR. HINES WILL CALL IN MEDICATION. WILL FOLLOW DR. HINES ORDERS.
--- NOTE | 2020-06-14 16:59 | NUR ---
PHONE CALL RECEIVED FROM [facility]POKE TO [facility] REGARDING TRANSPORTATION FOR PATIENT. PATIENT WILL BE TRANSPORTED VIA [employer] AND IT WILL BE FOR SMALL ORDER CUTTER TIME OF 9PM.
[2020-06-14] MEDS ORDERED: NITROFURANTOIN 100 mg CAP PO ONE (18:15)
--- NOTE | 2020-06-14 19:45 | NUR ---
Opening Shift Note Assumed care of patient, awake and alert. No S/S of distress/SOB or pain. Instructed on POC and discharge plan and to call for assist PRN, will continue to monitor for changes Q1hr and PRN. Safety measures in place, bed in lowest position, bed rails raised x2, call light within reach.
--- NOTE | 2020-06-14 20:30 | NUR ---
Fairchild catheter dc'd Order to discontinue fairchild catheter. Fairchild dc'd with clean technique following deflation of balloon. Patient tolerated well with no complaints of pain. Pt to be discharged today.
--- NOTE | 2020-06-14 20:30 | NUR ---
IV removal IV DC'd with clean sterile technique, catheter fully intact. Pressure dressing applied to site. Patient tolerated well.
--- NOTE | 2020-06-14 21:15 | NUR ---
Pt discharged from unit and transported home via [facility] transport team. Pts discharge instructions given, belongings placed in bag and sent with pt. Tele box removed. All paperwork signed. Pt in stable condition, VS WNL. All questions and concerned addressed. Endorsed care to transport team.
== END 2020-06-14 21:15 | disposition home health service (06) | DRG 392 ==
LOC: EDBD 20:19 → ER 20:22 → TELE 20:23 → TELE-WESTW 06-12 10:02
PROVIDERS: ADMIT Hospitalist; ATTEND Hospitalist
DX: K91.2 Postsurgical malabsorption, not elsewhere classified (principal); E87.2 Acidosis; Z16.24 Resistance to multiple antibiotics; J90 Pleural effusion, not elsewhere classified; J98.11 Atelectasis; E87.8 Other disorders of electrolyte and fluid balance, not elsewhere classified; E83.42 Hypomagnesemia; K62.89 Other specified diseases of anus and rectum; I48.91 Unspecified atrial fibrillation; I25.10 Atherosclerotic heart disease of native coronary artery without angina pectoris; I10 Essential (primary) hypertension; B35.6 Tinea cruris; B35.1 Tinea unguium; D64.9 Anemia, unspecified; E78.5 Hyperlipidemia, unspecified; F32.9 Major depressive disorder, single episode, unspecified; K21.9 Gastro-esophageal reflux disease without esophagitis; M10.9 Gout, unspecified; M19.90 Unspecified osteoarthritis, unspecified site; Z95.0 Presence of cardiac pacemaker; Z85.41 Personal history of malignant neoplasm of cervix uteri; Z90.710 Acquired absence of both cervix and uterus; Z95.5 Presence of coronary angioplasty implant and graft; Z96.643 Presence of artificial hip joint, bilateral; Z79.01 Long term (current) use of anticoagulants; Z82.49 Family history of ischemic heart disease and other diseases of the circulatory system; Z83.3 Family history of diabetes mellitus; B96.1 Klebsiella pneumoniae [K. pneumoniae] as the cause of diseases classified elsewhere; B96.20 Unspecified Escherichia coli [E. coli] as the cause of diseases classified elsewhere; E83.39 Other disorders of phosphorus metabolism; R80.9 Proteinuria, unspecified
CPT/HCPCS: 36415; 36600; 51702; 74176; 80048; 80053; 81001; 82150; 82570; 82805; 83605; 83690; 83735; 83880; 84100; 84156; 84300; 84443; 84484; 85025; 85379; 85610; 85730; 87040; 87086; 87088; 87186; 93005; 96361; 96365; 96367; G0378; J0696; J7060

== ENCOUNTER 2020-09-13 15:38 | Emergency (ER) | payer OTHER ==
[~2020-09-13] VITALS: Ht 157.5 cm; Wt 61.2 kg
[~2020-09-13 15:38] MED LIST changes: +AMLO5TAB15 PO; +APIX2.5T PO; -ATOR40TA52 PO; +CHL4PW GT; +CHL4PW PO; +DEXA4TAB PO; +FAMO-12 PO; +FLUC150T38 PO; +FURO20TA3 PO; +HYDR50TA15 PO; +LEVO112T4 PO; +LOP2C PO; -MAGN400T40 OR; +NYS15TP TOP; +POTA10TA32 PO; -POTA10TA51 PO; +SODI650T PO; +SPIR25TA8 PO; +SULF400T11 PO
[2020-09-13] MEDS ORDERED: SODIUM CHLORIDE 0.9% 1,000 ML IV ONE (15:45)
[2020-09-13] MEDS ORDERED: cefTRIAXone 1GM/50ML D5W 50 ML IV ONE (17:15)
[2020-09-13] MEDS ORDERED: AZITHROMYCIN 500MG/ 250ML 250 ML IV ONE (17:15)
[2020-09-13] MEDS ORDERED: metroNIDAZOLE 500MG/100ML 100 ML IV ONE (17:15)
[2020-09-13 18:58] LABS: Basophils # (auto) 0 10 ^3/uL (0-0.2); Basophils % (auto) 0.2 % (0.0-2.0); Eosinophils # (auto) 0 10 ^3/uL (0-0.8); Hematocrit 31.9 % (36.0-46.0); Hemoglobin 10.7 g/dL (12.2-16.2); Lymphocytes # (auto) 0.8 10 ^3/uL (0.4-5.4); Mean Corpuscular Hemoglobin 34.1 pg (28.0-32.0); Monocytes # (auto) 0.3 10 ^3/uL (0-1.3); Nucleated Red Blood Cells % 0.1 %
[2020-09-13 19:00] LABS: Eosinophils % (auto) 0.2 % (0.0-7.0); Lymphocytes % (auto) 10.8 % (10.0-50.0); Mean Corpuscular Hgb Conc. 33.4 g/dL (32.0-36.0); Monocytes % (auto) 3.5 % (0.0-12.0); Neutrophils # (auto) 6.4 10 ^3/uL (1.6-8.6); Neutrophils % (auto) 85.3 % (37.0-80.0); Platelet Count (auto) 255 10^3/uL (140-450); Red Blood Cells 3.13 10^6/uL (4.0-5.20); Red Cell Distribution Width 15.3 % (11.8-14.3); White Blood Cell 7.5 10^3/uL (4.4-10.8)
[2020-09-13 19:14] LABS: Albumin 1.1 g/dL (3.4-5.0); Calcium 6.7 mg/dL (8.5-10.1)
[2020-09-13 19:20] LABS: BUN/Creatinine Ratio 25.2; Bilirubin, Total 0.3 mg/dL (0.2-1.0); Total Protein 4.7 g/dL (6.4-8.2)
[2020-09-13 19:25] LABS: INR 1.29 (0.9-1.15)
[2020-09-13 19:45] LABS: Potassium 2.5 mmol/L (3.5-5.1)
[2020-09-13] MEDS ORDERED: POTASSIUM CHL 20MEQ/100ML 100 ML IV ONE (20:00)
[2020-09-13] MEDS ORDERED: POTASSIUM EFFERVESENT TAB 25 MEQ PO ONE (20:00)
[2020-09-14 07:15] VITALS: BP 158/70
== END 2020-09-14 11:30 | disposition home or self-care (01) ==
LOC: ER 15:38 → EDBD 15:38 → ER 09-14 11:23
DX: K80.20 Calculus of gallbladder without cholecystitis without obstruction (principal); J18.9 Pneumonia, unspecified organism; E86.0 Dehydration; K59.00 Constipation, unspecified; K21.9 Gastro-esophageal reflux disease without esophagitis; E78.5 Hyperlipidemia, unspecified; I10 Essential (primary) hypertension; Z90.710 Acquired absence of both cervix and uterus; Z98.61 Coronary angioplasty status
CPT/HCPCS: 36415; 71045; 74176; 80053; 83880; 84484; 85025; 85610; 85730; 96365; 96366; 96368; 99285; J0456; J0696; J3480; J3490; J7030

== ENCOUNTER 2020-09-24 13:27 | Inpatient (IN) | payer OTHER ==
[~2020-09-24] VITALS: Ht 162.6 cm; Wt 54.4 kg
[2020-09-24] MEDS ORDERED: PANTOPRAZOLE 40mg/50ML NS AE 50 ML IV ONE (14:00)
[2020-09-24 16:00] LABS: Basophils # (auto) 0 10 ^3/uL (0-0.2)
[2020-09-24 16:02] LABS: Eosinophils # (auto) 0 10 ^3/uL (0-0.8); Hematocrit 30.3 % (36.0-46.0); Hemoglobin 9.9 g/dL (12.2-16.2); Lymphocytes # (auto) 0.6 10 ^3/uL (0.4-5.4); Lymphocytes % (auto) 4.7 % (10.0-50.0); Mean Corpuscular Hgb Conc. 32.6 g/dL (32.0-36.0); Mean Corpuscular Volume 104.2 fL (80.0-100.0); Monocytes # (auto) 0.2 10 ^3/uL (0-1.3); Neutrophils % (auto) 93.3 % (37.0-80.0); Platelet Count (auto) 124 10^3/uL (140-450); Red Cell Distribution Width 15.7 % (11.8-14.3); White Blood Cell 11.8 10^3/uL (4.4-10.8)
[2020-09-24 16:14] LABS: BUN/Creatinine Ratio 13.9; Calcium 6.8 mg/dL (8.5-10.1); Magnesium 1.6 mg/dL (1.6-2.6)
[2020-09-24] MEDS ORDERED: METOPROLOL TARTRATE 1MG/1ML-5ML VIAL IV ONE (16:15)
[2020-09-24 16:19] LABS: Bilirubin, Total 0.8 mg/dL (0.2-1.0); Total Protein 3.8 g/dL (6.4-8.2)
[2020-09-24 16:27] LABS: Partial Thromboplastin Time 69.4 sec (23.0-31.2)
[2020-09-24 17:00] LABS: INR > 8.0 (0.9-1.15)
[2020-09-24] MEDS ORDERED: POTASSIUM CHL 20MEQ/100ML 100 ML IV ONE (18:00)
[2020-09-24] MEDS ORDERED: MORPHINE SULF INJ 2 MG/ML SYRINGE 1ML IV PRN (18:30)
[2020-09-24] MEDS ORDERED: PHYTONADIONE(VitK) ORAL Susp 10mg/10ml(1mg/ml) PO ONE (18:30)
[2020-09-24] MEDS ORDERED: NITROGLYCERIN 0.4 MG SL TAB SL PRN (18:30)
[2020-09-25] MEDS ORDERED: NOREPINEPHRINE 8 MG/250ML KIT 250 ML IV ONE (02:23)
[2020-09-25] MEDS ORDERED: SOD CHL 0.45% 1,000 ML IV SCH (02:30)
[2020-09-25] MEDS ORDERED: NOREPINEPHRINE 8 MG/250ML KIT 250 ML IV SCH (02:30)
[2020-09-25 03:02] VITALS: BP 100/34
[2020-09-25] MEDS ORDERED: cefTRIAXone SOD 1,000 MG VL IM ONE (10:00)
== END 2020-09-25 03:10 | disposition expired | DRG 871 ==
LOC: EDUNIT# 13:27 → EDBD 13:27 → ER 13:27 → TELE 13:28
PROVIDERS: ADMIT Internal Medicine; ATTEND Emergency Medicine
PROC: 06HY33Z Insertion of Infusion Device into Lower Vein, Percutaneous Approach (ICD-10-PCS; principal; 2020-09-24)
DX: A41.9 Sepsis, unspecified organism (principal); E43 Unspecified severe protein-calorie malnutrition; G93.41 Metabolic encephalopathy; K92.2 Gastrointestinal hemorrhage, unspecified; N39.0 Urinary tract infection, site not specified; N17.9 Acute kidney failure, unspecified; I13.0 Hypertensive heart and chronic kidney disease with heart failure and stage 1 through stage 4 chronic kidney disease, or unspecified chronic kidney disease; D64.9 Anemia, unspecified; I50.9 Heart failure, unspecified; E87.6 Hypokalemia; N18.9 Chronic kidney disease, unspecified; I48.0 Paroxysmal atrial fibrillation; K52.9 Noninfective gastroenteritis and colitis, unspecified; Z66 Do not resuscitate; I25.10 Atherosclerotic heart disease of native coronary artery without angina pectoris; Z68.20 Body mass index [BMI] 20.0-20.9, adult; Z83.3 Family history of diabetes mellitus; Z95.5 Presence of coronary angioplasty implant and graft; Z99.3 Dependence on wheelchair; Z82.49 Family history of ischemic heart disease and other diseases of the circulatory system; Z85.41 Personal history of malignant neoplasm of cervix uteri; Z90.710 Acquired absence of both cervix and uterus; Z79.899 Other long term (current) drug therapy
CPT/HCPCS: 36415; 36556; 70450; 71045; 80053; 83735; 84484; 85025; 85379; 85610; 85730; 86850; 86900; 86901; 87045; 87427; 93005; 96365; 96367; 99291; G0378; J3480